=== PATIENT | male | born 1955 | race Caucasian/White ===

== ENCOUNTER 2020-04-20 15:36 | Outpatient (REF) | payer BC, SELFPAY ==
--- NOTE | ~2020-04-20 | XR_ITS ---
EXAMINATION: XR KNEE, LEFT CLINICAL INFORMATION: Knee pain COMPARISON: Previous x-ray July 2015 TECHNIQUE: Four views of the left knee. FINDINGS: Bone alignment is normal. No fracture or dislocation is seen. There is joint space narrowing and osteophyte formation at the medial femoral tibial joint. There are small osteophytes at the patellofemoral joint. There is an osteophyte at the quadriceps tendon insertion to the patella. There is no joint effusion. XR/XR knee LT 4V IMPRESSION: Mild degenerative changes.
== END 2020-04-20 15:37 | disposition home or self-care (01) ==
LOC: HO.HMGCX 15:36
PROVIDERS: PCP Nurse Practitioner Family; Visit Provider Nurse Practitioner Family
DX: M25.569 Pain in unspecified knee (principal)
CPT/HCPCS: 73564

== ENCOUNTER → 2020-05-09 10:18 | Outpatient (BNVA) | payer BC, SELFPAY | PROVIDERS: PCP Nurse Practitioner Family; Visit Provider Orthopaedic Surgery | DX: M17.12 Unilateral primary osteoarthritis, left knee (principal) | CPT/HCPCS: 20610; J1100 ==

== ENCOUNTER 2020-05-26 08:23 | Outpatient (REF) | payer BC, SELFPAY ==
--- NOTE | ~2020-05-26 | XR_ITS ---
EXAMINATION: XR KNEE AP STANDING CLINICAL INFORMATION: Pain knee. COMPARISON: None TECHNIQUE: AP bilateral standing view of the knees was obtained. FINDINGS: There is moderate medial left and mild right medial compartment loss of joint space. There is moderate periapical spurring medial compartment left knee. No loose bodies or bony erosive changes seen. The soft tissues are normal. XR/XR knee standing BI IMPRESSION: Medial compartment degenerative arthritic changes both knees. There is no visible acute fracture or dislocation seen.
== END 2020-05-26 08:24 | disposition home or self-care (01) ==
LOC: HO.HOSX 08:23
PROVIDERS: Visit Provider Orthopaedic Surgery
DX: M17.12 Unilateral primary osteoarthritis, left knee (principal); M25.462 Effusion, left knee
CPT/HCPCS: 73565

== ENCOUNTER → 2020-06-13 08:47 | Outpatient (BNVA) | payer BC, SELFPAY | PROVIDERS: Visit Provider Orthopaedic Surgery | DX: M17.12 Unilateral primary osteoarthritis, left knee (principal) | CPT/HCPCS: 20610; J1100 ==

== ENCOUNTER → 2020-06-30 08:37 | Outpatient (BNVA) | payer BC, SELFPAY | PROVIDERS: Visit Provider Orthopaedic Surgery ==

== ENCOUNTER → 2020-08-11 08:30 | Outpatient (BNVA) | payer BC, SELFPAY | PROVIDERS: PCP Nurse Practitioner Family; Visit Provider Orthopaedic Surgery ==

== ENCOUNTER → 2020-08-29 09:52 | Outpatient (BNVA) | payer BC, SELFPAY | PROVIDERS: PCP Nurse Practitioner Family; Visit Provider Orthopaedic Surgery | DX: Z01.812 Encounter for preprocedural laboratory examination (principal); Z01.810 Encounter for preprocedural cardiovascular examination; M17.12 Unilateral primary osteoarthritis, left knee ==

== ENCOUNTER 2020-09-01 07:00 | Outpatient (RCR) | payer BC, SELFPAY ==
[2020-07-25 07:12] VITALS: BP 118/70; PULSE 48
--- NOTE | 2020-08-09 08:49 | MHC.PT.OD ---
[facility] [place] Office [place] Office [place] Office [address] Sihrley Gracia [address] [phone] F: [phone] F: [phone] F: [phone] F: [phone] Physical Therapy Daily Note Diagnosis: M17.12 Unilateral primary osteoarthritis left knee signed by Dr. Lane date of script 07/19/20 Date of Surgery: Date of Evaluation: 07/25/20 Date of Treatment: 08/09/20 Treatments to Date: 5 Cancellations to Date: No Shows to Date: Authorized Visits: Insurance End Date: Precautions/ Contraindications:Sinus bradycardia, sleep apnea Subjective: Still really bothering me since I played golf. Pain Score and Location: 8 L knee Objective Flowsheet: Tests & Measures Assessment of heart rate: 55 BPM VIA PULSE OX ON BIKE 96% SPO2 ROOM AIR Exercises Science ExchangeFIT bike seat#11 level 2.5 x 10 minutes plus [place]own x additonal five minutes SLR into flexion triale SAQ irritated L knee so limited to 5 reps each Prone hip extension overpillow x 2 sets 10R Standing hip extension (pool program reviewed), standing hip abduction x 2 sets 10R (pool program), SL hip abduction x 2 sets 10R Prostretch x30 sec hold X 4R each side Prone quad stretch with strap x 2 sets 10R SEATED HS STRETCH, GENTLE DANGLES, Provided patient with educational information about TKA via orthoinfo to address patient questions/concerns he had. PRONE FOR STM TO MEDIAL HS INSERTION,PROXIMAL GASTROC MUSCULATURE X 10 MINUTES IN EFFORT TO REDUCE PAIN POSTERIOR KNEE/INCREASE TISSUE EXTENSIBILITY, EDUCATION FOR SELF CARE, REVIEWED AND EDUCATED PT RE: SELF TAPING V STRIPS WITH THIRD I STRIP TO OFFLOAD TIBIOFEMORAL JOINT APPLIED WHILE IN 90 FLEX STRETCH WITH PT TRIALING SELF CARE (+) CARRYOVER EDUCATED TO REMOVE BEFORE BED TO WEAR WHEN ON FEET Education re: icing x 10-15 minutes, education re: self care with goals of therapy, findings of evaluation, education re: anatomy of knee, questions re: TKA rehab, educated re: icing, use of pool, short gentle walks to tolerance, finding balance between stretching/icing post activity Modalities LESTIM VIA web [employer] PORTABLE UNIT SETTING #1 CH1/CH2 CROSS X PATTERNED AROUND L KNEE INTENSITY 10MA>12 MA WITH ICE WHILE IN KNEE EXT STRETCH X 10 MINUTES IN EFFORT TO REDUCE JOINT PAIN. SKIN INSPECTION PERFORMED KNEE PRE/POST CARE, WITH ICE COMBO Assessment: Issued quad stretch for home program, reviewed pool hip abd and ext as well as for bed/mat hip abd/ext. Pt is a pleasant, RHD retired 64 y/o male, referred to PT for treatment from Dr. Lane for L knee OA following ongoing history of increasing L knee pain. Pt exhibits decreased tolerance for walking short distances, standing, and stairs. He does not use any form of AD. He is tentatively scheduled for L TKA on 09/28/20; has had previous knee injections x 2 and history of having L knee drained (Dr. Lane [facility]). Pt would benefit from attending skilled PT services at a frequency 2x/week x 4 weeks to address impairments, implement HEP, and restore functional mobility tolerance to increase independent function. PT Plan: Pt has been using airdyne bike at home 1-2x/daily 10-15 minutes, reports limited relief with stretching/icing. Reports restless legs/night sx are the worst... Has been able to complete SLR in the past with good eccentric control/ext however today it was irritating so it was held after 5 reps. Pt to see Dr. Lane's office for follow up on ... reports ongoing soreness, new onset of R medial ankle soreness, encouraged trial icing. (Iced R ankle with L knee/ice/estim today). Short Term Goals: 1. AAROM -5 degrees L knee ext. 2. AAROM flexion 120 L knee. 3. SLR with good eccentric control. 4. Strength hip abd 5/5 B. 5. Demonstrate carryover with HEP, initiate self care management. Residential Goals: 1. AAROM>AROM L knee 0 to 125 degrees. 2. Strength L knee 5/5 ext/flex. 3. Demonstrate functional squat with good mechanics, knee pain <3/10. 4. I HEP. Electronically signed by: Ting Johnson, PT, DPT
--- NOTE | 2020-08-29 11:15 | ECG_ITS ---
Test Reason : PREOP, BRADYCARDIA Blood Pressure : / mmHG Vent. Rate : 044 BPM Atrial Rate : 044 BPM P-R Int : 224 ms QRS Dur : 082 ms QT Int : 520 ms P-R-T Axes : 065 041 060 degrees QTc Int : 444 ms Marked sinus bradycardia with 1st degree A-V block Abnormal ECG When compared with ECG of 26-DEC-2009 05:01, Vent. rate has decreased BY 24 BPM Referred By: Doug Lane Electronically Signed By:Xavi Nino
[2020-08-29 11:44] LABS: Basophils Percent Auto 0.4 % (0-2); Eosinophils Absolute Auto 0.2 X10*3/uL (0.0-0.4); Hematocrit 41.3 % (42-52); Hemoglobin 13.6 g/dl (14.0-18.0); Imm Gran Abs Auto 0.02 X10*3/uL (0.00-0.03); Imm Gran Pct Auto 0.4 % (0.0-0.4); Lymphocytes Absolute Auto 1.4 X10*3/uL (1.2-4.9); Lymphocytes Percent Auto 25.1 % (20-40); MANUAL DIFF FLAG NO; Mean Corpuscular HGB Conc 32.9 g/dl (31.0-36.0); Mean Corpuscular Hemoglobin 29.8 pg (27.0-33.0); Mean Corpuscular Volume 90.6 fL (80-98); Mean Platelet Volume 10.6 fL (9.4-12.4); Monocytes Absolute Auto 0.8 X10*3/uL (0.1-1.2); Monocytes Percent Auto 13.3 % (2-11); Neutrophils Absolute Auto 3.3 X10*3/uL (2.0-8.3); Neutrophils Percent Auto 57.8 % (45-73); Platelet Count 182 X10*3/uL (160-400); Red Blood Count 4.56 X10*6/uL (4.60-5.80); Red Cell Distribution Width 12.9 % (11.0-16.0); White Blood Count 5.7 X10*3/uL (4.8-10.8)
[2020-08-29 12:15] LABS: Anion Gap 13 (12-20); Blood Urea Nitrogen 25 mg/dL (9-16); Calcium 9.1 mg/dL (8.4-10.2); Carbon Dioxide 25 mmol/L (22-29); Chloride 106 mmol/L (96-108); Estimated Glomerular Filt Rate > 60; Glucose Random 93 mg/dL (60-115); Potassium 4.5 mmol/L (3.3-5.1); Sodium 139 mmol/L (135-145)
== END 2021-01-20 12:48 | disposition home or self-care (01) ==
LOC: HO.PTWFD 07:00
PROVIDERS: PCP Nurse Practitioner Family; Visit Provider Orthopaedic Surgery
DX: M17.12 Unilateral primary osteoarthritis, left knee (principal)
CPT/HCPCS: 36415; 80048; 85025; 93005; 97014; 97035; 97110; 97140; 97162; 97535

== ENCOUNTER → 2020-10-13 09:16 | Outpatient (BNVA) | payer MEDICARE, BC, SELFPAY | PROVIDERS: PCP Nurse Practitioner Family; Visit Provider Orthopaedic Surgery | DX: M17.12 Unilateral primary osteoarthritis, left knee (principal); I26.99 Other pulmonary embolism without acute cor pulmonale | CPT/HCPCS: 20610; J1100 ==

== ENCOUNTER 2021-03-06 10:43 | Outpatient (REF) | payer MEDICARE, BC, SELFPAY ==
[2021-03-06 14:00] LABS: MANUAL DIFF FLAG NO
[2021-03-06 14:06] LABS: Basophils Percent Auto 0.4 % (0-2); Eosinophils Absolute Auto 0.2 X10*3/uL (0.0-0.4); Eosinophils Percent Auto 3.4 % (0-4); Hemoglobin 14.4 g/dl (14.0-18.0); Imm Gran Abs Auto 0.03 X10*3/uL (0.00-0.03); Imm Gran Pct Auto 0.4 % (0.0-0.4); Lymphocytes Absolute Auto 1.7 X10*3/uL (1.2-4.9); Lymphocytes Percent Auto 25.7 % (20-40); Mean Corpuscular Hemoglobin 29.4 pg (27.0-33.0); Mean Platelet Volume 10.7 fL (9.4-12.4); Monocytes Absolute Auto 0.7 X10*3/uL (0.1-1.2); Monocytes Percent Auto 10.9 % (2-11); Neutrophils Percent Auto 59.2 % (45-73); Platelet Count 208 X10*3/uL (160-400); Red Blood Count 4.89 X10*6/uL (4.60-5.80); Red Cell Distribution Width 13.1 % (11.0-16.0); White Blood Count 6.8 X10*3/uL (4.8-10.8)
[2021-03-06 14:09] LABS: INTERNATIONAL NORM RATIO 1.2 (0.9-1.1); Prothrombin Time 13.7 SEC (9.9-13.0)
[2021-03-06 14:12] LABS: Partial Thromboplastin Time 37.9 SEC (24.1-38.0)
[2021-03-06 14:23] LABS: Alanine Aminotransferase 26 U/L (0-40); Albumin Level 4.4 g/dL (3.5-5.0); Alkaline Phosphatase 58 U/L (39-117); Anion Gap 11 (12-20); Aspartate Amino Transferase 15 U/L (5-37); Bilirubin Total 0.7 mg/dL (0.0-1.0); Blood Urea Nitrogen 14 mg/dL (9-16); Calcium 9.4 mg/dL (8.4-10.2); Carbon Dioxide 29 mmol/L (22-29); Chloride 102 mmol/L (96-108); Estimated Glomerular Filt Rate > 60; Glucose Random 89 mg/dL (60-115); Potassium 4.4 mmol/L (3.3-5.1); Sodium 138 mmol/L (135-145)
== END 2021-03-06 10:44 | disposition home or self-care (01) ==
LOC: HO.HMGCLDS 10:43
PROVIDERS: Absent Provider Orthopaedic Surgery; PCP Nurse Practitioner Family; Visit Provider Nurse Practitioner Family
DX: Z01.812 Encounter for preprocedural laboratory examination (principal); Z01.818 Encounter for other preprocedural examination
CPT/HCPCS: 36415; 80053; 85025; 85610; 85730

== ENCOUNTER 2021-03-13 10:04 | Outpatient (REF) | payer MEDICARE, BC, SELFPAY | END 2021-03-13 10:05 | disposition home or self-care (01) | LOC: HO.HMGCLDS 10:04 | PROVIDERS: Visit Provider Internal Medicine | DX: Z20.822 Contact with and (suspected) exposure to COVID-19 (principal) | CPT/HCPCS: C9803; U0003; U0005 ==

== ENCOUNTER 2021-03-23 08:40 | Outpatient (REF) | payer MEDICARE, BC, SELFPAY ==
--- NOTE | ~2021-03-23 | XR_ITS ---
EXAMINATION: XR KNEE, LEFT XR KNEE STANDING, BILATERAL CLINICAL INFORMATION: Left knee pain. COMPARISON: 05/26/2020 and 04/20/2020 TECHNIQUE: AP standing view of both knees with patellar and lateral views of the left knee. FINDINGS: AP standing view of both knees demonstrate severe narrowing of the medial joint space compartment of the left knee which appears to have progressed slightly compared to previous study of 05/26/2020. No acute fracture or dislocation is evident. Marginal spurring is seen about the medial and lateral joint space compartments of the left knee. There is no significant narrowing of the medial or lateral joint space compartments of the right knee. Prominent varicosities are seen within the soft tissues of the right leg with the appearance of a few within the left calf. [place] and lateral views of the left knee do not demonstrate evidence of acute fracture or dislocation. Prominent spurring at the patellofemoral joint is present as well as a small suprapatellar effusion. There is a large patellar spur site of insertion of the quadriceps tendon. XR/XR knee LT 2V IMPRESSION: Severe degenerative change of the medial joint space compartment of the left knee and the patellofemoral joint with small suprapatellar effusion.
--- NOTE | ~2021-03-23 | XR_ITS ---
EXAMINATION: XR KNEE, LEFT XR KNEE STANDING, BILATERAL CLINICAL INFORMATION: Left knee pain. COMPARISON: 05/26/2020 and 04/20/2020 TECHNIQUE: AP standing view of both knees with patellar and lateral views of the left knee. FINDINGS: AP standing view of both knees demonstrate severe narrowing of the medial joint space compartment of the left knee which appears to have progressed slightly compared to previous study of 05/26/2020. No acute fracture or dislocation is evident. Marginal spurring is seen about the medial and lateral joint space compartments of the left knee. There is no significant narrowing of the medial or lateral joint space compartments of the right knee. Prominent varicosities are seen within the soft tissues of the right leg with the appearance of a few within the left calf. [place] and lateral views of the left knee do not demonstrate evidence of acute fracture or dislocation. Prominent spurring at the patellofemoral joint is present as well as a small suprapatellar effusion. There is a large patellar spur site of insertion of the quadriceps tendon. XR/XR knee standing BI IMPRESSION: Severe degenerative change of the medial joint space compartment of the left knee and the patellofemoral joint with small suprapatellar effusion.
== END 2021-03-23 08:41 | disposition home or self-care (01) ==
LOC: HO.HOSX 08:40
PROVIDERS: Visit Provider Physician Assistant
DX: M17.12 Unilateral primary osteoarthritis, left knee (principal); M25.562 Pain in left knee; Z79.899 Other long term (current) drug therapy
CPT/HCPCS: 73560; 73565; 99212

== ENCOUNTER 2021-03-29 06:18 | Inpatient (IN) | payer MEDICARE, BC, SELFPAY ==
[2021-03-16 11:56] VITALS: BP 135/83; PULSE 59; RESP 20; O2SAT 96; BMI 36.6
[2021-03-16 14:58] LABS: MRSA Nasal PCR NEGATIVE (Negative); SA Nasal PCR NEGATIVE (Negative)
--- NOTE | 2021-03-27 08:57 | P.CONAN_ITS ---
Documented by User: Tawnya Yañez NP 03/27/21 09:00 HPI - Anesthesia Eval Consult details Narrative: 65yo M for Left Knee Replacement Total PCP cleared Xarelto for PE - hold 48 hours preop per heme PMFSH Active Problems Active Problems: All Active Problems (Updated 03/16/21 @ 11:53 by Monse Monreal RN) Restless leg (Acute) Knee pain (Acute) Osteoarthritis of left knee (Acute) Pulmonary embolism (Acute) Pre-op evaluation (Acute) Past Medical History Medical History On anticoagulant therapy Pulmonary emboli Restless leg syndrome Sinus bradycardia Sleep apnea Family History Family History Father History of CVA (cerebrovascular accident) Diabetes mellitus Mother Diabetes mellitus Surgical History Surgical History History of umbilical hernia repair Hx of colonoscopy Social History Social History Housing: House Are you a primary critical care physician assistant to a significant other at home: No Do you presently have visiting nurse or other home services: No Alcohol intake: current Alcohol intake frequency: a few times a month Patient Tobacco Use Status: Never used Tobacco e-Cigarette/Vaping Use: Never Used Second Hand Smoke Exposure: No Use of substances other than those prescribed or required for medical reasons: No Have you been hit, kicked, punched, or otherwise hurt by someone within the past year? If so, by whom?: No Are you DNR?: No Advance Directives: No Advance Directives Information Provided: Yes (given to patient- states Jannet would be HCP) Advance Directives on File: No Recently lost weight without trying: No Eating poorly because of decreased appetite: No Nutrition Risks: No Nutritional Risk Poor oral hygiene: No Current occupational status: retired Current occupation: right handed Meds Allergies Allergy/AdvReac Type Severity Reaction Status Date / Time No Known Allergies Allergy Verified 03/23/21 12:44 [No Known Allergies*] Home Medications Medication Instructions Recorded Confirmed Last Taken Type ferrous gluconate 324 mg (38 mg 324 mg PO Q OTHER DAY 03/01/21 03/23/21 Unknown History iron) tablet oxycodone 10 mg tablet 10 mg PO BEDTIME 03/23/21 03/23/21 Unknown History Exam Exam Date and Time: March 27, 2021 0857 Height,Weight and Vital Signs: Height 6 ft Weight 122.47 kg Last Vital Signs Pulse 59 03/16/21 11:56 Resp 20 03/16/21 11:56 BP 135/83 03/16/21 11:56 Pulse Ox 96 03/16/21 11:56 Pertinent Lab Results Pertinent Lab Results: Laboratory Tests 03/16/21 03/16/21 12:40 Unknown Nasal Screen MRSA (PCR) NEGATIVE Nasal S. aureus Screen NEGATIVE Nasal MRSA/S.aureus Interp SEE NOTE Blood Type A Negative Antibody Screen NEGATIVE Laboratory Tests 03/06/21 03/06/21 10:50 10:50 WBC 6.8 Hgb 14.4 Hct 45.0 Plt Count 208 Sodium 138 Potassium 4.4 Chloride 102 Carbon Dioxide 29 BUN 14 Creatinine 0.85 Narrative Narrative: EKG 02/2021 SB @ 56 with 1st deg AV block Non-specific ST-T abn Assessment and Plan Assessment Anesthesia Assessment: Chart Reviewed Documented by User: Lyly Huang MD 03/29/21 08:37 PMFSH Active Problems Active Problems: All Active Problems (Updated 03/16/21 @ 11:53 by Monse Monreal RN) Restless leg (Acute) Knee pain (Acute) Osteoarthritis of left knee (Acute) Pulmonary embolism (Acute)09/2020. On xarelto Pre-op evaluation (Acute) Central Sleep apnea. Being evaluated for Adaptive servo-ventilation at [facility] Past Medical History Medical History On anticoagulant therapy Pulmonary emboli Restless leg syndrome Sinus bradycardia Sleep apnea Family History Family History Father History of CVA (cerebrovascular accident) Diabetes mellitus Mother Diabetes mellitus Family history of problems with anesthesia: No Surgical History Surgical History History of umbilical hernia repair Hx of colonoscopy History of Problems with Anesthesia: No Social History Social History Housing: House Are you a primary critical care physician assistant to a significant other at home: No Do you presently have visiting nurse or other home services: No Alcohol intake: current Alcohol intake frequency: a few times a month Patient Tobacco Use Status: Never used Tobacco e-Cigarette/Vaping Use: Never Used Second Hand Smoke Exposure: No Use of substances other than those prescribed or required for medical reasons: No Have you been hit, kicked, punched, or otherwise hurt by someone within the past year? If so, by whom?: No Are you DNR?: No Advance Directives: No Advance Directives Information Provided: Yes (given to patient- states Jannet would be HCP) Advance Directives on File: No Recently lost weight without trying: No Eating poorly because of decreased appetite: No Nutrition Risks: No Nutritional Risk Poor oral hygiene: No Current occupational status: retired Current occupation: right handed Meds Allergies Allergy/AdvReac Type Severity Reaction Status Date / Time No Known Allergies Allergy Verified 03/23/21 12:44 [No Known Allergies*] Home Medications Medication Instructions Recorded Confirmed Last Taken Type ferrous gluconate 324 mg (38 mg 324 mg PO Q OTHER DAY 03/01/21 03/23/21 Unknown History iron) tablet oxycodone 10 mg tablet 10 mg PO BEDTIME 03/23/21 03/23/21 Unknown History Exam Height,Weight and Vital Signs: Height 6 ft Weight 122.47 kg Last Vital Signs Pulse 59 03/16/21 11:56 Resp 20 03/16/21 11:56 BP 135/83 03/16/21 11:56 Pulse Ox 96 03/16/21 11:56 Vital Signs Temp Pulse Resp BP Pulse Ox 03/29/21 06:43 97.6 F 46 L 18 140/77 H 98 Pertinent Lab Results Pertinent Lab Results: Laboratory Tests 03/16/21 03/16/21 12:40 Unknown Nasal Screen MRSA (PCR) NEGATIVE Nasal S. aureus Screen NEGATIVE Nasal MRSA/S.aureus Interp SEE NOTE Blood Type A Negative Antibody Screen NEGATIVE Laboratory Tests 03/06/21 03/06/21 10:50 10:50 WBC 6.8 Hgb 14.4 Hct 45.0 Plt Count 208 Sodium 138 Potassium 4.4 Chloride 102 Carbon Dioxide 29 BUN 14 Creatinine 0.85 Laboratory Results - last 24 hr 03/29/21 03/29/21 06:17 06:29 COVID-19 (JULIO) Negative COVID-19 Clin Com See Note Blood Type A Negative Antibody Screen NEGATIVE Airway Mallampati Class: III TM Dist: >3cm Neck ROM: Full Loose/Missing/Broken Teeth: No Heart: RRR Lungs: CTAB Assessment and Plan Assessment Anesthesia Assessment: Anesthesia Plan Discussed Final Anesthetic Review Family History of Problems with Anesthesia: No History of Problems with Anesthesia: No NPO: Yes ASA Class: III Final Preanesthetic Review: No Changes in Pt Med Stat, Meds/Allgs Chart Reviewed, Consent Obtained/Reviewed and Anes Risks/Benef Reviewed Patient Risk: Intermediate Procedure Risk: Intermediate Assessment/Block/Sedation in SS: Assess/Block/Sedation- Anesthetic Plan Anesthetic Plan: Spinal and Regional Block (Left adductor canal block) Disposition: Standard PACU and Inp. Admit - Standard Bed
[2021-03-29] VITALS (23 sets, daily range): BP systolic 93–140; BP diastolic 48–81; PULSE 46–70; RESP 14–20; TEMP 36.3–37.7; O2SAT 94–98
--- NOTE | ~2021-03-29 | XR_ITS ---
EXAMINATION: XR KNEE, LEFT CLINICAL INFORMATION: Left knee replacement COMPARISON: Previous x-ray most recent 03/23/2021 TECHNIQUE: 2 views of the left knee. FINDINGS: There is a new 3 component knee replacement satisfactory position. No fracture or dislocation is seen. There are postoperative changes to the soft tissues. XR/XR knee LT 2V IMPRESSION: Satisfactory appearance of left knee replacement.
[2021-03-29 07:05] LABS: COVID-19 Test Negative (Negative); IDNOW Serial# 9DD0AD1C
[2021-03-29] MEDS: Lactated Ringers 1,000 ML 100 ML IVCONT (07:19)
--- NOTE | 2021-03-29 07:27 | MHC.SHP ---
Pre-Procedural Eval Section A Date of Service: 03/29/21 The patient is an INPATIENT: No Changes since office visit: Yes Patient answered all questions; No Cold of Flu in the past 2 weeks, No New Medical Problems and No Changes in Medication The History & Physical has been completed within 30 days and I have reviewed it.: Yes Section B Chief Complaint: LT TKA Allergies: Allergies Allergy/AdvReac Type Severity Reaction Status Date / Time No Known Allergies Allergy Verified 03/23/21 12:44 [No Known Allergies*] Plan I have reviewed the history and physical and performed a pertinent physical examination on my patient. No changes have occurred unless specified.
--- NOTE | 2021-03-29 09:45 | PM.OP ---
Brief Operative Note Date of Service: 03/29/21 Pre-op diagnosis: left knee OA Post-op diagnosis: same Procedure: Left TKA Implants: [place] triathalon press fit cruciate retaining Surgeon: Doug Lane MD Anesthesia: regional and spinal Was an Rough And Truing Machine Operator used for this Procedure?: Yes Rough And Truing Machine Operator: Danelle Bishop Estimated blood loss (mL): 200 IV fluids (mL): 1,100 Pathology: other Condition: stable Disposition: PACU
--- NOTE | 2021-03-29 09:58 | W.PM.OPN ---
Operative Note Operative Note Date of Service: 03/29/21 Narrative: Date of Service: 03/29/21 Pre-op diagnosis: left knee OA Post-op diagnosis: same Procedure: Left TKA Implants: [place] triathalon press fit cruciate retaining Surgeon: Doug Lane MD Anesthesia: regional and spinal Was an Swing Tender used for this Procedure?: Yes Swing Tender: Danelle Bishop Estimated blood loss (mL): 200 IV fluids (mL): 1,100 Pathology: other Condition: stable Disposition: PACU Procedure in detail: The patient was brought to the operating room and prepped and draped in standard sterile fashion. A time-out was called to identify proper site proper procedure proper surgeon and IV antibiotics were administered. 1 g of IV tranexamic acid was not administered. I began by making a midline incision to the retinaculum and performed a medial parapatellar arthrotomy. The patella was translated laterally and the knee was flexed up. The medial compartment was eburnated. The cruciates were intact. I performed a small medial peel and resected the infrapatellar fat pad. [place]'s line was then used to drill my intramedullary femoral guide and my distal femur cut of 12 mm ( 10 deg pre-operative flexion contracture) was made in 5 degrees of valgus while protecting the soft tissues. I then measured a # 7 femur and placed my cutting guide and made my anterior posterior and chamfer cuts protecting the soft tissues at all times. Once I was satisfied with my cuts I turned my attention to the tibia. I removed the meniscus medially and laterally and , using an external cutting guide, in line with the tibial crest and the third ray, I made my distal tibial cut in 3 deg slope of while protecting the PCL the posterior soft tissues at all times. An extension block was used to confirm appropriate amount of bony resection. I then sized a #6 tibia and once I was satisfied that there was complete tibial coverage I placed my trial and with the trial femur in place took the knee through range of motion. I was satisfied with the extension and flexion as well as the stability at 0, 30 and 90 degrees. I then turned my attention to the patella. The lateral facet was eburnated. I removed 1 cm from the undersurface of the patella and then trialed a 40a patellar button. Again the knee was taken through range of motion I was satisfied with the tracking. I then returned to the femur and drilled my femoral lug holes and prepared the tibia. A femoral bone plug was placed and the knee was irrigated copiously. I then press fit the patella, tibia and femur in standard fashion. I trialed different inserts until I selected a #9 CR insert. The final insert was placed and a 3 minutes iodine soak with local TXA was performed. The knee was then closed with a running Quill suture, a 3 0 Vicryl and chase on the skin. Patient was then placed in sterile dressing and brought to recovery room in stable condition there were no known complications.
[2021-03-29] MEDS: Dextrose 5 % and 0.45 % NaCl 1,000 ML 80 ML IVCONT ×2 (10:44→23:09)
[2021-03-29] MEDS: oxyCODONE HCl Immed Release 5 MG TABLET PO ×2 (12:55→18:14)
[2021-03-29] MEDS: Acetaminophen 325 MG TABLET 650 MG PO ×2 (12:56→18:17)
[2021-03-29] MEDS: ceFAZolin Sodium/Dextrose,Iso 2 GM/50 ML PIGGYBACK IV (13:51)
[2021-03-29] MEDS: HYDROmorphone HCl 0.5 MG/0.5 ML SYRINGE 0.25 MG IVPUSH ×4 (13:55→14:40)
[2021-03-29] MEDS: HYDROmorphone HCl 1 MG/ML SYRINGE 0.25 MG IVPUSH (19:32)
[2021-03-29] MEDS: Celecoxib 200 MG CAPSULE PO (21:50)
[2021-03-29] MEDS: Docusate Sodium 100 MG CAPSULE PO (21:50)
[2021-03-29] MEDS: oxyCODONE HCl ER 10 MG TAB.ER.12H PO (21:51)
[2021-03-29] MEDS: rOPINIRole HCL 1 MG TABLET 5 MG PO (22:56)
[2021-03-30] VITALS (7 sets, daily range): BP systolic 104–135; BP diastolic 56–72; PULSE 18–70; RESP 16–18; TEMP 36.1–37.3; O2SAT 93–97
[2021-03-30 04:32] LABS: MANUAL DIFF FLAG NO
[2021-03-30 04:35] LABS: Basophils Percent Auto 0.1 % (0-2); Eosinophils Absolute Auto 0.1 X10*3/uL (0.0-0.4); Eosinophils Percent Auto 0.8 % (0-4); Hematocrit 33.5 % (42.0-52.0); Imm Gran Abs Auto 0.03 X10*3/uL (0.00-0.03); Imm Gran Pct Auto 0.4 % (0.0-0.4); Lymphocytes Absolute Auto 1.3 X10*3/uL (1.2-4.9); Mean Corpuscular HGB Conc 32.8 g/dl (31.0-36.0); Mean Corpuscular Hemoglobin 29.9 pg (27.0-33.0); Mean Platelet Volume 9.9 fL (9.4-12.4); Monocytes Absolute Auto 1.4 X10*3/uL (0.1-1.2); Monocytes Percent Auto 16.3 % (2-11); Neutrophils Absolute Auto 5.7 x10*3/uL (2.0-8.3); Neutrophils Percent Auto 67.4 % (45-73); Platelet Count 165 X10*3/uL (160-400); Red Blood Count 3.68 X10*6/uL (4.60-5.80); Red Cell Distribution Width 12.9 % (11.0-16.0); White Blood Count 8.5 X10*3/uL (4.8-10.8)
[2021-03-30 04:49] LABS: Anion Gap 11 (12-20); Blood Urea Nitrogen 18 mg/dL (9-16); Calcium 8.3 mg/dL (8.4-10.2); Carbon Dioxide 27 mmol/L (22-29); Chloride 102 mmol/L (96-108); Creatinine Clr Calc Pharmacy 119.9; Estimated Glomerular Filt Rate > 60; Glucose Fasting 131 mg/dL (60-99); Potassium 4.2 mmol/L (3.3-5.1); Sodium 136 mmol/L (135-145)
--- NOTE | 2021-03-30 07:23 | P.PNOP_ITS ---
Subjective Subjective Date of Service: 03/30/21 Interval history: pod1 status post left arthroplasty Dr. Lane. Patient is resting comfortably in bed. Patient states no overnight events. Pain is well managed. States that he worked with physical therapy yesterday went well. No additional complaints. Physical Exam Vital Signs: Vital Signs: Last Vital Signs Temp 98.5 F 03/30/21 05:16 Pulse 58 03/30/21 05:16 Resp 16 03/30/21 05:16 BP 120/72 03/30/21 05:16 Pulse Ox 97 03/30/21 05:16 BMI result Body Mass Index 36.6 Const: General: cooperative, healthy appearing and no acute distress Resp: Effort & Inspection: normal respiratory effort and able to speak in complete sentences Cardio: Rate: regular rate Peripheral pulses: Peripheral pulses 2+ throughout GI: Palpation (GI): Soft to palpation Skin: Lesions: no lesions Rashes: no rashes Extrem: Other: left knee Aquacel dressing is clean dry and intact. Patient is able to dorsiflex and plantar flex. Sensation intact. Pedal pulse intact. Calf is supple and nontender. Procedures Date of Service Date of Service: 03/30/21 Progress Note: A&P Assessment and plan (1) Status post total left knee replacement: Status: Acute Assessment and Plan: Continue pain mgmnt Begin xarelto 5mg today, 10mg tomorrow and resume normal dose of 20mg the following day for dvt ppx Begin PT for ltka - WBAT Dispo planning-Pending PT eval, pain mgmnt Fall Risk Details Current Medications: Current Medications Acetaminophen (Acetaminophen 325 Mg Tablet) 650 mg PO Q6H PRN PRN Reason: Pain, Mild (Pain Scale 1-3) Last Admin: 03/29/21 18:17 Dose: 650 mg Documented by: Celecoxib (Celecoxib 200 Mg Capsule) 200 mg PO BID [facility] Last Admin: 03/29/21 21:50 Dose: 200 mg Documented by: Docusate Sodium (Docusate Sodium 100 Mg Capsule) 100 mg PO BID [facility] Last Admin: 03/29/21 21:50 Dose: 100 mg Documented by: Hydromorphone HCl (Hydromorphone Hcl 1 Mg/Ml Syringe) 0.25 mg IVPUSH Q4H PRN; Protocol PRN Reason: Pain, Severe (Pain Scale 7-10) Last Admin: 03/29/21 19:32 Dose: 0.25 mg Documented by: Lactated Ringer's (Lr) 1,000 mls @ 100 mls/hr IVCONT .Q10H [facility] Last Infusion: 03/29/21 11:49 Dose: Infused Documented by: Dextrose/Sodium Chloride (D51/2ns) 1,000 mls @ 80 mls/hr IVCONT .[id number] [facility] Last Admin: 03/29/21 23:09 Dose: 80 mls/hr Documented by: Ondansetron HCl (Ondansetron Hcl 4 Mg/2 Ml Vial) 4 mg IVPUSH ONCE PRN PRN Reason: Nausea and Vomiting Ondansetron HCl (Ondansetron Hcl 4 Mg/2 Ml Vial) 4 mg IVPUSH Q8H PRN PRN Reason: Nausea and Vomiting Oxycodone HCl (Oxycodone Hcl Immed Release 5 Mg Tablet) 5 mg PO Q4H PRN PRN Reason: Pain, Moderate (Pain Scale 4-6 Last Admin: 03/29/21 18:14 Dose: 5 mg Documented by: Oxycodone HCl (Oxycodone Hcl Er 10 Mg Tab.Er.12h) 10 mg PO BID [facility] Last Admin: 03/29/21 21:51 Dose: 10 mg Documented by: Ropinirole HCl (Ropinirole Hcl 1 Mg Tablet) 5 mg PO BEDTIME [facility] Last Admin: 03/29/21 22:56 Dose: 5 mg Documented by: Sodium Chloride (0.9 % Sodium Chloride Flush 3 Ml Syringe) 3 ml IVFLUSH QSHIFT [facility] Last Admin: 03/30/21 00:18 Dose: Not Given Documented by: Time Spent With Patient Time: Total time spent is greater than 50% in coordination of care (as documented) at patient's floor/unit and/or counseling patient: Time with patient: less than 15 minutes Quality Stroke Does the patient have a stroke diagnosis?: No VTE Prior VTE?: No VTE Risk Level:: Surgical - very high VTE Device Contraindication: N/A - Device Ordered VTE Drug Contraindication: N/A - Med Ordered
--- NOTE | 2021-03-30 07:35 | PC.NURSE ---
Bfast tray delivered
--- NOTE | 2021-03-30 08:41 | PC.NURSE ---
Report to Desiree Madison RN
[2021-03-30] MEDS: oxyCODONE HCl ER 10 MG TAB.ER.12H PO ×2 (09:17→20:23)
[2021-03-30] MEDS: Docusate Sodium 100 MG CAPSULE PO ×2 (09:48→20:23)
[2021-03-30] MEDS: Acetaminophen 325 MG TABLET 650 MG PO ×2 (09:48→18:05)
[2021-03-30] MEDS: Celecoxib 200 MG CAPSULE PO ×2 (09:48→20:23)
--- NOTE | 2021-03-30 09:56 | PHA.MEDREC ---
Pharmacy Consult ? Medication Reconciliation Pharmacy has completed the medication reconciliation. Patient reports he was taking Xarelto prior to surgery however is now suppose to stop since he was only on it for 6 month. Will keep on medication list for provider to determine if patient required more time or if he can stop it. Cintia Bolton, PharmD
--- NOTE | 2021-03-30 10:38 | PM.DS ---
DS: Providers Provider Date of Service: 03/31/21 Date of admission: 03/29/21 06:18 Primary care physician: ENEDINA Garcia Consults: 03/29/21 09:56 Consult to Hospitalist Routine Consulting Provider: Hospitalist Reason For Exam: routine medical management hx PE DS: Diagnosis Discharge Diagnosis (1) Status post total left knee replacement: Status: Acute DS: Summary Hospital Course Hospital Course: The patient underwent a successful left total knee arthroplasty, they were transferred to PACU and then to the floor to recover. During their stay, their vitals were stable, afebrile at 98.0. Labs were unremarkable, H/H 10.8/33.8. POD 1 they were started on Xarelto 5mg, 10mg the following two days and then the patient is to resume normal dose of 20mg the following day for DVT ppx. They also received Physical Therapy services twice a day. Prior to discharge, their dressing was changed, incision clean dry and intact, new Aquacel dressing applied and the plan was to be discharged home with VNA services. Time Spent with Patient Time attestation: Total time spent providing and/or coordinating discharge services: Discharge coordination time: Less than 30 minutes Quality: Stroke Does the patient have a stroke diagnosis?: No Physical Exam Vital Signs: Vital Signs: Last Vital Signs Temp 98.5 F 03/30/21 05:16 Pulse 58 03/30/21 05:16 Resp 16 03/30/21 05:16 BP 120/72 03/30/21 05:16 Pulse Ox 97 03/30/21 05:16 BMI result Body Mass Index 36.6 Const: General: cooperative, healthy appearing and no acute distress Resp: Effort & Inspection: normal respiratory effort and able to speak in complete sentences Cardio: Rate: regular rate Peripheral pulses: Peripheral pulses 2+ throughout GI: Palpation (GI): Soft to palpation Skin: Lesions: no lesions Rashes: no rashes Extrem: Other: Left knee insicion is clean dry and intact. Claudio intact.? Sensation intact.? Patient is able to dorsiflex and plantarflex. Pedal pulse intact. New Aquacel dressing applied. DS: Data Data Completed and Pending Pending studies at discharge: Pending at discharge 03/29/21 09:26 Surgical [PTH] Routine Labs on day of discharge: Laboratory Results - last 24 hr 03/30/21 03/30/21 04:14 04:14 WBC 8.5 RBC 3.68 L D Hgb 11.0 L D Hct 33.5 L D MCV 91.0 MCH 29.9 MCHC 32.8 RDW 12.9 Plt Count 165 MPV 9.9 Immature Gran % (Auto) 0.4 Neut % (Auto) 67.4 Lymph % (Auto) 15.0 L [place] % (Auto) 16.3 H Eos % (Auto) 0.8 Baso % (Auto) 0.1 Lymph # (Auto) 1.3 [place] # (Auto) 1.4 H Eos # (Auto) 0.1 Baso # (Auto) 0.0 Abs Immat Gran (auto) 0.03 Absolute Neuts (auto) 5.7 Absolute Nucleated RBC 0.000 Nucleated RBC % (auto) 0.0 Sodium 136 Potassium 4.2 Chloride 102 Carbon Dioxide 27 Anion Gap 11 L BUN 18 H Creatinine 0.83 Estim Creat Clear Calc 119.9 Estimated GFR > 60 Fasting Glucose 131 H Calcium 8.3 L D Discharge Plan Discharge Patient Disposition: Home Health Service Discharge Diagnosis: s/p LTKA Referrals: Lanny WERNER [Outside] - 3-5 Days (HOME PHYSICAL THERAPY, YOUR START OF CARE WILL BE Saturday04/01/21.) Chino Liriano PA-C [Physician Emergency Veterinary Assistant] - 1 Week (04/13/20 at 12:45 with your first physical therapy session ) Discharge Medications: New acetaminophen 325 mg Tablet 650 mg PO Q6H PRN (Reason: Pain, Mild (Pain Scale 1-3)) 30 Days Qty: 240 RF: 0 celecoxib 200 mg Capsule 200 mg PO BID 30 Days Qty: 60 RF: 0 oxycodone [OxyContin] 10 mg Tablet,Oral Only,Ext.Rel.12 Hr 10 mg PO BID 3 Days Qty: 6 RF: 0 docusate sodium 100 mg Capsule 100 mg PO BID 30 Days Qty: 60 RF: 0 oxycodone 10 mg tablet 10 mg PO Q4H PRN (Reason: pain (scale score 4-6)) 7 Days Qty: 42 RF: 0 Continued Xarelto 20 mg tablet 20 mg PO DAILY 90 Days Qty: 90 RF: 4 ropinirole 5 mg tablet 1 tab PO DAILY@1999 RF: 0 ferrous gluconate 324 mg (38 mg iron) tablet 324 mg PO Q48H RF: 0 Discontinued oxycodone 10 mg tablet 10 mg PO BEDTIME RF: 0 Discharge Orders: Discharge Order (Routine); Ordered 03/31/21 Ordered By: Chino Liriano Diet: advance to usual diet Activity on Discharge: Use cane or walker Stand Alone Forms: Patient Portal Discharge page Care Plan Goals: restore fxn to the left knee Health Concerns: none Plan of Treatment: Physical Therapy for ROM 0-120, quad strength, gait training. Use walker for ambulation Limit stair climbing, No shower, No tub bath, No driving Continue anticoagulant. Xeralto 5mg today, 10mg 03/31/21, 10mg 04/01/21, resume 20mg dose 04/02/21 Keep Aquacel dressing clean, dry and intact. Follow up with orthopedics in 2 weeks Assessment: stable for d/c Discharge Date/Time: 03/31/21 12:22
[2021-03-30] MEDS: Rivaroxaban 10 MG TABLET 5 MG PO (11:23)
[2021-03-30] MEDS: Dextrose 5 % and 0.45 % NaCl 1,000 ML 80 ML IVCONT (11:25)
[2021-03-30] MEDS: oxyCODONE HCl Immed Release 5 MG TABLET 10 MG PO (13:59)
--- NOTE | 2021-03-30 14:05 | HO.POSTANES ---
Post Anesthesia Evaluation Post Anesthesia Evaluation Vital Signs: Vital Signs Temp Pulse Resp BP Pulse Ox 03/30/21 12:10 98.3 F 18 L 18 104/63 95 03/30/21 05:16 98.5 F 58 16 120/72 97 03/30/21 02:29 99.2 F 57 16 111/65 95 Anesthesia: Spinal and Nerve Block Mental Status: Awake Pain Control: Satisfactory Nausea/Vomiting: None Hydration: Adequate Anesthesia-Related Issues: No Anes. Related Issues
--- NOTE | 2021-03-30 15:34 | MHC.CM.PN ---
IMM 03/30/21, EMR REVIEWED, PT ADMITTED S/P L TKA, CM MET W/PT WHO IS A&OX4, PT REPORTS HE LIVES W/HIS [employer]AH[employer] BRADY [phone], PT REPORTS HE HAS A CANE/WALKER, GRAB BARS IN BR AND DOUBLE HANDRAILS COMING INTO HOUSE, PT HAS NO HOME SERVICES AND WOULD LIKE TO RETURN HOME W/SERVICES, PT DID REPORT HE DIDN'T FEEL READY FOR D/C TODAY D/T PAIN MANAGEMENT AND CM DID CONTACT ORTHO PA WHO OKAYED PT TO STAY TONIGHTH. PT VERIFIES PCP AND COMPLETED A HCP W/THIS CM NAMING HIS SHAHLA BRADY HIS HEALTH CARE AGENT AND NO ALTERNATE, PT PROVIDED W/EDUCATIONAL INFO, ORIGINAL AND 2 COPIES, COPY UPLOADED TO [employer] AND PLACED IN CHART. D/C PLAN: HOME 03/30 W/[facility] FOR HOME PT, PT'S TO TRANSPORT
--- NOTE | 2021-03-30 16:13 | P.CONHOSP_ITS ---
History of Present Illness Data of Consult Service Date: 03/30/21 Primary Care Provider: Rahul Zhou, [facility]- HPI 65 year male relatively health with history of PE in Juy[place] 2020 and had been on Xarelto, SHAUN, restless leg syndrome. He underwent Left knee replacement d/t debilitating OA. He is doing post of and has no complaint at moment. Review of Systems Review of Systems: Gen: no fever Resp: no sob, no cough CV: no chest, no RAMIREZ, no leg edema GI: No n/v, no abd pain Neuro: No confusion Yes all other systems are reviewed and are negative [facility], [facility] Medical History On anticoagulant therapy Pulmonary emboli Restless leg syndrome Sinus bradycardia Sleep apnea Family History Father History of CVA (cerebrovascular accident) Diabetes mellitus Mother Diabetes mellitus Surgical History History of umbilical hernia repair Hx of colonoscopy Social History Housing: House Are you a primary childcare administrator to a significant other at home: No Do you presently have visiting nurse or other home services: No Alcohol intake: current Alcohol intake frequency: a few times a month Patient Tobacco Use Status: Never used Tobacco e-Cigarette/Vaping Use: Never Used Second Hand Smoke Exposure: No service: No Current occupational status: retired Current occupation: right handed Meds Allergies Allergy/AdvReac Type Severity Reaction Status Date / Time No Known Allergies Allergy Verified 03/23/21 12:44 [No Known Allergies*] Active Medications: Current Medications Acetaminophen (Acetaminophen 325 Mg Tablet) 650 mg PO Q6H PRN PRN Reason: Pain, Mild (Pain Scale 1-3) Last Admin: 03/30/21 09:48 Dose: 650 mg Documented by: Celecoxib (Celecoxib 200 Mg Capsule) 200 mg PO BID [facility] Last Admin: 03/30/21 09:48 Dose: 200 mg Documented by: Docusate Sodium (Docusate Sodium 100 Mg Capsule) 100 mg PO BID [facility] Last Admin: 03/30/21 09:48 Dose: 100 mg Documented by: Hydromorphone HCl (Hydromorphone Hcl 1 Mg/Ml Syringe) 0.25 mg IVPUSH Q4H PRN; Protocol PRN Reason: Pain, Severe (Pain Scale 7-10) Last Admin: 03/29/21 19:32 Dose: 0.25 mg Documented by: Lactated Ringer's (Lr) 1,000 mls @ 100 mls/hr IVCONT .Q10H [facility] Last Infusion: 03/29/21 11:49 Dose: Infused Documented by: Dextrose/Sodium Chloride (D51/2ns) 1,000 mls @ 80 mls/hr IVCONT .[id number] [facility] Last Admin: 03/30/21 11:25 Dose: 80 mls/hr Documented by: Ondansetron HCl (Ondansetron Hcl 4 Mg/2 Ml Vial) 4 mg IVPUSH ONCE PRN PRN Reason: Nausea and Vomiting Ondansetron HCl (Ondansetron Hcl 4 Mg/2 Ml Vial) 4 mg IVPUSH Q8H PRN PRN Reason: Nausea and Vomiting Oxycodone HCl (Oxycodone Hcl Er 10 Mg Tab.Er.12h) 10 mg PO BID [facility] Last Admin: 03/30/21 09:17 Dose: 10 mg Documented by: Oxycodone HCl (Oxycodone Hcl Immed Release 5 Mg Tablet) 10 mg PO Q4H PRN PRN Reason: Pain, Moderate (Pain Scale 4-6 Last Admin: 03/30/21 13:59 Dose: 10 mg Documented by: Ropinirole HCl (Ropinirole Hcl 2 Mg Tablet) 4 mg PO BEDTIME [facility] Ropinirole HCl (Ropinirole Hcl 1 Mg Tablet) 1 mg PO BEDTIME [facility] Sodium Chloride (0.9 % Sodium Chloride Flush 3 Ml Syringe) 3 ml IVFLUSH QSHIFT [facility] Last Admin: 03/30/21 00:18 Dose: Not Given Documented by: Home Medications Medication Instructions Recorded Confirmed Last Taken Type ferrous gluconate 324 mg (38 mg 324 mg PO Q48H 03/01/21 03/30/21 Unknown History iron) tablet ropinirole 5 mg tablet 1 tab PO DAILY@199903/30/21 03/30/21 Unknown History Physical Exam Vital Signs and Narrative: Vital Signs: Last Vital Signs Temp 97.4 F 03/30/21 15:34 Pulse 60 03/30/21 15:34 Resp 16 03/30/21 15:34 BP 123/66 03/30/21 15:34 Pulse Ox 95 03/30/21 15:34 BMI result Body Mass Index 36.6 Const: Other: Constitutional: Alert, in no distress, overweight. Mental Status: Oriented to person, place and time. Respiratory: Clear to auscultation. No wheezing, rales or rhonchi. Cardiovascular: S1 S2 regular. No murmurs, rubs or gallops. Gastrointestinal: Abdomen soft, non-tender, non-distended. Normal bowel sounds.? Neurologic: Cranial nerves II-XII grossly intact. No focal neurological deficits. Moves all extremities spontaneously.? Skin: No rashes or lesions.? Musculoskeletal: No cyanosis or clubbing. Psychiatric: Normal mood and affect? Results Labs CBC and Chem 7: 03/30/21 04:14 03/30/21 04:14 Labs: Laboratory Results - last 24 hr 03/30/21 03/30/21 04:14 04:14 MCV 91.0 MCH 29.9 MCHC 32.8 RDW 12.9 Plt Count 165 MPV 9.9 Immature Gran % (Auto) 0.4 Neut % (Auto) 67.4 Lymph % (Auto) 15.0 L Frederick % (Auto) 16.3 H Eos % (Auto) 0.8 Baso % (Auto) 0.1 Lymph # (Auto) 1.3 Frederick # (Auto) 1.4 H Eos # (Auto) 0.1 Baso # (Auto) 0.0 Abs Immat Gran (auto) 0.03 Absolute Neuts (auto) 5.7 Absolute Nucleated RBC 0.000 Nucleated RBC % (auto) 0.0 Anion Gap 11 L Estim Creat Clear Calc 119.9 Estimated GFR > 60 Fasting Glucose 131 H Calcium 8.3 L D Assessment and Plan (1) Pulmonary embolism: Status: Acute (2) Restless leg: Status: Acute (3) Status post total left knee replacement: Status: Acute 65/ s/p Left TKR doing well, no acute medical issues. Rec: continue ongoing care, should be on apropriate DVT prophylaxis, preferably back on Xarelto. Continue all ohter prior meds. Will sing off at this time.
[2021-03-30] MEDS: rOPINIRole HCL 2 MG TABLET 4 MG PO (20:23)
[2021-03-30] MEDS: rOPINIRole HCL 1 MG TABLET PO (20:24)
[2021-03-31] MEDS: Dextrose 5 % and 0.45 % NaCl 1,000 ML 80 ML IVCONT (00:09)
[2021-03-31] MEDS: 0.9 % Sodium Chloride Flush 3 ML SYRINGE IVFLUSH (00:10)
[2021-03-31 03:22] VITALS: BP 141/58; PULSE 66; RESP 18; TEMP 36.4; O2SAT 94
[2021-03-31 05:42] LABS: MANUAL DIFF FLAG NO
[2021-03-31 05:50] LABS: Basophils Percent Auto 0.4 % (0-2); Eosinophils Absolute Auto 0.3 X10*3/uL (0.0-0.4); Eosinophils Percent Auto 4.2 % (0-4); Hematocrit 33.8 % (42.0-52.0); Hemoglobin 10.8 g/dl (14.0-18.0); Imm Gran Abs Auto 0.03 X10*3/uL (0.00-0.03); Imm Gran Pct Auto 0.4 % (0.0-0.4); Lymphocytes Absolute Auto 1.5 X10*3/uL (1.2-4.9); Lymphocytes Percent Auto 18.1 % (20-40); Mean Corpuscular Hemoglobin 29.3 pg (27.0-33.0); Mean Corpuscular Volume 91.8 fL (80.0-98.0); Mean Platelet Volume 10.2 fL (9.4-12.4); Monocytes Absolute Auto 1.4 X10*3/uL (0.1-1.2); Monocytes Percent Auto 16.7 % (2-11); Neutrophils Absolute Auto 4.9 x10*3/uL (2.0-8.3); Neutrophils Percent Auto 60.2 % (45-73); Platelet Count 162 X10*3/uL (160-400); Red Blood Count 3.68 X10*6/uL (4.60-5.80); White Blood Count 8.1 X10*3/uL (4.8-10.8)
[2021-03-31 06:15] LABS: Anion Gap 9 (12-20); Blood Urea Nitrogen 15 mg/dL (9-16); Calcium 8.4 mg/dL (8.4-10.2); Carbon Dioxide 30 mmol/L (22-29); Chloride 103 mmol/L (96-108); Creatinine Clr Calc Pharmacy 129.2; Estimated Glomerular Filt Rate > 60; Glucose Fasting 115 mg/dL (60-99); Potassium 4.2 mmol/L (3.3-5.1); Sodium 138 mmol/L (135-145)
[2021-03-31 07:05] VITALS: BP 132/76; PULSE 61; RESP 18; TEMP 36.4; O2SAT 97
[2021-03-31] MEDS: oxyCODONE HCl ER 10 MG TAB.ER.12H PO (07:16)
[2021-03-31] MEDS: Acetaminophen 325 MG TABLET 650 MG PO (07:16)
[2021-03-31] MEDS: oxyCODONE HCl Immed Release 5 MG TABLET 10 MG PO ×2 (07:16→11:31)
[2021-03-31] MEDS: Celecoxib 200 MG CAPSULE PO (07:16)
[2021-03-31] MEDS: Docusate Sodium 100 MG CAPSULE PO (07:17)
--- NOTE | 2021-03-31 07:51 | P.PNOP_ITS ---
Subjective Subjective Date of Service: 03/31/21 Interval history: POD2 status post left total knee arthroplasty. Patient is resting comfortably in bed. No overnight events. Denies any chest pain, abdominal pain, shortness of breath. Pain is well managed. Physical Exam Vital Signs: Vital Signs: Last Vital Signs Temp 97.6 F 03/31/21 07:05 Pulse 61 03/31/21 07:05 Resp 18 03/31/21 07:05 BP 132/76 03/31/21 07:05 Pulse Ox 97 03/31/21 07:05 BMI result Body Mass Index 36.6 Const: General: cooperative, healthy appearing and no acute distress Resp: Effort & Inspection: normal respiratory effort and able to speak in complete sentences Cardio: Rate: regular rate Peripheral pulses: Peripheral pulses 2+ throughout GI: Palpation (GI): Soft to palpation Skin: Lesions: no lesions Rashes: no rashes Extrem: Other: Left knee Aquacel dressing is clean dry and intact. Sensation intact. Patient is able to dorsiflex and plantar flex. Pulse intact Procedures Date of Service Date of Service: 03/31/21 Progress Note: A&P Assessment and plan (1) Status post total left knee replacement: Status: Acute Assessment and Plan: Continue pain mgmnt continue Xeralto for dvt ppx, increase dose today to 10mg. Dosing 04/01/21 will be 10mg, resume regular dose of 20mg 04/02/21 [place] PT for LTKA Dispo planning- PT, pain mgmnt Fall Risk Details Current Medications: Current Medications Acetaminophen (Acetaminophen 325 Mg Tablet) 650 mg PO Q6H PRN PRN Reason: Pain, Mild (Pain Scale 1-3) Last Admin: 03/31/21 07:16 Dose: 650 mg Documented by: Celecoxib (Celecoxib 200 Mg Capsule) 200 mg PO BID [facility] Last Admin: 03/31/21 07:16 Dose: 200 mg Documented by: Docusate Sodium (Docusate Sodium 100 Mg Capsule) 100 mg PO BID [facility] Last Admin: 03/31/21 07:17 Dose: 100 mg Documented by: Hydromorphone HCl (Hydromorphone Hcl 1 Mg/Ml Syringe) 0.25 mg IVPUSH Q4H PRN; Protocol PRN Reason: Pain, Severe (Pain Scale 7-10) Last Admin: 03/29/21 19:32 Dose: 0.25 mg Documented by: Lactated Ringer's (Lr) 1,000 mls @ 100 mls/hr IVCONT .Q10H [facility] Last Admin: 03/31/21 07:16 Dose: Not Given Documented by: Dextrose/Sodium Chloride (D51/2ns) 1,000 mls @ 80 mls/hr IVCONT .[id number] [facility] Last Admin: 03/31/21 00:09 Dose: 80 mls/hr Documented by: Ondansetron HCl (Ondansetron Hcl 4 Mg/2 Ml Vial) 4 mg IVPUSH ONCE PRN PRN Reason: Nausea and Vomiting Ondansetron HCl (Ondansetron Hcl 4 Mg/2 Ml Vial) 4 mg IVPUSH Q8H PRN PRN Reason: Nausea and Vomiting Oxycodone HCl (Oxycodone Hcl Er 10 Mg Tab.Er.12h) 10 mg PO BID [facility] Last Admin: 03/31/21 07:16 Dose: 10 mg Documented by: Oxycodone HCl (Oxycodone Hcl Immed Release 5 Mg Tablet) 10 mg PO Q4H PRN PRN Reason: Pain, Moderate (Pain Scale 4-6 Last Admin: 03/31/21 07:16 Dose: 10 mg Documented by: Ropinirole HCl (Ropinirole Hcl 2 Mg Tablet) 4 mg PO BEDTIME [facility] Last Admin: 03/30/21 20:23 Dose: 4 mg Documented by: Ropinirole HCl (Ropinirole Hcl 1 Mg Tablet) 1 mg PO BEDTIME [facility] Last Admin: 03/30/21 20:24 Dose: 1 mg Documented by: Sodium Chloride (0.9 % Sodium Chloride Flush 3 Ml Syringe) 3 ml IVFLUSH QSHIFT [facility] Last Admin: 03/31/21 07:15 Dose: Not Given Documented by: Time Spent With Patient Time: Total time spent is greater than 50% in coordination of care (as documented) at patient's floor/unit and/or counseling patient: Time with patient: less than 15 minutes Quality Stroke Does the patient have a stroke diagnosis?: No VTE Prior VTE?: No VTE Risk Level:: Surgical - very high VTE Device Contraindication: N/A - Device Ordered VTE Drug Contraindication: N/A - Med Ordered
[2021-03-31 08:00] VITALS: O2SAT 97
[2021-03-31 09:10] VITALS: O2SAT 97
[2021-03-31 11:12] VITALS: BP 142/65; PULSE 59; RESP 17; TEMP 36.7; O2SAT 96
[2021-03-31] MEDS: Rivaroxaban 10 MG TABLET PO (11:39)
--- NOTE | 2021-03-31 12:19 | W.MHC.F2F ---
Service Date Service Date: 03/31/21 Encounter Date of encounter: 03/31/21 Reasons for Services Signs and symptoms assessed: pain, weakness, diff with balance, unable to drive. Reason for physical therapy: home safety and mobility, therapeutic exercises, restore joint function, gait/transfer training, ADL training and energy conservation Reason for occupational therapy: home safety and mobility, therapeutic exercises, restore joint function, gait/transfer training, ADL training and energy conservation MD Overseeing Care: Doug Lane Homebound: Leaving the home is medically contraindicated at this time without the asist of a device and/or another person due th the listed conditions above and below. Reason homebound: unsteady gait / fall risk, pain with ambulation, pain with transfers, poor balance / fall risk and unable to drive Homebound supporting statement: Pt. is considered home bound due to recent surgery. Unable to drive, poor balance, poor gait mechanics. Certification: Based on the above findings, I certify that this patient is confined to the home and needs intermittent [facility] care, physical therapy and/or speech therapy, or continues to need occupational therapy. The patient is under my care, and I have initiated the establishment of the plan of care. The patient will be followed by a physician who will periodically review the plan of care.
== END 2021-03-31 12:22 | disposition home health service (06) | DRG 470 ==
LOC: HO.SSSA 06:24 → HO.S3 21:29 → HO.SSSA 21:38 → HO.S3 03-30 09:26
PROVIDERS: Physician Assistant; Admitting Provider Orthopaedic Surgery; PCP Nurse Practitioner Family; Visit Provider Orthopaedic Surgery
PROC: 0SRD0JA Replacement of Left Knee Joint with Synthetic Substitute, Uncemented, Open Approach (ICD-10-PCS; CPT 27447; principal; 2021-03-29 07:30)
DX: M17.12 Unilateral primary osteoarthritis, left knee (principal); G47.33 Obstructive sleep apnea (adult) (pediatric); G25.81 Restless legs syndrome; Z20.822 Contact with and (suspected) exposure to COVID-19; Z79.01 Long term (current) use of anticoagulants; Z86.711 Personal history of pulmonary embolism; Z79.899 Other long term (current) drug therapy
CPT/HCPCS: 27447; 36415; 73560; 80048; 85025; 86850; 86900; 86901; 87635; 87640; 87641; 88305; 88311; 97110; 97116; 97161; 97165; 97530; 97535; C1776; J0131; J0690; J1170; J2250; J2370; J3010

== ENCOUNTER → 2021-04-13 12:29 | Outpatient (BNVA) | payer MEDICARE, BC, SELFPAY | PROVIDERS: PCP Nurse Practitioner Family; Visit Provider Physician Assistant | DX: Z47.1 Aftercare following joint replacement surgery (principal); Z96.652 Presence of left artificial knee joint | CPT/HCPCS: 99212 ==

== ENCOUNTER → 2021-05-08 11:22 | Outpatient (BNVA) | payer MEDICARE, BC, SELFPAY | PROVIDERS: PCP Nurse Practitioner Family; Visit Provider Physician Assistant | DX: Z47.1 Aftercare following joint replacement surgery (principal); Z96.652 Presence of left artificial knee joint | CPT/HCPCS: 99212 ==

== ENCOUNTER → 2021-05-17 14:27 | Outpatient (BNVA) | payer MEDICARE, BC, SELFPAY | PROVIDERS: PCP Nurse Practitioner Family; Visit Provider Physician Assistant | DX: Z47.1 Aftercare following joint replacement surgery (principal); Z96.652 Presence of left artificial knee joint | CPT/HCPCS: 99212 ==

== ENCOUNTER 2021-06-09 08:00 | Outpatient (RCR) | payer MEDICARE, BC, SELFPAY ==
--- NOTE | 2021-03-31 12:58 | W.MHC.F2F ---
Service Date Service Date: 03/31/21 Encounter Date of encounter: 03/31/21 Reasons for Services Signs and symptoms assessed: Pt. is considered homebound due to recent surgery. Unable to drive, poor balance, poor gait mechanics. Reason for physical therapy: home safety and mobility, therapeutic exercises, restore joint function, gait/transfer training, assess need for DME and ADL training Reason for occupational therapy: home safety and mobility, therapeutic exercises, restore joint function, gait/transfer training, assess need for DME and ADL training Homebound: Leaving the home is medically contraindicated at this time without the asist of a device and/or another person due th the listed conditions above and below. Reason homebound: unsteady gait / fall risk, pain with ambulation, pain with transfers, poor balance / fall risk and unable to drive Homebound supporting statement: Pt. is considered homebound due to recent surgery. Unable to drive, poor balance, poor gait mechanics. Certification: Based on the above findings, I certify that this patient is confined to the home and needs intermittent senior living care, physical therapy and/or speech therapy, or continues to need occupational therapy. The patient is under my care, and I have initiated the establishment of the plan of care. The patient will be followed by a physician who will periodically review the plan of care.
--- NOTE | 2021-04-13 15:18 | MHC.PT.EP ---
[facility] [place] Office [place] [facility] [place] Office [address] Shirley Gracia [address] [phone] F: [phone] F: [phone] F: [phone] F: [phone] Physical Therapy Plan of Care Date of Evaluation: Date of Surgery: 03/29/21 Diagnosis: LEFT TKA 03/29/21 Assessment: 65 YO MALE REF TO PT S/P LEFT TKR 03/30/21- HE IS CURRENTLY AMB W A W/WALKER AND RESIDES IN A SPLIT LEVEL HOME W HIS . HE IS CURRENTLY ON XARELTO. OBJECTIVE FINDINGS INCLUDE POST OP LEFT KNEE ROM DEFICITS, RESIDUAL SWELLING IN LEFT KNEE AND ANKLE; DECR FLEXIB IN PSOAS AND ANKLE, HEALING INCISION LEFT KNEE, DECR STRENGTH IN GLUTES AND QUADS, AND GENERAL PAIN IN LEFT KNEE. FUNCTIONALLY, Pt IS LIMITED W GAIT DURATION, HIGHER LEVEL ADLs, STAIR MGMT, INCR STANDING. Pt WOULD BENEFIT FROM PT TO ADDRESS THE ABOVE POST-OP FINDINGS AND DEV A HEP/ SELF-SX MGMT STRATEGIES TO ASSIST IN OBTAINING MAXIMAL FUNCTIONAL INDEPENDENCE. Frequency and Duration: The patient will be seen 2 X WK x 5 WKS Short Term Goals: Pt DEMON PROPER LEFT QUAD SET AND REDUCED SWELLING IN Lt KNEE AND ANKLE IN 1 WK Pt'S LEFT KNEE PAIN DECREASED TO 2-3/10 IN 2 WKS Pt DEMON WFL AROM HIP EXT AND ANKLE DF/PF AND AROM LEFT KNEE 0* TO 120* IN 3 WKS Pt DEMO IMPROVED GAIT MECH W LEAST REST AD ON LEVEL GROUND AND STAIRS IN 2 WKS Agency Sales Director Goals: Pt INDEP W HEP PROGRESSION AND SELF-SX MGMT STRATEGIES IN 5 WKS Pt RESUME REG ADLs EVIDENT W IMPROVED LEFI SCORE BY 8-10 POINTS IN 5 WKS Pt INCR LEFT LE STRENGTH BY 1 GRADE IN 5 WKS Treatment Plan: Modalities to reduce pain, spasms and effusion. Manual therapy to restore motion and function. Therapeutic exercise to improve strength and flexibility. Neuromuscular re-education for posture and balance. Therapeutic activities to return to functional activities of daily living. Electronically signed by: Ivana Casper,PT Please sign and return to therapist. Thank you for your referral.
== END 2021-09-22 14:35 | disposition home or self-care (01) ==
LOC: HO.PTWFD 08:00
PROVIDERS: Visit Provider Physician Assistant
DX: Z96.652 Presence of left artificial knee joint (principal)
CPT/HCPCS: 97014; 97110; 97140; 97161; 97530; 97535

== ENCOUNTER 2021-06-12 08:28 | Outpatient (REF) | payer MEDICARE, BC, SELFPAY ==
--- NOTE | ~2021-06-12 | XR_ITS ---
EXAMINATION: KNEE X-RAY CLINICAL INFORMATION: Pain COMPARISON: Previous x-ray most recent March 2021 TECHNIQUE: Standing AP view of both knees and lateral and sunrise view of the left knee FINDINGS: Left: There is a 3 component left knee replacement in satisfactory position. No fracture or dislocation is seen. There is a joint effusion. There is soft tissue swelling over the anterior knee. Standing AP view of the right knee is demonstrates mild medial femoral tibial joint space narrowing and soft tissue varicosities. XR/XR knee LT 2V IMPRESSION: Left knee: Satisfactory appearance of left knee replacement. Joint effusion and anterior soft tissue swelling.
--- NOTE | ~2021-06-12 | XR_ITS ---
EXAMINATION: KNEE X-RAY CLINICAL INFORMATION: Pain COMPARISON: Previous x-ray most recent March 2021 TECHNIQUE: Standing AP view of both knees and lateral and sunrise view of the left knee FINDINGS: Left: There is a 3 component left knee replacement in satisfactory position. No fracture or dislocation is seen. There is a joint effusion. There is soft tissue swelling over the anterior knee. Standing AP view of the right knee is demonstrates mild medial femoral tibial joint space narrowing and soft tissue varicosities. XR/XR knee standing BI IMPRESSION: Left knee: Satisfactory appearance of left knee replacement. Joint effusion and anterior soft tissue swelling.
== END 2021-06-12 08:29 | disposition home or self-care (01) ==
LOC: HO.HOSX 08:28
PROVIDERS: Visit Provider Orthopaedic Surgery
DX: M25.562 Pain in left knee (principal); M25.462 Effusion, left knee; G25.81 Restless legs syndrome; I26.99 Other pulmonary embolism without acute cor pulmonale; Z96.652 Presence of left artificial knee joint; Z79.01 Long term (current) use of anticoagulants
CPT/HCPCS: 73560; 73565; 99212

== ENCOUNTER 2021-11-24 14:41 | Outpatient (REF) | payer MEDICARE, BC, SELFPAY | END 2021-11-24 14:42 | disposition home or self-care (01) | LOC: HO.HOSX 14:41 | PROVIDERS: Visit Provider Orthopaedic Surgery | DX: Z13.89 Encounter for screening for other disorder (principal) ==

== ENCOUNTER 2021-11-27 | Outpatient (REF) | payer MEDICARE, BC, SELFPAY ==
--- NOTE | ~2021-11-27 | XR_ITS ---
EXAMINATION: XR BOTH KNEES AP STANDING XR RIGHT KNEE, 2 VIEWS CLINICAL INFORMATION: Reason for Exam M25.569 - Pain in unspecified knee. COMPARISON: 06/12/2021 TECHNIQUE: Standing AP view of both knees and lateral and sunrise views of the right knee. FINDINGS: LEFT KNEE: Prosthetic components of the left total knee arthroplasty are appropriately aligned without periprosthetic fracture or abnormal lucency. No component migration. No joint effusion. RIGHT KNEE: Mild medial compartment joint space narrowing. Small patellar osteophytes. Trace joint effusion. Enthesopathic spurring is present at the quadriceps tendon insertion and patellar tendon origin. Dystrophic calcifications are noted in the proximal calf. Prominent varicose veins. XR/XR knee RT 2V IMPRESSION: 1. Unchanged left total knee arthroplasty without evidence of hardware complication. 2. Mild right knee medial compartment and patellofemoral compartment osteoarthritis, unchanged.
--- NOTE | ~2021-11-27 | XR_ITS ---
EXAMINATION: XR BOTH KNEES AP STANDING XR RIGHT KNEE, 2 VIEWS CLINICAL INFORMATION: Reason for Exam M25.569 - Pain in unspecified knee. COMPARISON: 06/12/2021 TECHNIQUE: Standing AP view of both knees and lateral and sunrise views of the right knee. FINDINGS: LEFT KNEE: Prosthetic components of the left total knee arthroplasty are appropriately aligned without periprosthetic fracture or abnormal lucency. No component migration. No joint effusion. RIGHT KNEE: Mild medial compartment joint space narrowing. Small patellar osteophytes. Trace joint effusion. Enthesopathic spurring is present at the quadriceps tendon insertion and patellar tendon origin. Dystrophic calcifications are noted in the proximal calf. Prominent varicose veins. XR/XR knee standing BI IMPRESSION: 1. Unchanged left total knee arthroplasty without evidence of hardware complication. 2. Mild right knee medial compartment and patellofemoral compartment osteoarthritis, unchanged.
== END 2021-11-27 00:01 | disposition home or self-care (01) ==
LOC: HO.HOSX
PROVIDERS: Visit Provider Orthopaedic Surgery
DX: M17.11 Unilateral primary osteoarthritis, right knee (principal); M79.89 Other specified soft tissue disorders; Z96.652 Presence of left artificial knee joint
CPT/HCPCS: 20610; 73560; 73565; 99212; J1100

== ENCOUNTER 2021-11-27 16:26 | Outpatient (REF) | payer MEDICARE, BC, SELFPAY ==
--- NOTE | ~2021-11-27 | US_ITS ---
EXAMINATION: US VENOUS ULTRASOUND WITH DOPPLER LOWER EXTREMITY, RIGHT CLINICAL INFORMATION: Swelling of the right lower extremity COMPARISON: Right venous duplex on 09/17/2016 TECHNIQUE: Ultrasound of the deep veins is performed from the hip to the calf with compression sonography and color and pulse Doppler assessment. Spectral analysis with color-flow imaging is performed. FINDINGS: There is normal venous compression and respiratory variation and augmented flow. The visualized common femoral vein, superficial femoral vein, profunda femoral vein, popliteal vein, and the trifurcation region shows no evidence of deep venous thrombosis. There is a 5.1 x 2.3 x 3.4 cm complex fluid collection in the popliteal fossa. If the patient's symptoms persist, followup ultrasound in 5 days 7 days might be of value to exclude proximal propagation from a non-visualized calf vein. US/US venous duplex LE RT IMPRESSION: No DVT demonstrated in the right lower extremity. Right Kimball's cyst.
== END 2021-11-27 16:27 | disposition home or self-care (01) ==
LOC: HO.US 16:26
PROVIDERS: PCP Nurse Practitioner Family; Visit Provider Orthopaedic Surgery
DX: M17.11 Unilateral primary osteoarthritis, right knee (principal); M79.89 Other specified soft tissue disorders
CPT/HCPCS: 93971

== ENCOUNTER → 2022-04-03 15:32 | Outpatient (BNVA) | payer MEDICARE, BC, SELFPAY | PROVIDERS: PCP Nurse Practitioner Family; Visit Provider Surgery Vascular Surgery | DX: I83.11 Varicose veins of right lower extremity with inflammation (principal) | CPT/HCPCS: 99202 ==

== ENCOUNTER 2022-04-20 12:47 | Outpatient (REF) | payer MEDICARE, BC, SELFPAY ==
--- NOTE | ~2022-04-20 | US_ITS ---
EXAMINATION: US VENOUS REFLUX/INSUFFICIENCY CLINICAL INFORMATION: Varicose veins of right lower extremity. Right GSV stripping. COMPARISON: Ultrasound 11/27/2021 TECHNIQUE: Bilateral lower extremity venous insufficiency ultrasound was performed with velocity measurements. Color flow Doppler imaging was performed. FINDINGS: RIGHT SIDE: No evidence of DVT within the common femoral, mid femoral, or popliteal vein. There is venous reflux within the common femoral vein and midportion of the femoral vein with reflux time of greater than 2000 ms. GREATER SAPHENOUS VEIN: The right saphenofemoral junction measures 2.4cm. The reflux time is greater than 2100 ms. Overall great saphenous vein is not well visualized likely relating to recent vein stripping procedure. At the level of the ankle it measures0.6cm and is thrombosed. SMALL SAPHENOUS VEIN: The upper right small saphenous vein measures 0.4 cm. Reflux time is 0ms. The lower small saphenous vein measures 0.6cm. Reflux time is 0ms. There are 2 perforators at the mid calf measures 0.3 and 0.5 cm. Neither of these demonstrate reflux. There are multiple right lower extremity varicosities. Many of these varicosities contain a combination of acute and chronic thrombus compatible with thrombophlebitis A varicosity at the saphenofemoral junction measures 1.4 cm and is reflux time greater than 1980 ms. A varicosity the proximal thigh measures 1.6 cm and has a reflux time greater than 2470 ms. A varicosity at the mid thigh measures 0.4 cm and has reflux time greater than 2556 ms, a varicosity at the knee measures 1 cm and is reflux time greater than 2504 ms. A varicosity at the proximal calf measures 0.6 cm and has refluxed time 2468 ms. A varicosity at the mid calf measures 0.6 cm and is reflux time 2740 ms. A second mid calf varicosity measures 0.7 cm and has a reflux time is 632 ms. LEFT SIDE: No evidence of DVT or venous reflux within the common femoral, mid femoral, or popliteal vein. GREATER SAPHENOUS VEIN: The left saphenofemoral junction measures 1cm. The reflux time is 1578 ms. Proximal thigh measures 0.5cm. Reflux time is 1272ms. Mid thigh measures 0.3cm. Reflux time is 0ms. Above-knee measures 0.4cm. Reflux time is greater than 2036ms. At the knee measures 0.4cm. Reflux time is greater than 2544ms. Below the knee measures 0.2cm. Reflux time is 0ms. Mid calf measures 0.2cm. Reflux time is 0ms. At the level of the ankle it measures0.3cm. Reflux time is 0ms. There is a medial accessory vein which measures 0.6 cm at the saphenofemoral junction and does not demonstrate reflux. At the mid thigh this measures 0.3 cm and does not demonstrate reflux. SMALL SAPHENOUS VEIN: The upper left small saphenous vein measures 0.5 cm. Reflux time is greater than 2520ms. The lower small saphenous vein measures 0.3cm. Reflux time is 0ms. There is a geophysical manager vein at the mid thigh which measures 0.1 cm and does not demonstrate reflux. At the proximal calf there is a 0.2 cm geophysical manager with reflux time 2720 ms which is located 36 cm from the calcaneus. There are several left lower extremity varicosities identified. There is a 0.3 cm varicosity associated with the distal small saphenous vein does not demonstrate reflux. A 0.3 cm varicosity at the mid thigh does not demonstrate reflux and at the proximal calf there is a 0.6 cm varicosity with reflux time greater than 2768 ms. US/US venous duplex LE BI IMPRESSION: There are changes relating to stripping of the great saphenous vein on the right. The saphenofemoral junction measures 2.4 cm and demonstrates significant reflux. There are multiple right lower extremity varicosities which demonstrate reflux as well as thrombophlebitis. There is reflux within the common femoral and mid femoral vein as well. On the left there is venous reflux within the great saphenous vein at the saphenofemoral junction, proximal thigh and about the knee. There is reflux within the upper small saphenous vein at the saphenofemoral popliteal junction. There is a 2 mm geophysical manager at the proximal calf which demonstrates reflux and there are several left lower extremity varicosities. Of note a proximal calf varicosity measures 6 mm and has refluxed time 2768 ms.
== END 2022-04-20 12:48 | disposition home or self-care (01) ==
LOC: HO.US 12:47
PROVIDERS: PCP Nurse Practitioner Family; Visit Provider Surgery Vascular Surgery
DX: I83.893 Varicose veins of bilateral lower extremities with other complications (principal)
CPT/HCPCS: 93970

== ENCOUNTER 2022-05-31 15:33 | Outpatient (REF) | payer MEDICARE, BC, SELFPAY ==
--- NOTE | ~2022-05-31 | US_ITS ---
EXAMINATION: US ABDOMEN LIMITED CLINICAL INFORMATION: Palpable lump. COMPARISON: None available. TECHNIQUE: Sonographic evaluation of the soft tissues of the right back was performed. FINDINGS: A 5.1 x 2.8 x 0.9 cm circumscribed lesion corresponding to the area of palpable concern in the left back without internal vascularity isoechoic to the adjacent fat. US/US abdomen limited IMPRESSION: A 5.1 cm circumscribed lesion corresponding to the area of palpable concern in the left back without internal vascularity isoechoic to the adjacent fat, favored to reflect a lipomatous lesion. Recommend correlation with physical exam.
== END 2022-05-31 15:34 | disposition home or self-care (01) ==
LOC: HO.US 15:33
PROVIDERS: PCP Nurse Practitioner Family; Visit Provider Internal Medicine
DX: R22.2 Localized swelling, mass and lump, trunk (principal)
CPT/HCPCS: 76705

== ENCOUNTER → 2022-06-05 13:19 | Outpatient (BNVA) | payer MEDICARE, BC, SELFPAY | PROVIDERS: PCP Nurse Practitioner Family; Visit Provider Surgery Vascular Surgery | DX: I83.11 Varicose veins of right lower extremity with inflammation (principal) | CPT/HCPCS: 99212 ==

== ENCOUNTER → 2022-07-13 08:27 | Outpatient (BNVA) | payer MEDICARE, BC, SELFPAY | PROVIDERS: PCP Nurse Practitioner Family; Visit Provider Surgery Vascular Surgery | DX: I83.11 Varicose veins of right lower extremity with inflammation (principal) | CPT/HCPCS: 36475 ==

== ENCOUNTER 2022-07-16 10:43 | Outpatient (REF) | payer MEDICARE, BC, SELFPAY ==
--- NOTE | ~2022-07-16 | US_ITS ---
EXAMINATION: TRIPLEX SCANNING OF RIGHT LOWER EXTREMITY; SUPERFICIAL ULTRASOUND WITH DOPPLER OF RIGHT LOWER EXTREMITY CLINICAL INFORMATION: Status post RF ablation of the right great saphenous vein. Originally performed on 07/13/2022. COMPARISON: Ultrasound from 11/27/2021. TECHNIQUE: Color flow triplex imaging and compression Doppler were performed as well as superficial ultrasound with Doppler. FINDINGS: TRIPLEX SCANNING OF RIGHT LOWER EXTREMITY: Respiratory variation, normal compression and augmented flow are noted throughout the lower extremity. The visualized common femoral vein, femoral vein, profunda femoral vein, popliteal vein and the calf veins show no evidence of deep venous thrombosis. There is no evidence of Kimball's cyst. SUPERFICIAL ULTRASOUND WITH DOPPLER OF RIGHT LOWER EXTREMITY: The right great saphenous vein is occluded from the access site to just 0.3 cm before the sapheno-femoral junction. There is no extension of thrombus into the deep system. US/US venous duplex LE RT IMPRESSION: 1. Normal triplex scan of the right without evidence of deep venous thrombosis. 2. Excellent appearance status post ablation of the right great saphenous vein. Thrombus from the great saphenous vein is just 0.3 cm from the saphenofemoral junction
== END 2022-07-16 10:44 | disposition home or self-care (01) ==
LOC: HO.US 10:43
PROVIDERS: PCP Nurse Practitioner Family; Visit Provider Surgery Vascular Surgery
DX: M79.604 Pain in right leg (principal)
CPT/HCPCS: 93971

== ENCOUNTER 2022-08-22 11:54 | Day surgery (SDC) | payer MEDICARE, BC, SELFPAY ==
--- NOTE | 2022-08-21 12:16 | HO.ANESPROP2 ---
Documented by User: Tawnya Yañez NP 08/21/22 12:17 HPI - Anesthesia Eval Consult details Narrative: 66yo M for Colonoscopy Xarelto for hx of PE - off for a couple months. Heme aware. OK to use xarelto for prn travel. PMFSH Active Problems Active Problems: All Active Problems (Updated 08/20/22 @ 09:[address] MD) RLS (restless legs syndrome) (Acute) Varicose veins of right lower extremity with inflammation (Acute) Lump of skin of back (Acute) Folliculitis (Acute) Osteoarthritis of right knee (Acute) Knee pain (Acute) Osteoarthritis of left knee (Acute) Pre-op evaluation (Acute) Status post total left knee replacement (Acute) Past Medical History Medical History On anticoagulant therapy Pulmonary emboli Pulmonary embolism Restless leg Restless leg syndrome Sinus bradycardia Sleep apnea Family History Family History Father History of CVA (cerebrovascular accident) Diabetes mellitus Mother Diabetes mellitus Family history of problems with anesthesia: No Surgical History Surgical History History of left knee replacement History of umbilical hernia repair Hx of colonoscopy History of Problems with Anesthesia: No Social History Social History Household Members: Spouse Housing: House Are you a primary manager medicare marketing to a significant other at home: No Do you presently have visiting nurse or other home services: No Alcohol intake: current Alcohol intake frequency: a few times a month Patient Tobacco Use Status: Never used Tobacco e-Cigarette/Vaping Use: Never Used Second Hand Smoke Exposure: No Use of substances other than those prescribed or required for medical reasons: Yes Substance Use Type Other:: gummy Are you DNR?: No Advance Directives: No Advance Directives Information Provided: Yes service: No Current occupational status: retired Current occupation: right handed Meds Allergies Allergy/AdvReac Type Severity Reaction Status Date / Time No Known Allergies Allergy Verified 08/20/22 09:07 [No Known Allergies*] Home Medications Medication Instructions Recorded Confirmed Last Taken Type oxycodone myristate 13.5 mg 0 mg PO DAILY PRN Restless Leg(S) 12/25/21 08/22/22 Unknown History capsule sprinkle extend release 12hr(DON'T CRUSH) (Xtampza ER) ropinirole 1 mg tablet 1 tab PO BID PRN restless legs 02/19/22 08/22/22 Unknown History rotigotine 1 mg/24 hour 1 patch topical DAILY 06/05/22 08/22/22 Unknown History transdermal 24 hour patch (Neupro) Exam Exam Date and Time: August 21, 2022 1216 Pertinent Lab Results Pertinent Lab Results: Laboratory Tests 08/20/22 08/20/22 08:59 08:59 WBC 6.7 Hgb 14.2 Hct 44.4 Plt Count 182 Sodium 142 Potassium 4.7 Chloride 106 Carbon Dioxide 28 BUN 19 H Creatinine 0.87 Assessment and Plan Final Anesthetic Review Family History of Problems with Anesthesia: No History of Problems with Anesthesia: No Documented by User: Hayde Santizo MD 08/22/22 13:24 [facility] Past Medical History Medical History On anticoagulant therapy Pulmonary emboli Pulmonary embolism Restless leg Restless leg syndrome Sinus bradycardia Sleep apnea Family History Family History Father History of CVA (cerebrovascular accident) Diabetes mellitus Mother Diabetes mellitus Surgical History Surgical History History of left knee replacement History of umbilical hernia repair Hx of colonoscopy Social History Social History Household Members: Spouse Housing: House Are you a primary manager medicare marketing to a significant other at home: No Do you presently have visiting nurse or other home services: No Alcohol intake: current Alcohol intake frequency: a few times a month Patient Tobacco Use Status: Never used Tobacco e-Cigarette/Vaping Use: Never Used Second Hand Smoke Exposure: No Use of substances other than those prescribed or required for medical reasons: Yes Substance Use Type Other:: gummy Are you DNR?: No Advance Directives: No Advance Directives Information Provided: Yes service: No Current occupational status: retired Current occupation: right handed Meds Allergies Allergy/AdvReac Type Severity Reaction Status Date / Time No Known Allergies Allergy Verified 08/20/22 09:07 [No Known Allergies*] Home Medications Medication Instructions Recorded Confirmed Last Taken Type oxycodone myristate 13.5 mg 0 mg PO DAILY PRN Restless Leg(S) 12/25/21 08/22/22 Unknown History capsule sprinkle extend release 12hr(DON'T CRUSH) (Xtampza ER) ropinirole 1 mg tablet 1 tab PO BID PRN restless legs 02/19/22 08/22/22 Unknown History rotigotine 1 mg/24 hour 1 patch topical DAILY 06/05/22 08/22/22 Unknown History transdermal 24 hour patch (Neupro) Exam Airway Mallampati Class: II TM Dist: >3cm Neck ROM: Full Loose/Missing/Broken Teeth: No Heart: rr Lungs: cta Assessment and Plan Final Anesthetic Review NPO: Yes ASA Class: III Final Preanesthetic Review: No Changes in Pt Med Stat, Meds/Allgs Chart Reviewed and Consent Obtained/Reviewed Patient Risk: Intermediate Procedure Risk: Low Anesthetic Plan Anesthetic Plan: MAC: Disposition: Standard PACU
[2022-08-22 12:10] VITALS: BMI 33.2
[2022-08-22 12:14] VITALS: BP 129/75; PULSE 50; RESP 18; TEMP 36.4; O2SAT 97
--- NOTE | 2022-08-22 12:48 | MHC.SHP ---
Pre-Procedural Eval Section A Date of Service: 08/22/22 The patient is an INPATIENT: No Changes since office visit: No Cold of Flu in the past 2 weeks, No New Medical Problems, No Changes in Medication and No Patient answered all questions The History & Physical has been completed within 30 days and I have reviewed it.: Yes Section B Chief Complaint: screening Allergies: Allergies Allergy/AdvReac Type Severity Reaction Status Date / Time No Known Allergies Allergy Verified 08/20/22 09:07 [No Known Allergies*] Plan I have reviewed the history and physical and performed a pertinent physical examination on my patient. No changes have occurred unless specified. Time Spent With Patient Time: Total time managing care of this patient today ____ minutes.
--- NOTE | 2022-08-22 13:40 | P.BOP_ITS ---
Brief Operative Note Date of Service: 08/22/22 Pre-op diagnosis: screening Post-op diagnosis: same Procedure: colonoscopy Surgeon: Bryson Kraus Anesthesia: MAC Was an Basic Combatant Swimmer used for this Procedure?: No Estimated blood loss (mL): 2 Pathology: other Condition: stable Disposition: PACU
[2022-08-22 13:44] VITALS: BP 107/62; PULSE 55; RESP 16; TEMP 36.1; O2SAT 97
--- NOTE | 2022-08-22 13:58 | OP_ITS ---
DATE OF SERVICE: 08/22/2022 SURGEON: Bryson Kraus MD INDICATIONS: Colon cancer screening and prior history of adenomatous colon polyps. PREOPERATIVE DIAGNOSIS: POSTOPERATIVE DIAGNOSIS: PROCEDURE PERFORMED: Colonoscopy to the terminal ileum with snare polypectomy and biopsy. ESTIMATED BLOOD LOSS: COMPLICATIONS: ANESTHESIA: Monitored anesthesia care. ASSISTANTS: SPECIMENS: DESCRIPTION OF PROCEDURE: A history and physical was performed. The risks and benefits of the procedure were explained to the patient. Informed consent was obtained. The patient was placed in the left lateral decubitus position. A digital rectal exam was performed and was found to be normal. The Olympus pediatric video colonoscope was introduced into the rectum and advanced to the cecum. The cecum was identified by transillumination, palpation, and identification of ileocecal valve. Examination was performed. The scope was removed. He tolerated the procedure well and was returned to the recovery area in stable condition. FINDINGS: The terminal ileum was examined and appeared normal. The visualized colonic mucosa was normal. The quality of the prep was good. Three polyps were identified in the cecum and removed two with the snare and one with the biopsy forceps. The largest measured approximately 12 mm and was pedunculated. This was snared and piecemeal resected. The 2nd 6 mm polyp was snared and a 3rd less than 5 mm polyp was removed with biopsy forceps. No other polyps were identified. There was mild to moderate sigmoid diverticulosis. Retroflexed examination showed small internal hemorrhoids. IMPRESSION: Colon polyps. RECOMMENDATION: Follow up the biopsy results. MD ERASMO Wilburn/RIA / [id number] MTDLadonna
[2022-08-22 13:59] VITALS: BP 126/75; PULSE 41; RESP 16; TEMP 36.1; O2SAT 97
== END 2022-08-22 14:26 | disposition home or self-care (01) ==
PROVIDERS: PCP Nurse Practitioner Family; Visit Provider Internal Medicine Gastroenterology
PROC: 0DJD8ZZ Inspection of Lower Intestinal Tract, Via Natural or Artificial Opening Endoscopic (ICD-10-PCS; CPT 45378; principal; 2022-08-22 13:00)
DX: Z12.11 Encounter for screening for malignant neoplasm of colon (principal); Z86.010 Personal history of colon polyps; D12.0 Benign neoplasm of cecum; K57.30 Diverticulosis of large intestine without perforation or abscess without bleeding; K64.8 Other hemorrhoids; G25.81 Restless legs syndrome; M17.0 Bilateral primary osteoarthritis of knee; G47.33 Obstructive sleep apnea (adult) (pediatric); R00.1 Bradycardia, unspecified; Z86.711 Personal history of pulmonary embolism; Z79.01 Long term (current) use of anticoagulants; Z79.899 Other long term (current) drug therapy
CPT/HCPCS: 45385; 45380; 88305

== ENCOUNTER → 2022-08-23 09:34 | Outpatient (BNVA) | payer MEDICARE, BC, SELFPAY | PROVIDERS: PCP Nurse Practitioner Family; Visit Provider Surgery Vascular Surgery | DX: I83.11 Varicose veins of right lower extremity with inflammation (principal) | CPT/HCPCS: 99212 ==

== ENCOUNTER 2022-10-01 08:37 | Outpatient (REF) | payer MEDICARE, BC, SELFPAY ==
[2022-10-01 11:32] LABS: MANUAL DIFF FLAG NO
[2022-10-01 11:44] LABS: Basophils Percent Auto 0.5 % (0-2); Eosinophils Absolute Auto 0.2 X10*3/uL (0.0-0.4); Eosinophils Percent Auto 3.6 % (0-4); Hematocrit 44.7 % (42.0-52.0); Hemoglobin 14.4 g/dl (14.0-18.0); Imm Gran Abs Auto 0.02 X10*3/uL (0.00-0.03); Imm Gran Pct Auto 0.3 % (0.0-0.4); Lymphocytes Absolute Auto 1.7 X10*3/uL (1.2-4.9); Lymphocytes Percent Auto 26.3 % (20-40); Mean Corpuscular HGB Conc 32.2 g/dl (31.0-36.0); Mean Corpuscular Hemoglobin 29.2 pg (27.0-33.0); Mean Corpuscular Volume 90.7 fL (80.0-98.0); Mean Platelet Volume 10.4 fL (9.4-12.4); Monocytes Absolute Auto 0.6 X10*3/uL (0.1-1.2); Neutrophils Absolute Auto 3.8 x10*3/uL (2.0-8.3); Neutrophils Percent Auto 59.3 % (45-73); Platelet Count 199 X10*3/uL (160-400); Red Blood Count 4.93 X10*6/uL (4.60-5.80); Red Cell Distribution Width 13.2 % (11.0-16.0); White Blood Count 6.4 X10*3/uL (4.8-10.8)
[2022-10-01 11:46] LABS: Appearance Urine Clear; Color Urine Yellow; Glucose Urine UA Negative (Negative); Leukocyte Esterase Urine Negative (Negative); Nitrite Urine Negative (Negative); PH 5.5 (5.0-9.0); Specific Gravity - Urine 1.025 (1.005-1.025); Urine Blood Negative (Negative); Urine Ketones Negative (Negative); Urine Protein Negative (Neg-Trace)
[2022-10-01 12:09] LABS: Alanine Aminotransferase 18 U/L (0-40); Alkaline Phosphatase 62 U/L (39-117); Anion Gap 12 (12-20); Aspartate Amino Transferase 14 U/L (5-37); Bilirubin Total 0.5 mg/dL (0.0-1.0); Blood Urea Nitrogen 17 mg/dL (9-16); Calcium 9.2 mg/dL (8.4-10.2); Carbon Dioxide 28 mmol/L (22-29); Chloride 106 mmol/L (96-108); Cholesterol 172 mg/dL; Estimated Glomerular Filt Rate > 60; Glucose Fasting 94 mg/dL (60-99); HDL Cholesterol 51 mg/dL; LDL Cholesterol Calculated 102 mg/dl; Potassium 4.2 mmol/L (3.3-5.1); Sodium 142 mmol/L (135-145); Total Protein 6.8 g/dL (6.5-8.0); Triglycerides 96 mg/dL
[2022-10-01 12:14] LABS: TSH reflex Free T4 0.95 uIU/mL (0.32-4.0)
[2022-10-01 12:20] LABS: Prostate Specific Antigen Scr 3.33 ng/mL (<0.05-4.0)
== END 2022-10-01 08:38 | disposition home or self-care (01) ==
LOC: HO.HMGCLDS 08:37
PROVIDERS: PCP Nurse Practitioner Family; Visit Provider Nurse Practitioner Family
DX: Z00.00 Encounter for general adult medical examination without abnormal findings (principal); Z12.5 Encounter for screening for malignant neoplasm of prostate; Z13.29 Encounter for screening for other suspected endocrine disorder; Z13.220 Encounter for screening for lipoid disorders
CPT/HCPCS: 36415; 80053; 80061; 81003; 84153; 84443; 85025

== ENCOUNTER 2022-11-23 08:29 | Outpatient (AMB) | payer MEDICARE, BC, SELFPAY ==
[2022-11-23 08:32] VITALS: BMI 34.7
--- NOTE | 2022-11-23 08:32 | A.OFFVIS_ITS ---
Intake Vital Signs 11/23/22 08:32 Height 6 ft Weight 256 lb BMI 34.7 Intake Visit Reasons: Right Leg Micro Allergies No Known Allergies [No Known Allergies*] Allergy (Verified 09/03/22 12:01) PFS Medical History On anticoagulant therapy Pulmonary emboli Pulmonary embolism Restless leg Restless leg syndrome Sinus bradycardia Sleep apnea Surgical History History of left knee replacement History of umbilical hernia repair Hx of colonoscopy Family History Father History of CVA (cerebrovascular accident) Diabetes mellitus Mother Diabetes mellitus Social History Household Members: Spouse Housing: House Are you a primary care coordination manager to a significant other at home: No Do you presently have visiting nurse or other home services: No Alcohol intake: current Alcohol intake frequency: a few times a month Patient Tobacco Use Status: Never used Tobacco e-Cigarette/Vaping Use: Never Used Second Hand Smoke Exposure: No service: No Current occupational status: retired Current occupation: right handed Cognitive needs: No Hearing needs: No Vision needs: No Physical Exam Vital Signs: BMI result Body Mass Index 34.7 Office Procedures Vascular Office Procedure Details Details: Diagnosis: Right Leg varicose veins with inflammation Procedure: Right leg Microphlebectomy Anesthesia: Local Infiltration 20 cc, Tumescent: 0 cc. Varicose veins were marked in the standing position on the right leg and the patient was then placed in the supine position. The right lower extremity was prepared and draped to allow knee flexion in the sterile field. The patient had large superficial varicose veins with significant symptoms of pain. It was therefore determined to perform microphlebectomies of the clusters of varicose veins. The patient had bulging varicose veins which were previously marked in the standing position which were more in the upper thigh and medial aspect of the thigh. A small stab incision was made longitudinally directly overlying the varicose vein in the calf and the varicose vein was grasped with a hemostat aided by a vein hook. It was then dissected as far proximally and distally as possible and avulsed. A total of 22 stab incisions were made and the procedure of stab phlebectomies was repeated 22 times. Hemostasis was checked and stab incision sites were closed with steri-strips and sterile dressing was given with gauze and krilex wrap followed by an irasema bandage. There were no complications and blood loss was minimal. Post-Op instructions were given and a follow-up appointment was recommended. 46938 - Stab Phlebectomy >20 All charges added?: Procedure code (CPT) selection complete Coding Level of Care Code Procedure Only CPT Codes Details - Vascular 6: 13942 - Stab Phlebectomy >20 ([id number])
== END 2022-11-23 09:38 | disposition home or self-care (01) ==
PROVIDERS: PCP Nurse Practitioner Family; Visit Provider Surgery Vascular Surgery
DX: I83.11 Varicose veins of right lower extremity with inflammation (principal)
CPT/HCPCS: 37766

== ENCOUNTER → 2022-11-23 08:29 | Outpatient (BNVA) | payer MEDICARE, BC, SELFPAY | PROVIDERS: PCP Nurse Practitioner Family; Visit Provider Surgery Vascular Surgery | DX: I83.11 Varicose veins of right lower extremity with inflammation (principal) | CPT/HCPCS: 37766 ==

== ENCOUNTER 2022-12-06 08:52 | Outpatient (AMB) | payer MEDICARE, BC, SELFPAY ==
[2022-12-06 08:56] VITALS: BMI 34.7
--- NOTE | 2022-12-06 08:56 | MHC.OFFVIS ---
Intake Vital Signs 12/06/22 08:56 Height 6 ft Weight 256 lb BMI 34.7 Intake Visit Reasons: 2 week follow up Right LE Micro 11/23/22 Intake Note: 2 week follow up Right LE Micro 11/23/22. Pt still has bruising and large VV clusters, no bleeding issues. Left LE has no issues Accompanied by: Self / Same As Patient Allergies No Known Allergies [No Known Allergies*] Allergy (Verified 12/06/22 08:59) HPI 2 week follow up Right LE Micro 11/23/22 HPI Details Very pleasant 67-year-old gentleman presents for follow-up regarding ray lower extremity microphlebectomy. Previous to that he had undergone right great saphenous vein ablation. In general reports an improvement of that leg. He did have significant varicosities including cluster in the right leg. Now presents for routine postprocedure follow-up. [facility] Medical History Restless leg syndrome On anticoagulant therapy Pulmonary emboli Pulmonary embolism Sinus bradycardia Sleep apnea Restless leg Surgical History History of left knee replacement Hx of colonoscopy History of umbilical hernia repair Family History Father History of CVA (cerebrovascular accident) Diabetes mellitus Mother Diabetes mellitus Social History Household Members: Spouse Housing: House Are you a primary home health care coordinator to a significant other at home: No Do you presently have visiting nurse or other home services: No Alcohol intake: current Alcohol intake frequency: a few times a month Patient Tobacco Use Status: Never used Tobacco e-Cigarette/Vaping Use: Never Used Second Hand Smoke Exposure: No service: No Current occupational status: retired Current occupation: right handed Cognitive needs: No Hearing needs: No Vision needs: No Review of Systems Const Reports as per HPI ENT Reports no additional complaints Card Denies chest pain, Denies chest pain at rest and Denies chest pain with activity Resp Denies chest congestion and Denies cough GI Reports no additional complaints Musc Details: pain over varicosities, aching of lower extremities, swelling, cramping, heaviness and tiredness, itching Denies abnormal gait Skin/Breast Reports pruritus and Denies wounds Neuro Reports no additional complaints and Denies abnormal gait Psych Denies no additional complaints Physical Exam Vital Signs: BMI result Body Mass Index 34.7 Const General: cooperative, healthy appearing and comfortable Orientation/consciousness: oriented to person, oriented to place and oriented to time Neck Carotids: no bruits Chest Chest palpation & inspection: normal inspection of the chest and normal palpation of entire chest wall Resp Effort & Inspection: normal respiratory effort and able to speak in complete sentences Cardio Rate: regular rate Heart sounds: S1 normal heart sound present and S2 normal heart sound present Peripheral pulses: Peripheral pulses 2+ throughout GI Inspection: Yes normal to inspection Skin Other: +2 edema, large rope-like varicosities greater than 4 mm right calf and thigh CEAP Classification C4 - skin color changes Ep - Etiology Primary As - superficial veins P - reflux General skin exam: dry skin Neuro General: oriented to person, oriented to place and oriented to time Extrem Right lower extremity: full ROM, normal capillary refill and edema Left lower extremity: full ROM, normal capillary refill and edema Psych Mental Status: mental status grossly normal Assessment & Plan Assessment & Plan (1) Varicose veins of right lower extremity with inflammation: Comment: 08/10/2022 - right great saphenous vein Radiofrequency ablation 11/23/2022 - right leg microphlebectomy Code(s): I83.11 - Varicose veins of right lower extremity with inflammation Plan: This patient has varicose veins with inflammation. He has had right leg microphlebectomy but due to the extensive nature of his varicosities will need repeat phlebectomy in the operating room. They continue to be a source of discomfort for the patient. The patient has tried conservative treatment with compression, leg elevation and exercise program for over 3 months time. They have been compliant with all treatment. This has provided minimal relief for the patient. I do not anticipate this course of treatment will alter the underlying etiology. The patient has been scheduled for lower extremity venous treatment inclusive of --- right leg microphlebectomy. Risks, benefits, and complications of this procedure has been discussed in detail with the patient including but not limited to bleeding, infection, and the development of a DVT. The patient has demonstrated a clear understanding and has consented. We will schedule the patient as soon as possible. Thank you for allowing us to participate in this patient's care. If there are any questions or concerns please do not hesitate to contact us. Coding Level of Care Code Est Pt Level 4 (48559) Diagnoses Varicose veins of right lower extremity with inflammation I83.11
== END 2022-12-06 09:19 | disposition home or self-care (01) ==
PROVIDERS: PCP Nurse Practitioner Family; Visit Provider Surgery Vascular Surgery
DX: I83.11 Varicose veins of right lower extremity with inflammation (principal)
CPT/HCPCS: 99214

== ENCOUNTER → 2022-12-06 08:52 | Outpatient (BNVA) | payer MEDICARE, BC, SELFPAY | PROVIDERS: PCP Nurse Practitioner Family; Visit Provider Surgery Vascular Surgery | DX: I83.11 Varicose veins of right lower extremity with inflammation (principal); Z98.890 Other specified postprocedural states | CPT/HCPCS: 99212 ==

== ENCOUNTER 2023-09-16 10:21 | Outpatient (AMB) | payer MEDICARE, BC, SELFPAY ==
[2023-09-16 10:22] VITALS: BP 128/82; PULSE 55; O2SAT 98; BMI 34.2
--- NOTE | 2023-09-16 10:22 | A.OFFPC_ITS ---
Vital Signs 09/16/23 10:22 Height 6 ft Weight 252 lb 8 oz BMI 34.2 BP 128/82 Blood Pressure Location Lt brachial Position Sitting Pulse 55 Pulse Source Pulse Oximeter Pulse Oximetry (%) 98 Oxygen Delivery Method Room Air Intake Visit Reasons: Annual PE/Blue [place]vers Allergies No Known Allergies [No Known Allergies*] Allergy (Verified 09/16/23 12:46) Medication List - Last Reconciled 09/16/23 by ENEDINA Hernandez oxycodone myristate CR-ER (Xtampza ER) 0 mg PO DAILY PRN ropinirole 0.5 mg PO BEDTIME rotigotine (Neupro) 1 patch topical DAILY Tobacco use date assessed: 09/16/23 Fall risk assessment: No Falls in past year Last assessed Fall Risk: 09/16/23 Dental Screening Dental Screen Date: 09/16/23 Did you have a dental visit in the last 12 months?: No Did you have a dental problem in the last 6 months where you did not have access to dental care?: No Was dental information given to patient?: Patient has dentist HPI Annual PE/Blue [place] HPI Details Pt is here for a PE. Will order labs. Colon screen is up to date. Due for PSA in the near future, will order. Denies dribbling with urination, weak stream, and frequent nocturia. He reports some difficulty starting a stream. Will refer to urology. Pt is following up with neurology. COUNT INCLUDES THE [facility] Medical History Central sleep apnea Insomnia Restless leg syndrome On anticoagulant therapy Pulmonary emboli Pulmonary embolism Sinus bradycardia Sleep apnea Restless leg Surgical History History of left knee replacement Hx of colonoscopy History of umbilical hernia repair Family History Father History of CVA (cerebrovascular accident) Diabetes mellitus Mother Diabetes mellitus Social History Household Members: Spouse Housing: House Are you a primary youth care specialist to a significant other at home: No Do you presently have visiting nurse or other home services: No Alcohol intake: current Alcohol intake frequency: a few times a month Patient Tobacco Use Status: Never used Tobacco e-Cigarette/Vaping Use: Never Used Second Hand Smoke Exposure: No service: No Current occupational status: retired Current occupation: right handed Cognitive needs: No Hearing needs: No Vision needs: No Questionnaire PHQ-9 Over the last 2 weeks, how often have you been bothered by any of the following problems? 1. Little interest or pleasure in doing things: several days 2. Feeling down, depressed, or hopeless: several days 3. Trouble falling or staying asleep, or sleeping too much: nearly every day 4. Feeling tired or having little energy: more than half the days 5. Poor appetite or overeating: several days 6. Feeling bad about yourself - or that you are a failure or have let yourself or your family down: not at all 7. Trouble concentrating on things, such as reading the newspaper or watching television: several days 8. Moving or speaking so slowly that other people could have noticed. Or the opposite - being so fidgety or restless that you have been moving around a lot more than usual: nearly every day 9. Thoughts that you would be better off or of hurting yourself in some wa y: not at all Total score: 12 Depression Screening Interpretation: Positive (pt refuses therapist, most of the + are related to the RLS (seeing specialist)) Depression Screening Follow-up: Existing condition Depression Screening Done: Yes 19752 - PHQ-9 Billing: Yes Source: Developed by Drs. Gary Botello, Amanda Aguilar, Darrian Novak and colleagues, with an educational star from [employer]. Thrive Questionnaire Date Thrive assessed: 09/16/23 I am a: Patient What is your living situation today?: I have a steady place to live Within the past 12 months, did the food you bought not last and you didn't have the money to get more?: Never true Within the past 12 months, did you worry whether your food would run out before you got money to buy more?: Never true Do you have trouble paying for medicines?: No Do you have trouble getting transportation to medical appointments?: No Do you have trouble paying your heating and electricity bill?: No Do you have trouble taking care of your child, family member or friend?: No Do you have trouble with day-to-day activities such as bathing, preparing meals, shopping, managing finances, etc.?: No Are you currently unemployed and looking for a job?: No Are you interested in more education?: No Please select the resources that you would like help with: None Currently or been in a relationship where the following occur: No concerns reported THRIVE Score: 0 AUDIT C Alcohol Use Questionnaire (AUDIT-C) 1. How often do you have a drink containing alcohol?: 2-4 times a month 2. How many drinks containing alcohol do you have on a typical day when you are drinking?: 3 or 4 3. How often do you have six or more drinks on one occasion?: Less than monthly Total Score: 4 Score Reviewed/Action Taken: Yes LIZETTE-7 AMB Questionnaire LIZETTE-7 Date LIZETTE - 7 assessed: 09/16/23 Feeling nervous, anxious, or on edge: 3 = Nearly every day Not being able to stop or control worryin = Not at all Worrying too much about different things: 0 = Not at all Trouble relaxin = Nearly every day Being so restless that it is hard to sit still: 3 = Nearly every day Becoming easily annoyed or irritable: 0 = Not at all Feeling afraid as if something awful might happen: 0 = Not at all Total LIZETTE-7 score (0-4 normal; 5-9 mild; 10-14 moderate; 15-21 severe): 9 Source: Developed by Drs. Gary Botello, Amanda Aguilar, Darrian Novak and colleagues, with an educational star from [employer]. LIZETTE-7 Assessment Billing LIZETTE-7 Assessment Tool: LIZETTE-7 Assessment 92060 Review of Systems Const Denies chills and Denies fever(s) Eyes Denies blurry vision ENT Denies vertigo, Denies dizziness and Denies sore throat Card Denies chest pain at rest, Denies chest pain with activity, Denies diaphoresis, Denies dyspnea and Denies dyspnea on exertion Resp Denies cough, Denies dyspnea, Denies dyspnea on exertion and Denies wheezing GI Denies abdominal pain, Denies melena, Denies hematochezia, Denies constipation, Denies diarrhea and Denies loose stools Denies hematuria Musc Denies numbness and Denies tingling Skin/Breast Denies lesions Neuro Denies vertigo, Denies dizziness, Denies numbness and Denies tingling Psych Denies anxiety, Denies depression, Denies homicidal ideation, Denies suicidal ideation and Denies other (substance abuse) Aller/Immun Denies wheezing Physical exam (Primary Care) Vital Signs: Last Vital Signs Pulse 55 09/16/23 10:22 BP 128/82 09/16/23 10:22 Pulse Ox 98 09/16/23 10:22 Oxygen Delivery Method Room Air 09/16/23 10:22 BMI result Body Mass Index 34.2 Tobacco/Smoking Status: Tobacco use Status Tobacco use date assessed 09/16/23 09/16/23 10:33 Patient Tobacco Use Status Never used Tobacco 09/16/23 10:22 e-Cigarette/Vaping Use Never Used 09/16/23 10:22 PHQ-9: PHQ-9 Score PHQ-9: Total score 12 09/16/23 11:03 Depression Screening Interpretation: Positive (pt refuses therapist, most of the + are related to the RLS (seeing specialist)) Depression Screening Follow-up: Existing condition Thrive Assessment: Date of Thrive Assessment Date Thrive assessed 09/16/23 09/16/23 10:33 Currently or been in a relationship where the following occur: No concerns reported Const General: cooperative Nutritional Appearance: obese Orientation/consciousness: patient oriented x3 HENMT Head: Yes normal to inspection, Yes normocephalic and Yes atraumatic Ears: TM's normal bilaterally Eyes General: appearance normal, both eyes and all related structures Alignment and Position: alignment normal and position normal Neck Neck: Yes normal visual inspection and Yes no lymphadenopathy Thyroid: Thyroid normal Resp Effort & Inspection: normal respiratory effort Auscultation: clear to auscultation bilaterally Cardio Rate: regular rate Rhythm: regular rhythm Heart sounds: S1 normal heart sound present, S2 normal heart sound present and no murmurs GI Palpation (GI): Soft to palpation and nontender Auscultation: normal bowel sounds Other: CLOVIS: difficult to perform, though prostate did feel enlarged. Male General Exam: Yes normal external exam Penis: normal penis Scrotum: scrotum normal, testes descended bilaterally and no inguinal hernias Testes: no testicular mass Skin Rashes: no rashes Neuro General: patient oriented x3, moves all extremities, no focal motor deficits and deep tendon reflexes 2+ bilaterally Romberg Test: Negative Psych Appearance: grossly normal Mental Status: mental status grossly normal Speech and movement: Normal speech and movement present Affect: normal affect Attitude: cooperative Thought process: Normal thought process present Thought content: Normal thought content present Insight: Good insight present (Psych) Judgement: Good judgement present (Psych) Assessment and Plan Assessment & Plan (1) Encounter for routine adult physical exam with abnormal findings: Code(s): Z00. - Encounter for general adult medical examination with abnormal findings Plan: Labs ordered (2) Screening for prostate cancer: Code(s): Z12.5 - Encounter for screening for malignant neoplasm of prostate Plan: PSA ordered (3) Enlarged prostate: Code(s): N40.0 - Benign prostatic hyperplasia without lower urinary tract symptoms Plan: referring to urology, psa ordered Plan The patient agreed to the use of a medical sales specialist for this encounter. Scribed for ENEDINA [place] by Jenna Harrington medical sales specialist, on 09/16/2023 at 10:55 EST. Orders: Orders Complete Blood Count Auto Diff Today Z00. - Encounter for general adult medical examination with abnormal findings UA CC w/rflx Micro + Cult Today Z00. - Encounter for general adult medical examination with abnormal findings Lipid Panel Today Z00. - Encounter for general adult medical examination with abnormal findings Vitamin D 25-OH Total Today Z00.01 - Encounter for general adult medical examination with abnormal findings Comprehensive [place]. Panel Fast Today Z00. - Encounter for general adult medical examination with abnormal findings TSH reflex Free T4 Today Z00.01 - Encounter for general adult medical examination with abnormal findings Prostate Specific Antigen Scr Today Z12.5 - Encounter for screening for malignant neoplasm of prostate Referrals Urology Referral N40.0 - Benign prostatic hyperplasia without lower urinary tract symptoms Coding Level of Care Code Est Pt Prev Care >65y(21500) Diagnoses Encounter for routine adult physical exam with abnormal findings Z00. Screening for prostate cancer Z12.5 Enlarged prostate N40.0 Additional Codes LIZETTE-7 Assessment Billing - LIZETTE-7 Assessment Tool: LIZETTE-7 Assessment 89914 ([id number])
== END 2023-09-16 12:55 | disposition home or self-care (01) ==
PROVIDERS: PCP Nurse Practitioner Family; Visit Provider Nurse Practitioner Family
DX: Z00.00 Encounter for general adult medical examination without abnormal findings (principal); Z12.5 Encounter for screening for malignant neoplasm of prostate; N40.0 Benign prostatic hyperplasia without lower urinary tract symptoms
CPT/HCPCS: 99397

== ENCOUNTER 2023-09-17 08:06 | Outpatient (REF) | payer MEDICARE, BC, SELFPAY ==
[2023-09-17 10:10] LABS: MANUAL DIFF FLAG NO
[2023-09-17 10:15] LABS: Appearance Urine Clear; Color Urine Yellow; Glucose Urine UA Negative (Negative); Leukocyte Esterase Urine Negative (Negative); Nitrite Urine Negative (Negative); PH 5.5 (5.0-9.0); Urine Blood Negative (Negative); Urine Ketones Negative (Negative); Urine Protein Negative (Neg-Trace)
[2023-09-17 10:25] LABS: Basophils Percent Auto 0.6 % (0-2); Eosinophils Absolute Auto 0.2 X10*3/uL (0.0-0.4); Eosinophils Percent Auto 3.4 % (0-4); Hematocrit 44.7 % (42.0-52.0); Hemoglobin 14.7 g/dl (14.0-18.0); Imm Gran Abs Auto 0.03 X10*3/uL (0.00-0.03); Imm Gran Pct Auto 0.4 % (0.0-0.4); Lymphocytes Absolute Auto 1.6 X10*3/uL (1.2-4.9); Lymphocytes Percent Auto 23.2 % (20-40); Mean Corpuscular HGB Conc 32.9 g/dl (31.0-36.0); Mean Corpuscular Hemoglobin 29.9 pg (27.0-33.0); Mean Platelet Volume 10.2 fL (9.4-12.4); Monocytes Absolute Auto 0.8 X10*3/uL (0.1-1.2); Monocytes Percent Auto 11.4 % (2-11); Neutrophils Absolute Auto 4.3 x10*3/uL (2.0-8.3); Platelet Count 206 X10*3/uL (160-400); Red Blood Count 4.91 X10*6/uL (4.60-5.80)
[2023-09-17 11:18] LABS: Alanine Aminotransferase 18 U/L (0-40); Albumin Level 4.1 g/dL (3.5-5.0); Alkaline Phosphatase 55 U/L (39-117); Anion Gap 13 (12-20); Aspartate Amino Transferase 14 U/L (5-37); Bilirubin Total 0.7 mg/dL (0.0-1.0); Blood Urea Nitrogen 16 mg/dL (9-16); Calcium 9.1 mg/dL (8.4-10.2); Carbon Dioxide 29 mmol/L (22-29); Chloride 104 mmol/L (96-108); Cholesterol 182 mg/dL (<200); Estimated Glomerular Filt Rate > 60; Glucose Fasting 98 mg/dL (60-99); HDL Cholesterol 51 mg/dL (>40); LDL Cholesterol Calculated 115 mg/dL (<100); Potassium 4.7 mmol/L (3.3-5.1); Sodium 141 mmol/L (135-145); TSH reflex Free T4 1.15 uIU/mL (0.32-4.0); Total Protein 6.8 g/dL (6.5-8.0); Triglycerides 83 mg/dL (<150); Vitamin D 25-OH Total 44.4 ng/mL (>30)
[2023-09-17 11:28] LABS: Prostate Specific Antigen Scr 3.66 ng/mL (<0.05-4.0)
== END 2023-09-17 08:07 | disposition home or self-care (01) ==
LOC: HO.HMGCLDS 08:06
PROVIDERS: PCP Nurse Practitioner Family; Visit Provider Nurse Practitioner Family
DX: Z00.01 Encounter for general adult medical examination with abnormal findings (principal); Z12.5 Encounter for screening for malignant neoplasm of prostate
CPT/HCPCS: 36415; 80053; 80061; 81003; 82306; 84153; 84443; 85025

== ENCOUNTER 2023-11-12 09:53 | Outpatient (AMB) | payer MEDICARE, BC, SELFPAY ==
--- NOTE | 2023-11-12 10:01 | MHC.OFFVIS ---
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 Veronica. He has a past medical history of restless leg syndrome, central sleep apnea, insomnia, PE, and sinus bradycardia. In discussion with the patient today reports following up with his PCP regarding ongoing lower urinary tract symptoms he has been experiencing at which time urology referral was made for further assessment evaluation. In discussion with the patient today reports noting ongoing issues with weak urinary stream and urinary hesitancy. In review of patient's chart it appears PSAs are as follows 09/30 3.3, 10/01 3.7 He discusses the recent loss of his approximately 1 weekend ago. He also discusses his lifelong issue of restless leg syndrome and follows up with daily he clinic for this issue. When asked he does report intermittent episodes of urinary urgency and frequency. He otherwise denies incontinence, nocturia, hematuria, dysuria, foul smelling urine, flank pain, fever, and or chills. In office urinalysis results reviewed with the patient today. PVR 27 mL. We discussed at length potential causes of lower urinary tract symptoms patient is experiencing. Discussed obtaining retroperitoneal ultrasound for further assessment evaluation. [facility] Medical History (Updated 11/12/23 @ 10:50 by ENEDINA Key) Central sleep apnea Insomnia Restless leg syndrome On anticoagulant therapy Pulmonary emboli Pulmonary embolism Sinus bradycardia Sleep apnea Restless leg Surgical History History of left knee replacement Hx of colonoscopy History of umbilical hernia repair Family History Father History of CVA (cerebrovascular accident) Diabetes mellitus Mother Diabetes mellitus Social History Household Members: Spouse Housing: House Are you a primary healthcare management consultant to a significant other at home: No Do you presently have visiting nurse or other home services: No Alcohol intake: current Alcohol intake frequency: a few times a month Patient Tobacco Use Status: Never used Tobacco e-Cigarette/Vaping Use: Never Used Second Hand Smoke Exposure: No service: No Current occupational status: retired Current occupation: right handed Cognitive needs: No Hearing needs: No Vision needs: No Review of Systems Const All systems reviewed & are unremarkable except as noted in HPI and below Physical Exam Const General: cooperative, healthy appearing, comfortable, no acute distress, well developed, alert and awake Nutritional Appearance: overweight Orientation/consciousness: patient oriented x3 Limitations: no limitations HEENT Head: Yes normal to inspection, Yes normocephalic and Yes atraumatic Ears: hearing grossly normal bilaterally Eyes General: appearance normal, both eyes and all related structures Neck Neck: Yes normal visual inspection and Yes trachea midline Chest Chest palpation & inspection: normal inspection of the chest Resp Effort & Inspection: normal respiratory effort and able to speak in complete sentences Cardio Rate: regular rate GI Inspection: Yes normal to inspection General: Yes no CVA tenderness Back/Spine/Pelvis Back: no CVA tenderness Skin General skin exam: no rashes or lesions noted Neuro General: patient oriented x3 Extrem General: Yes normal to inspection Psych Appearance: grossly normal and well kempt Mental Status: mental status grossly normal Speech and movement: Normal speech and movement present and Clear speech present Affect: normal affect Attitude: cooperative Thought process: Normal thought process present Thought content: Normal thought content present Insight: Fair insight present (Psych) Judgement: Fair judgement present (Psych) Office Procedures Post Void Residual Post Residual Void Post Void Residual (PVR): 27 08463-Flss Void Residual by ultrasound Results AMB Urinalysis, Automated UA Leukoctes 0 Lara/uL Last Edit by Magda España on 11/12/23 10:19 UA Nitrite Last Edit by Magda España on 11/12/23 10:19 UA Urobilinogen 0.2 mg/dL Last Edit by Magda España on 11/12/23 10:19 UA Protein 0 mg/dL Last Edit by Magda España on 11/12/23 10:19 UA pH 6.0 Last Edit by Magda Reddoliva on 11/12/23 10:19 UA Blood 0 Arthur/uL Last Edit by Magda Reddoliva on 11/12/23 10:19 UA Specific [place] 1.030 Last Edit by Magda Reddoliva on 11/12/23 10:19 UA Ketone Last Edit by Fabiomelecio Ivaniaoliva on 11/12/23 10:19 UA Bilirubin 0 mg/dL Last Edit by Fabiomelecio Ivaniaoliva on 11/12/23 10:19 UA Glucose 0 mg/dL Last Edit by Magda Ivaniaoliva on 11/12/23 10:19 Results Reviewed Results Reviewed: Laboratory Last Values Urine pH (Auto) 6.0 11/12/23 10:15 Specific [place] (Auto) 1.030 11/12/23 10:15 Urine Protein (Auto) 0 mg/dL 11/12/23 10:15 Glucose (UA)(Auto) 0 mg/dL 11/12/23 10:15 Urine Blood (Auto) 0 Arthur/uL 11/12/23 10:15 Urine Bilirubin (Auto) 0 mg/dL 11/12/23 10:15 Urine Urobilinogen (Auto) 0.2 mg/dL 11/12/23 10:15 Leukocyte Esterase (Auto) 0 Lara/uL 11/12/23 10:15 Assessment & Plan Assessment & Plan (1) Enlarged prostate: Code(s): N40.0 - Benign prostatic hyperplasia without lower urinary tract symptoms Category: Medical (2) Weak urinary stream: Code(s): R39.12 - Poor urinary stream Category: Medical (3) Lower urinary tract symptoms: Code(s): R39.9 - Unspecified symptoms and signs involving the genitourinary system Category: Medical Plan In office urinalysis results reviewed with the patient today; as noted above. PVR 27 mL. Discussed at length potential causes for lower urinary tract symptoms patient is experiencing. Recent PSA results reviewed with the patient today; as noted above. Discussed possible near future in office cystoscopy for further assessment evaluation if symptoms persist and/or worsen. Start Flomax as discussed and prescribed. Will obtain retroperitoneal ultrasound for further assessment evaluation. Follow-up in 1-3 months with imaging to be completed prior; or sooner with any issues, concerns, and or questions. Orders: Orders US retroperitoneal comp Today N40.0 - Benign prostatic hyperplasia without lower urinary tract symptoms, R39.12 - Poor urinary stream AMB Urinalysis Automated Today Z13.9 - Encounter for screening, unspecified AMB Post Void Residual by ultrasound Today N40.0 - Benign prostatic hyperplasia without lower urinary tract symptoms Medications: New tamsulosin 0.4 mg PO BEDTIME 30 caps 3RF 30 days N40.1 - Benign prostatic hyperplasia with lower urinary tract symptoms, R35.1 - Nocturia Patient Instructions: The patient had an opportunity to ask questions regarding the treatment plan. All questions were answered. Physical exam, labs, and imaging were discussed and reviewed in detail. As well as risks, benefits, and discussion of treatment choices. No major barriers to understanding were identified. The patient expressed understanding and agreement with the above treatment plan. The patient was made aware they should contact our office by phone for worsening of their current condition, the appearance of new symptoms, or with any questions or concerns. Compliance is encouraged with any medications and follow up testing that is ordered. It is a privilege to be allowed the opportunity to participate in? your urological care.? Again, if you have any questions or concerns If you have any questions or concerns please do not hesitate to contact me. The office is [phone]. This note is constructed using voice recognition software. While every effort has been made to ensure accuracy writer errors may have been included. Yours sincerely, ENEDINA Key Coding Level of Care Code New Pt Level 4 (37134) Diagnoses Enlarged prostate N40.0 Weak urinary stream R39.12 Lower urinary tract symptoms R39.9 CPT Codes Post Residual Void - PVR CPT Code: 56526-Krin Void Residual by ultrasound ([id number])
== END 2023-11-12 10:35 | disposition home or self-care (01) ==
PROVIDERS: PCP Nurse Practitioner Family; Visit Provider Nurse Practitioner Family
DX: N40.0 Benign prostatic hyperplasia without lower urinary tract symptoms (principal); R39.12 Poor urinary stream; R39.9 Unspecified symptoms and signs involving the genitourinary system; Z13.9 Encounter for screening, unspecified
CPT/HCPCS: 99204

== ENCOUNTER → 2023-11-12 09:53 | Outpatient (BNVA) | payer MEDICARE, BC, SELFPAY | PROVIDERS: PCP Nurse Practitioner Family; Visit Provider Nurse Practitioner Family | DX: N40.1 Benign prostatic hyperplasia with lower urinary tract symptoms (principal); R39.12 Poor urinary stream; R39.9 Unspecified symptoms and signs involving the genitourinary system | CPT/HCPCS: 51798; 81003; 99202 ==

== ENCOUNTER 2023-11-15 09:10 | Outpatient (REF) | payer MEDICARE, BC, SELFPAY ==
--- NOTE | ~2023-11-15 | XR_ITS ---
EXAMINATION: XR chest 2V CLINICAL INFORMATION: Z20.818 - Contact with and (suspected) exposure to other bacterial commu... COMPARISON: None TECHNIQUE: 2 views of the chest FINDINGS: Clear lungs. No pneumothorax. No pleural effusion. Normal cardiomediastinal silhouette. XR/XR chest 2V IMPRESSION: Clear lungs. Electronically signed by: Aline Begum MD 12/03/2023 04:30 PM EDT
[2023-11-21 03:04] LABS: Legionella Ag Urine Not Detected (Not Detected)
[2023-11-22 18:18] LABS: Legionella Pneumophila Ab IgM <1:256 TITER
== END 2023-11-15 09:11 | disposition home or self-care (01) ==
LOC: HO.XRAY 09:10
PROVIDERS: PCP Nurse Practitioner Family; Visit Provider Nurse Practitioner Family
DX: Z20.818 Contact with and (suspected) exposure to other bacterial communicable diseases (principal)
CPT/HCPCS: 71046; 86713; 87449

== ENCOUNTER 2023-12-17 09:46 | Outpatient (REF) | payer MEDICARE, BC, SELFPAY ==
--- NOTE | ~2023-12-17 | US_ITS ---
EXAMINATION: US RETROPERITONEAL COMPLETE (RENAL) CLINICAL INFORMATION: Benign prostatic hyperplasia without lower urinary tract symptoms. COMPARISON: Limited abdominal ultrasound 05/31/2022. Ultrasound abdomen complete 03/19/2018. TECHNIQUE: Real-time imaging of the kidneys and bladder. FINDINGS: RIGHT KIDNEY: 12.6 x 6.8 x 5.2 cm (SAG x AP x TRV). The kidney is normal in size, contour, and echogenicity. Renal cortical thickness is normal. A junctional cortical defect is present. No renal calculi or focal parenchymal lesions. LEFT KIDNEY: 13.0 x 5.7 x 4.6 cm (SAG x AP x TRV). The kidney is normal in size, contour, and echogenicity. Renal cortical thickness is normal. There is a linear echogenic area seen which could be a nonobstructing calculus. No other potential renal calculi or focal parenchymal lesions. BLADDER: Well distended and normal. Bilateral ureteral jets are demonstrated. Prevoid bladder volume is 576.0 mL. Postvoid bladder volume is 367.4 mL. Enlarged prostate, volume 58.5 mL. ADDITIONAL FINDINGS: The liver demonstrate increased echogenicity consistent with hepatic steatosis US/US retroperitoneal comp IMPRESSION: 1. BPH with large post void residual. 2. Question of nonobstructing left renal calculus. 3. Incidentally noted hepatic steatosis. Electronically signed by: Declan Encinas MD 01/08/2024 12:45 AM EDT
== END 2023-12-17 09:47 | disposition home or self-care (01) ==
LOC: HO.US 09:46
PROVIDERS: PCP Nurse Practitioner Family; Visit Provider Nurse Practitioner Family
DX: N40.0 Benign prostatic hyperplasia without lower urinary tract symptoms (principal); R39.12 Poor urinary stream
CPT/HCPCS: 76770

== ENCOUNTER 2023-12-26 11:36 | Outpatient (AMB) | payer MEDICARE, BC, SELFPAY ==
--- NOTE | 2023-12-26 11:36 | A.OFFVIS_ITS ---
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 Veronica. He has a past medical history of restless leg syndrome, central sleep apnea, insomnia, PE, and sinus bradycardia. He is being followed up on today via video telehealth. Of note, patient was seen approximately 3 months ago at which time a retroperitoneal ultrasound was ordered for further assessment evaluation as patient had been reporting ongoing issues with weak urinary stream and urinary hesitancy. He was also started on Flomax. In discussion with the patient today he reports noting somewhat improvement in the flow of his urination with 0.4 mg of Flomax daily. Recent retroperitoneal ultrasound results reviewed with the patient today. Bilateral kidneys are normal in size, contour, and echogenicity. Right kidney with no renal calculi. Left kidney with linear echogenic area seen which can represent nonobstructing calculus. The bladder is well distended and normal. Bladder jets are demonstrated. Pre void bladder volume is 575 mL. Postvoid bladder volume is approximately 370 mL. Enlarged prostate measuring a proximally 59 mL. We discussed trial finasteride given imaging noting somewhat enlarged prostate and PSAs are as follows: PSA: 09/30 3.3, 10/01 3.7 He denies incontinence, nocturia, hematuria, dysuria, foul smelling urine, flank pain, fever, and or chills. We discussed at potential causes of lower urinary tract symptoms patient is experiencing. Discussed possible near future in office cystoscopy for further assessment evaluation. He otherwise offers no other issues or concerns at this time. [facility] Medical History Central sleep apnea Insomnia Restless leg syndrome On anticoagulant therapy Pulmonary emboli Pulmonary embolism Sinus bradycardia Sleep apnea Restless leg Surgical History History of left knee replacement Hx of colonoscopy History of umbilical hernia repair Family History Father History of CVA (cerebrovascular accident) Diabetes mellitus Mother Diabetes mellitus Social History Household Members: Spouse Housing: House Are you a primary rn care transition to a significant other at home: No Do you presently have visiting nurse or other home services: No Alcohol intake: current Alcohol intake frequency: a few times a month Patient Tobacco Use Status: Never used Tobacco e-Cigarette/Vaping Use: Never Used Second Hand Smoke Exposure: No service: No Current occupational status: retired Current occupation: right handed Cognitive needs: No Hearing needs: No Vision needs: No Review of Systems Const All systems reviewed & are unremarkable except as noted in HPI and below Physical Exam Const General: cooperative, healthy appearing, comfortable, no acute distress, well developed, alert and awake Orientation/consciousness: patient oriented x3 Resp Effort & Inspection: normal respiratory effort and able to speak in complete sentences Neuro General: patient oriented x3 Psych Appearance: grossly normal and well kempt Mental Status: mental status grossly normal Speech and movement: Clear speech present Affect: normal affect Thought process: Normal thought process present Thought content: Normal thought content present Insight: Fair insight present (Psych) Judgement: Fair judgement present (Psych) Telehealth Telehealth Telehealth Platform: [facility] Location of provider rendering services: practice address Location of patient: address on file Patient Identification confirmed using: Name, : Yes Telehealth method: video Patient verbally consented to treatment: Yes Patient verbally consented to billing insurance company: Yes Patient informed of any privacy concerns related to visit: Yes Minutes spent on Phone/Video with Pt.: 20 Results Reviewed Results Reviewed: Date of Service: 12/17/23 EXAMINATION: US RETROPERITONEAL COMPLETE (RENAL) FINDINGS: RIGHT KIDNEY: 12.6 x 6.8 x 5.2 cm (SAG x AP x TRV). The kidney is normal in size, contour, and echogenicity. Renal cortical thickness is normal. A junctional cortical defect is present. No renal calculi or focal parenchymal lesions. LEFT KIDNEY: 13.0 x 5.7 x 4.6 cm (SAG x AP x TRV). The kidney is normal in size, contour, and echogenicity. Renal cortical thickness is normal. There is a linear echogenic area seen which could be a nonobstructing calculus. No other potential renal calculi or focal parenchymal lesions. BLADDER: Well distended and normal. Bilateral ureteral jets are demonstrated. Prevoid bladder volume is 576.0 mL. Postvoid bladder volume is 367.4 mL. Enlarged prostate, volume 58.5 mL. ADDITIONAL FINDINGS: The liver demonstrate increased echogenicity consistent with hepatic steatosis IMPRESSION: 1. BPH with large post void residual. 2. Question of nonobstructing left renal calculus. 3. Incidentally noted hepatic steatosis. Assessment & Plan Assessment & Plan (1) Enlarged prostate: Code(s): N40.0 - Benign prostatic hyperplasia without lower urinary tract symptoms Category: Medical (2) Lower urinary tract symptoms: Code(s): R39.9 - Unspecified symptoms and signs involving the genitourinary system Category: Medical (3) Weak urinary stream: Code(s): R39.12 - Poor urinary stream Category: Medical Plan Recent retroperitoneal ultrasound results reviewed with the patient today; as noted above. Patient reports noting somewhat improvement in lower urinary tract symptoms with 0.4 mg of Flomax; will increase to 0.8 mg daily. Start finasteride as discussed and prescribed. Discussed possible near future in office cystoscopy for further assessment evaluation. We discussed bladder triggers/irritants. Will obtain PSA in 4 months. Follow-up in 4 months with lab to be completed prior; or sooner with any issues, concerns, and or questions. Orders: Orders Prostate Specific Antigen 4 Months N40.0 - Benign prostatic hyperplasia without lower urinary tract symptoms Medications: New finasteride 5 mg PO DAILY 90 tabs 1RF 90 days N32.0 - Bladder-neck obstruction Changed From tamsulosin 0.4 mg PO BEDTIME 30 days 30 caps 3RF R35.1 - Nocturia, N40.1 - Benign prostatic hyperplasia with lower urinary tract symptoms To tamsulosin 0.8 mg (2 x 0.4 mg) PO BEDTIME 180 caps 1RF 90 days R35.1 - Nocturia, N40.1 - Benign prostatic hyperplasia with lower urinary tract symptoms Patient Instructions: The patient had an opportunity to ask questions regarding the treatment plan. All questions were answered. Physical exam, labs, and imaging were discussed and reviewed in detail. As well as risks, benefits, and discussion of treatment choices. No major barriers to understanding were identified. The patient expressed understanding and agreement with the above treatment plan. The patient was made aware they should contact our office by phone for worsening of their current condition, the appearance of new symptoms, or with any questions or concerns. Compliance is encouraged with any medications and follow up testing that is ordered. It is a privilege to be allowed the opportunity to participate in? your urological care.? Again, if you have any questions or concerns If you have any questions or concerns please do not hesitate to contact me. The office is [phone]. This note is constructed using voice recognition software. While every effort has been made to ensure accuracy engineering program analyst errors may have been included. Yours sincerely, ENEDINA Key Coding Level of Care Code Tele Est Pt Level 4 (00682) Diagnoses Enlarged prostate N40.0 Lower urinary tract symptoms R39.9 Weak urinary stream R39.12 Time Spent (min) 20
== END 2023-12-26 16:10 | disposition home or self-care (01) ==
LOC: HO.HUSH 11:36
PROVIDERS: PCP Nurse Practitioner Family; Visit Provider Nurse Practitioner Family
DX: N40.0 Benign prostatic hyperplasia without lower urinary tract symptoms (principal); R39.9 Unspecified symptoms and signs involving the genitourinary system; R39.12 Poor urinary stream
CPT/HCPCS: 99214

== ENCOUNTER → 2023-12-26 11:36 | Outpatient (BNVA) | payer MEDICARE, BC, SELFPAY | PROVIDERS: PCP Nurse Practitioner Family; Visit Provider Nurse Practitioner Family ==

== ENCOUNTER 2024-01-10 11:52 | Outpatient (REF) | payer MEDICARE, BC, SELFPAY ==
--- NOTE | ~2024-01-10 | XR_ITS ---
EXAMINATION: XR CHEST CLINICAL INFORMATION: Cough. COMPARISON: Chest radiograph dated 11/15/2023. TECHNIQUE: 2 views of the chest were obtained. FINDINGS: The lungs are clear. The cardiomediastinal silhouette is normal in size. There is no pleural effusion or pneumothorax. No acute osseous abnormality. XR/XR chest 2V IMPRESSION: No acute cardiopulmonary findings. Electronically signed by: Fernando Mackenzie MD 01/10/2024 03:59 PM EDT
[2024-01-10 18:16] LABS: Influenza A PCR NEGATIVE (Negative); Influenza B PCR NEGATIVE (Negative); Resp Syncy Virus RNA Qual PCR NEGATIVE (Negative); SARS COV2 PCR INHOUSE NEGATIVE (Negative)
== END 2024-01-10 11:53 | disposition home or self-care (01) ==
LOC: HO.HMGCX 11:52
PROVIDERS: PCP Nurse Practitioner Family; Visit Provider Physician Assistant
DX: R05.9 Cough, unspecified (principal); B34.9 Viral infection, unspecified
CPT/HCPCS: 0241U; 71046; 99212

== ENCOUNTER 2024-01-10 11:52 | Outpatient (AMB) | payer MEDICARE, BC, SELFPAY ==
--- NOTE | 2024-01-10 12:44 | AM.OFFWIN_ITS ---
Intake Vital Signs 01/10/24 12:45 Height 6 ft Weight 251 lb BMI 34.0 BP 122/84 Blood Pressure Location Rt brachial Position Sitting Pulse 52 Pulse Source Pulse Oximeter Pulse Oximetry (%) 99 Oxygen Delivery Method Room Air Intake Visit Reasons: PE chills, vomiting, headache Intake Note: Patient here for stomach issues, vomiting, headaches, chills which has been present for about 1 week. Patient Tobacco Use Status: Never used Tobacco Accompanied by: Son Allergies No Known Allergies [No Known Allergies*] Allergy (Verified 01/10/24 12:46) Do you need a note to return to daycare/school/sports/work: No HPI HPI Comments History of Present Illness Details Patient is a 68-year-old male complaining of 1 week of subjective fevers and chills, nausea with 1 episode of vomiting this morning, headaches, diarrhea which resolved and fatigue. He tells me he feels like there is something wrong but he just can not put his finger on it. He tells me he is not sleeping well. He does tell me he has a diagnosis of central sleep apnea and he uses a machine when he sleeps and he has been using it but he is not sleeping. He also tells me he has a history of restless leg syndrome and he takes extended-release oxycodone for this. Tells me he has had reduced p.o. intake over the last week. He denies any sinus pain, head congestion, ear pain, shortness of breath, trouble breathing, bloody or black stools or a cough. He denies a history of asthma or COPD. He tells me he does have a history of an unprovoked pulmonary embolism and DVT and was on a blood thinner but is now off the blood thinner. He also tells me his in October have legionnaires pneumonia. He tells me he has since had imaging of his lungs since he was around her every day and he was told he was fine. [facility] Medical History Central sleep apnea Insomnia Restless leg syndrome On anticoagulant therapy Pulmonary emboli Pulmonary embolism Sinus bradycardia Sleep apnea Restless leg Surgical History History of left knee replacement Hx of colonoscopy History of umbilical hernia repair Family History Father History of CVA (cerebrovascular accident) Diabetes mellitus Mother Diabetes mellitus Social History Household Members: Spouse Housing: House Are you a primary medicare insurance specialist to a significant other at home: No Do you presently have visiting nurse or other home services: No Alcohol intake: current Alcohol intake frequency: a few times a month Patient Tobacco Use Status: Never used Tobacco e-Cigarette/Vaping Use: Never Used Second Hand Smoke Exposure: No service: No Current occupational status: retired Current occupation: right handed Cognitive needs: No Hearing needs: No Vision needs: No Review of Systems Const All systems reviewed & are unremarkable except as noted in HPI and below Physical Exam Vital Signs: Last Vital Signs Pulse 52 01/10/24 12:45 BP 122/84 01/10/24 12:45 Pulse Ox 99 01/10/24 12:45 Oxygen Delivery Method Room Air 01/10/24 12:45 BMI result Body Mass Index 34.0 Const General: cooperative, healthy appearing, comfortable and no acute distress Orientation/consciousness: patient oriented x3 Limitations: no limitations HEENT Head: Yes normal to inspection Ears: hearing grossly normal bilaterally, external ears normal and TM's normal bilaterally General nose exam: Normal external nose present, Normal nares present and No nasal discharge present Face and sinus: Yes normal facial exam and Yes sinuses nontender Mouth: Normal oral and palatal mucosa present and moist mucous membranes Throat: Yes tonsils normal, Yes uvula midline and Yes posterior oropharynx abnormal (Erythema) Eyes General: appearance normal, both eyes and all related structures Neck Neck: Yes normal visual inspection Resp Effort & Inspection: normal respiratory effort, able to speak in complete sentences, no respiratory distress, not tachypneic, no tripod positioning and no use of accessory muscles Auscultation: clear to auscultation bilaterally Cardio Rate: regular rate Rhythm: regular rhythm Heart sounds: normal S1 and S2 Skin General skin exam: no rashes or lesions noted Neuro General: patient oriented x3 Extrem General: Yes normal to inspection and Yes no clubbing, cyanosis or edema Assessment & Plan Assessment & Plan (1) Acute viral syndrome: Code(s): B34.9 - Viral infection, unspecified Plan: Vital signs stable, patient well-appearing and physical exam relatively unremarkable. Sent flu, COVID and RSV testing and ordered a chest x-ray. Recommended rest, hydration and treating symptoms with otc medication. Plan see above Orders: Orders SARS-CoV2/FLU/RSV Today B34.9 - Viral infection, unspecified XR chest 2V Today R05.9 - Cough, unspecified Coding Level of Care Code Est Pt Level 4 (91929) Diagnoses Acute viral syndrome B34.9
[2024-01-10 12:45] VITALS: BP 122/84; PULSE 52; O2SAT 99; BMI 34.0
== END 2024-01-10 13:39 | disposition home or self-care (01) ==
PROVIDERS: PCP Nurse Practitioner Family; Visit Provider Physician Assistant
DX: B34.9 Viral infection, unspecified (principal)

== ENCOUNTER 2024-01-10 13:30 | Outpatient (REF) | payer MEDICARE, BC, SELFPAY | END 2024-01-10 13:31 | disposition home or self-care (01) | LOC: HO.LAB 13:30 | PROVIDERS: Visit Provider Physician Assistant | DX: Z13.89 Encounter for screening for other disorder (principal) ==

== ENCOUNTER 2024-05-28 13:40 | Outpatient (AMB) | payer MEDICARE, BC, SELFPAY ==
[2024-05-28 13:51] VITALS: BP 122/80; PULSE 57; TEMP 36.6; O2SAT 98; BMI 34.0
--- NOTE | 2024-05-28 13:51 | MHC.PC.OV ---
Vital Signs 05/28/24 13:51 Height 6 ft Weight 251 lb BMI 34.0 BP 122/80 Blood Pressure Location Lt brachial Position Sitting Pulse 57 Pulse Source Pulse Oximeter Temp 97.8 F Temp Source Oral Pulse Oximetry (%) 98 Oxygen Delivery Method Room Air Intake Visit Reasons: Rt and Lt eye Preop Intake Note: pt is here for right and left eye pre op clearance RT Eye 06/01/24 LT Eye 06/15/24 Spoke to office scheduled pt 05/28/24 at 2pm -no ekg or labs required. 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 Accompanied by: Self / Same As Patient Allergies No Known Allergies [No Known Allergies*] Allergy (Verified 05/28/24 14:41) Medication List - Last Reconciled 05/28/24 by VIOLETTE Hernandez buprenorphine-naloxone 2-0.5 mg 0.25 - 0.5 film sublingual DAILY finasteride 5 mg PO DAILY 90 days ropinirole mg PO tamsulosin 0.8 mg (2 x 0.4 mg) PO BEDTIME 90 days Tobacco use date assessed: 05/28/24 Fall risk assessment: No Falls in past year Last assessed Fall Risk: 05/28/24 Dental Screening Dental Screen Date: 05/28/24 Did you have a dental visit in the last 12 months?: Yes Did you have a dental problem in the last 6 months where you did not have access to dental care?: No Was dental information given to patient?: Patient has dentist HPI Rt and Lt eye Preop HPI Details Chief Complaint The patient presents for a preoperative evaluation for cataract surgery. History of Present Illness The patient is a 68-year-old male presenting for a preoperative evaluation related to cataract surgery. He denies recent fevers, chills, chest pain, or shortness of breath and does not show any signs of infection, including lymphadenopathy or sore throat. The discussion noted his history of longstanding bradycardia and a new systolic murmur detected during this visit. No laboratory tests or EKGs were deemed necessary for the cataract procedure at this point. Social History Health Maintenance Review of Systems - General: Denies fever, chills - Cardiovascular: Denies chest pain, shortness of breath - Infection: Denies lymphadenopathy, sore throat Physical Exam General: Cooperative, healthy appearing, comfortable, no acute distress and well developed Orientation: Patient oriented x3 Limitations: No limitations Head: Normal to inspection Ears: Hearing grossly normal bilaterally Nose: Normal external nose present Face and sinus: Normal facial exam Eyes: Appearance normal, both eyes and all related structures Neck: Normal visual inspection and Yes full ROM Respiratory: Normal respiratory effort and able to speak in complete sentences. Clear to auscultation bilaterally Cardiovascular: Normal S1 and S2. Very faint systolic murmur noted. Bradycardic GI: Normal to inspection. Soft to palpation and nontender Skin: No rashes or lesions noted Neuro: Patient oriented x3 Extremities: Normal to inspection Results Plan The patient is cleared for cataract surgery. The newfound systolic murmur will be evaluated with an echocardiogram to investigate underlying causes. Longstanding bradycardia remains stable. Discussion Notes I informed the patient that he is medically fit for the upcoming cataract surgery. We discussed the new systolic murmur identified during the physical exam, and I explained the importance of conducting an echocardiogram to further assess this finding. I reassured him that without current symptoms or significant bradycardia changes, he remains stable enough for surgery. I also advised that no lab work or EKG is needed at this point specifically for the cataract procedure but emphasized the importance of monitoring during the surgical process. Patient Instructions - Prepare for cataract surgery as scheduled. - Undergo an echocardiogram as planned to evaluate the new systolic murmur. - Report any new or worsening symptoms immediately, especially chest pain, shortness of breath, or irregular heartbeat. [facility] Medical History Central sleep apnea Insomnia Restless leg syndrome On anticoagulant therapy Pulmonary emboli Pulmonary embolism Sinus bradycardia Sleep apnea Restless leg Surgical History History of left knee replacement Hx of colonoscopy History of umbilical hernia repair Family History Father History of CVA (cerebrovascular accident) Diabetes mellitus Mother Diabetes mellitus Social History Household Members: Spouse Housing: House Are you a primary intensive care nurse to a significant other at home: No Do you presently have visiting nurse or other home services: No Alcohol intake: current Alcohol intake frequency: a few times a month Patient Tobacco Use Status: Never used Tobacco e-Cigarette/Vaping Use: Never Used Second Hand Smoke Exposure: No service: No Current occupational status: retired Current occupation: right handed Cognitive needs: No Hearing needs: No Vision needs: No Questionnaire PHQ-9 Over the last 2 weeks, how often have you been bothered by any of the following problems? 1. Little interest or pleasure in doing things: not at all 2. Feeling down, depressed, or hopeless: not at all 3. Trouble falling or staying asleep, or sleeping too much: not at all 4. Feeling tired or having little energy: not at all 5. Poor appetite or overeating: not at all 6. Feeling bad about yourself - or that you are a failure or have let yourself or your family down: not at all 7. Trouble concentrating on things, such as reading the newspaper or watching television: not at all 8. Moving or speaking so slowly that other people could have noticed. Or the opposite - being so fidgety or restless that you have been moving around a lot more than usual: not at all 9. Thoughts that you would be better off or of hurting yourself in some way: not at all Total score: 0 Depression Screening Interpretation: Negative Depression Screening Done: Yes 44344 - PHQ-9 Billing: Yes Source: Developed by Drs. Gary Botello, Amanda Aguilar, Darrian Novak and colleagues, with an educational star from [employer]. Thrive Questionnaire Date Thrive assessed: 05/28/24 I am a: Patient What is your living situation today?: I have a steady place to live Within the past 12 months, did the food you bought not last and you didn't have the money to get more?: Never true Within the past 12 months, did you worry whether your food would run out before you got money to buy more?: Never true Do you have trouble paying for medicines?: No Do you have trouble getting transportation to medical appointments?: No Do you have trouble paying your heating and electricity bill?: No Do you have trouble taking care of your child, family member or friend?: No Do you have trouble with day-to-day activities such as bathing, preparing meals, shopping, managing finances, etc.?: No Are you currently unemployed and looking for a job?: No Are you interested in more education?: No Please select the resources that you would like help with: None Currently or been in a relationship where the following occur: No concerns reported THRIVE Score: 0 AUDIT C Alcohol Use Questionnaire (AUDIT-C) 1. How often do you have a drink containing alcohol?: Never 3. How often do you have six or more drinks on one occasion?: Never Total Score: 0 Score Reviewed/Action Taken: Yes LIZETTE-7 AMB Questionnaire LIZETTE-7 Date LIZETTE - 7 assessed: 05/28/24 Feeling nervous, anxious, or on edge: 0 = Not at all Not being able to stop or control worryin = Not at all Worrying too much about different things: 0 = Not at all Trouble relaxin = Not at all Being so restless that it is hard to sit still: 0 = Not at all Becoming easily annoyed or irritable: 0 = Not at all Feeling afraid as if something awful might happen: 0 = Not at all Total LIZETTE-7 score (0-4 normal; 5-9 mild; 10-14 moderate; 15-21 severe): 0 Source: Developed by Drs. Gary Botello, Amanda Aguilar, Darrian Novak and colleagues, with an educational star from [employer]. LIZETTE-7 Assessment Billing LIZETTE-7 Assessment Tool: LIZETTE-7 Assessment 71963 Physical exam (Primary Care) Vital Signs: Last Vital Signs Temp 97.8 F 05/28/24 13:51 Pulse 57 05/28/24 13:51 BP 122/80 05/28/24 13:51 Pulse Ox 98 05/28/24 13:51 Oxygen Delivery Method Room Air 05/28/24 13:51 BMI result Body Mass Index 34.0 Tobacco/Smoking Status: Tobacco use Status Tobacco use date assessed 05/28/24 05/28/24 13:54 Patient Tobacco Use Status Never used Tobacco 05/28/24 13:54 e-Cigarette/Vaping Use Never Used 05/28/24 13:54 PHQ-9: PHQ-9 Score PHQ-9: Total score 0 05/28/24 13:57 Depression Screening Interpretation: Negative Thrive Assessment: Date of Thrive Assessment Date Thrive assessed 05/28/24 05/28/24 13:57 Currently or been in a relationship where the following occur: No concerns reported Coding Level of Care Code Est Pt Prev Care >65y(45517) Diagnoses Systolic murmur R01.1 Pre-op evaluation Z01.818 Additional Codes LIZETTE-7 Assessment Billing - LIZETTE-7 Assessment Tool: LIZETTE-7 Assessment [id number] ([id number]) PHQ-9 - 86349 - PHQ-9 Billing: Yes ([id number]) Assessment & Plan Assessment & Plan (1) Systolic murmur: Code(s): R01.1 - Cardiac murmur, unspecified Category: Medical (2) Pre-op evaluation: Code(s): Z01.818 - Encounter for other preprocedural examination Category: Medical Plan . Orders: Orders CA echo transthoracic complete Today R01.1 - Cardiac murmur, unspecified
== END 2024-05-28 15:24 | disposition home or self-care (01) ==
PROVIDERS: PCP Nurse Practitioner Family; Visit Provider Nurse Practitioner Family
DX: R01.1 Cardiac murmur, unspecified (principal); Z01.818 Encounter for other preprocedural examination

== ENCOUNTER → 2024-05-28 13:40 | Outpatient (BNVA) | payer MEDICARE, BC, SELFPAY | PROVIDERS: PCP Nurse Practitioner Family; Visit Provider Nurse Practitioner Family | DX: Z01.818 Encounter for other preprocedural examination (principal); R01.1 Cardiac murmur, unspecified | CPT/HCPCS: 96127; 99212 ==

== ENCOUNTER 2024-05-29 06:52 | Outpatient (REF) | payer MEDICARE, SELFPAY ==
[2024-05-29 08:55] LABS: Prostate Specific Antigen 2.21 ng/mL (<0.05-4.0)
== END 2024-05-29 06:53 | disposition home or self-care (01) ==
LOC: HO.LAB 06:52
PROVIDERS: PCP Nurse Practitioner Family; Visit Provider Nurse Practitioner Family
DX: N40.0 Benign prostatic hyperplasia without lower urinary tract symptoms (principal); Z12.5 Encounter for screening for malignant neoplasm of prostate
CPT/HCPCS: 36415; 84153

== ENCOUNTER 2024-06-02 12:40 | Outpatient (AMB) | payer MEDICARE, SELFPAY ==
--- NOTE | 2024-06-02 13:05 | A.OFFVIS_ITS ---
Intake Visit Reasons: 4 month follow-up with a PSA Intake Note: Patient presents today for follow up visit on: enlarged prostate, weak urinary stream, and PSA results PSA: 2.21 Urology Medications: tamsulosin, finasteride Blood Thinner: none PVR: 228ml's Carbon Furnace Operator Required: No Accompanied by: Self / Same As Patient Allergies No Known Allergies [No Known Allergies*] Allergy (Verified 06/02/24 13:39) Medication List - Last Reconciled 06/02/24 by VIOLETTE Key buprenorphine-naloxone 2-0.5 mg 0.25 - 0.5 film sublingual DAILY finasteride 5 mg PO DAILY 90 days ropinirole mg PO tamsulosin 0.8 mg (2 x 0.4 mg) PO BEDTIME 90 days HPI Comments Details: Mingo is a very pleasant 68-year-old male patient of Dr. Veronica. He has a past medical history of restless leg syndrome, central sleep apnea, i nsomnia, PE, and sinus bradycardia. He presents to the office today for follow- up of his lower urinary tract symptoms (weak urinary stream and urinary hesitancy). 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 He remains compliant with finasteride. Recent PSA results reviewed with the patient today as noted and trended below. Previous workup has included a retroperitoneal ultrasound 01/01 noting bilateral kidneys are normal in size, contour, and echogenicity. Right kidney with no renal calculi. Left kidney with linear echogenic area seen which can represent nonobstructing calculus. The bladder is well distended and normal. Bladder jets are demonstrated. Pre void bladder volume is 575 mL. Postvoid bladder volume is approximately 370 mL. Enlarged prostate measuring a proximally 59 mL. PSA: 09/30 3.3, 10/01 3.7, 06/02 2.2 He denies incontinence, nocturia, hematuria, dysuria, foul smelling urine, flank pain, fever, and or chills. We discussed at potential causes of lower urinary tract symptoms patient is experiencing. In office urinalysis results reviewed with the patient today PVR 228ml's. We discussed incomplete bladder emptying and restarting alpha blockers once cleared by ophthalmology. He otherwise offers no other issues or concerns at this time. Patient was informed and verbally consented to the use of an ambient scribe for clinic note documentation during this visit. Discussion Notes During the consultation, we discussed the patient?s benign prostatic hyperplasia management and the effects of recent cataract surgery on medication regimen. The reduction in PSA levels was emphasized as a positive indication of effective treatment. We reviewed the impact of medication cessation due to the surgery and the subsequent resumption of tamsulosin to manage urinary symptoms once cleared by ophthalmology. Follow-ups were discussed as vital to the ongoing monitoring and adjustment of the patient?s treatment. [facility] Medical History Central sleep apnea Insomnia Restless leg syndrome On anticoagulant therapy Pulmonary emboli Pulmonary embolism Sinus bradycardia Sleep apnea Restless leg Surgical History History of left knee replacement Hx of colonoscopy History of umbilical hernia repair Family History Father History of CVA (cerebrovascular accident) Diabetes mellitus Mother Diabetes mellitus Social History Household Members: Spouse Housing: House Are you a primary long term care social worker to a significant other at home: No Do you presently have visiting nurse or other home services: No Alcohol intake: current Alcohol intake frequency: a few times a month Patient Tobacco Use Status: Never used Tobacco e-Cigarette/Vaping Use: Never Used Second Hand Smoke Exposure: No service: No Current occupational status: retired Current occupation: right handed Cognitive needs: No Hearing needs: No Vision needs: No Review of Systems Const All systems reviewed & are unremarkable except as noted in HPI and below Eyes Reports as per HPI Physical Exam Const General: cooperative, healthy appearing, comfortable, no acute distress, well developed, alert and awake Nutritional Appearance: overweight Orientation/consciousness: patient oriented x3 Limitations: no limitations HEENT Head: Yes normal to inspection, Yes normocephalic and Yes atraumatic Ears: hearing grossly normal bilaterally Eyes General: appearance normal, both eyes and all related structures Neck Neck: Yes normal visual inspection and Yes trachea midline Chest Chest palpation & inspection: normal inspection of the chest Resp Effort & Inspection: normal respiratory effort and able to speak in complete s entences Cardio Rate: regular rate GI Inspection: Yes normal to inspection General: Yes no CVA tenderness Back/Spine/Pelvis Back: no CVA tenderness Skin General skin exam: no rashes or lesions noted Neuro General: patient oriented x3 Extrem General: Yes normal to inspection Psych Appearance: grossly normal and well kempt Mental Status: mental status grossly normal Speech and movement: Clear speech present Affect: normal affect Attitude: cooperative Thought process: Normal thought process present Thought content: Normal thought content present Insight: Fair insight present (Psych) Judgement: Fair judgement present (Psych) Office Procedures Post Void Residual Post Residual Void Post Void Residual (PVR): 228 [id number] Void Residual by ultrasound Results AMB Urinalysis, Automated UA Leukoctes 0 Lara/uL Last Edit by [employer] on 06/02/24 13:37 UA Nitrite Last Edit by [employer] on 06/02/24 13:37 UA Urobilinogen 0.2 mg/dL Last Edit by [employer] on 06/02/24 13:37 UA Protein 0 mg/dL Last Edit by [employer] on 06/02/24 13:37 UA pH 6.0 Last Edit by [employer] on 06/02/24 13:37 UA Blood 0 Arthur/uL Last Edit by [employer] on 06/02/24 13:37 UA Specific [place] 1.010 Last Edit by [employer] on 06/02/24 13:37 UA Ketone Last Edit by [employer] on 06/02/24 13:37 UA Bilirubin 0 mg/dL Last Edit by [employer] on 06/02/24 13:37 UA Glucose 0 mg/dL Last Edit by [employer] on 06/02/24 13:37 Assessment & Plan Assessment & Plan (1) Enlarged prostate: Code(s): N40.0 - Benign prostatic hyperplasia without lower urinary tract symptoms Category: Medical (2) Weak urinary stream: Code(s): R39.12 - Poor urinary stream Category: Medical (3) Lower urinary tract symptoms: Code(s): R39.9 - Unspecified symptoms and signs involving the genitourinary system Category: Medical (4) Incomplete bladder emptying: Code(s): R33.9 - Retention of urine, unspecified Category: Medical Plan In office urinalysis results reviewed with the patient today; as noted above. PVR 228 mL Continue Flomax and finasteride Recent PSA results reviewed with the patient today; as noted above. We discussed incomplete bladder emptying and risks of incomplete bladder emptying as well as further treatment options Will restart once able per ophthalmology as patient with recent cataract procedure and alpha-clarke has been on hold. He otherwise denies any bothersome urinary issues or concerns. He reports be happy with current voiding parameters. Follow-up in 6 months with PSA and PVR Orders: Orders AMB Post Void Residual by ultrasound Today R39.12 - Poor urinary stream AMB Urinalysis Automated Today Z13.9 - Encounter for screening, unspecified Patient Instructions: The patient had an opportunity to ask questions regarding the treatment plan. All questions were answered. Physical exam, labs, and imaging were discussed and reviewed in detail. As well as risks, benefits, and discussion of treatment choices. No major barriers to understanding were identified. The patient expressed understanding and agreement with the above treatment plan. The patient was made aware they should contact our office by phone for worsening of their current condition, the appearance of new symptoms, or with any questions or concerns. Compliance is encouraged with any medications and follow up testing that is ordered. It is a privilege to be allowed the opportunity to participate in? your urological care.? Again, if you have any questions or concerns If you have any questions or concerns please do not hesitate to contact me. The office is [phone]. This note is constructed using voice recognition software. While every effort has been made to ensure accuracy legal department manager errors may have been included. Yours sincerely, ENEDINA Key Coding Level of Care Code Est Pt Level 3 (63112) Diagnoses Enlarged prostate N40.0 Weak urinary stream R39.12 Lower urinary tract symptoms R39.9 Incomplete bladder emptying R33.9 CPT Codes Post Residual Void - PVR CPT Code: 18220-Jqdh Void Residual by ultrasound ([id number])
--- OUTSIDE RECORDS SUMMARY | 2024-06-02 15:25 | XMS_ITS | Continuity of Care Document ---
Author Organization [facility] Address [address] [place] [address] Phone Care Team Providers Care Maker Up Folding Name Role Phone Jac Guerin MD Unavailable [...] Procedures Procedure Date Office/outpatient visit,est, high Office/outpatient visit,[facility], [facility] 2020 X-ray exam of knee, 3 views Advance Directives Directive Yes / No Effective Date File Name No Information Encounters Encounter Description Practice Location Reason(s) For Visit Diagnoses Date Provider Providers Copied on Encounter [facility], [address], [place], [place], [id number], tel:[phone] [address] No Information Truong Nathan. [address], [facility] [address], [place], [place], [id number], [place]. tel:[phone] Referring Provider: Karina Reynoso, [address], [place], [address] . tel:[phone] Office/outpa tient visit,est, high [facility], [address], [place], [place], [id number], [place] tel:[phone] left knee pain (chief complaint) Left knee pain, unspecified chronicityArthr itis of knee, leftHistory of pulmonary embolismAnticoa gulation adequate 1 Truong Nathan. [address], [address], [place], [place], [address], [place]. tel:[phone] Referring Provider: Karina Reynoso, [address], [place], [address] . tel:[phone] Office/outpa tient visit,[facility], [address], [place], [place], [id number], [place] tel:[phone] left knee pain (chief complaint) Left knee pain, unspecified chronicityArthr itis of knee, left 1 Robinson Collins. [address], [address], [place], [place], [address], [place]. tel:[phone] Referring Provider: Karina Reynoso, [address], [place], [address] . tel:[phone] Family History Family Member Type Diagnosis Age At Onset No Information Payers Payer name Insurance type Covered alliance party ID Authorblanea tipanfilo(s) MEDICARE MB [id number] [facility] [id number] Social History Type Description Quantity Date Captured [...] Referred To: Lexus Garcia MD [address] [place], [phone] Ordered: Referrals: Lexus Garcia MD. Evaluate and [...] get a knee replacement back in in [place]. Patient has a history of PE and is currently taking Xarelto. He is currently taking Prednisone which is helping. His camera storage clerk cleared him. He comes in to discuss surgery here in [place]. He presents with pain on the left [...] left knee replacement in March 2021 in [facility]. Patient denies recent injury or [...] I reviewed his x-ray s. He has gyre-oo-vyiy changes in the medial compartment of the left knee. He has failed conservative treatment and wishes to proceed with total knee replacement. He was scheduled in September 2020 but had a pulmonary embolism and had to cancel. He is ready to proceed after 6 months of being on anticoagulation. He saw a sourcing consultant who told him he did not have any increased risk factors for pulmonary embolism and it is felt that the embolism occurred because of his driving down from [place]. I explained that a filter might be in order preoperatively. We will schedule this with Dr. Garcia. We will proceed with a left total knee replacement thereafter as an outpatient at [facility] for surgery. Risks including but [...]
--- OUTSIDE RECORDS SUMMARY | 2024-06-02 15:25 | XMS_ITS | Patient Health Record ---
Author Organization [facility] Address [address] [place] [address] Care Team Providers Care Chairman Ceo Name Role Phone ARAVIND OJEDA Primary Care Provider Bryson Ruggiero Jr [phone] Allergies No Known Allergies Reason For Referral No Information Medications Medication SIG (Take, Route, Frequency, Duration) Notes Start Date End Date Status MiraLax (colon prep) 17 GM/SCOOP mixed with Gatorade or Crystal Light Orally begin at 5:00 p.m. the day before the procedure for 1 day 08/08/2022 Active rOPINIRole HCl Activ e Xtampza ER 13.5 MG Oral for 30 Active Immunizations Vaccine Route Administration Date Status Comme nts Influenza Unknown 12/19/2021 Administered Problems Problem Type SNOMED Code ICD Code Onset Dates Problem Status W/U Status Risk Notes Problem Screening for malignant neoplasm of colon (382473489) Special screening for malignant neoplasms, colon (V76.51) Active confirmed Problem 274874411 Colon cancer screening (Z12.11) Active confirmed Problem 41272820 Encounter for other preprocedural examination (Z01.818) Active confirmed Plan Of Treatment Future Test Test Name Order Date COLONOSCOPY 05/04/2011 COLONOSCOPY 06/13/2016 COLONOSCOPY 08/08/2022 Insurance Providers Payer Name Payer Address Payer Phone Subscriber Number Group Number Insured Name Patient Relationship to Insured Coverage Start Date Coverage End Date MEDICARE OF [place] [address] [place] [address] [id number] CARTER BRADY Self - patient is the insured [employer] [place] [address] [place], [place] [id number] [phone] [id number] CARTER BRADY Self - patient is the insured Medical (General) History Medical History History ICD Code Restless leg syndrome Central sleep apnea Colon polyps, colonoscopy 08/25, five-yea r followup Surgical History Surgery Date(Month/Year) knee surgery left Umbilical hernia repair 04/29
== END 2024-06-02 13:34 | disposition home or self-care (01) ==
PROVIDERS: PCP Nurse Practitioner Family; Visit Provider Nurse Practitioner Family
DX: N40.0 Benign prostatic hyperplasia without lower urinary tract symptoms (principal); R39.12 Poor urinary stream; R39.9 Unspecified symptoms and signs involving the genitourinary system; R33.9 Retention of urine, unspecified; Z13.9 Encounter for screening, unspecified
CPT/HCPCS: 99213

== ENCOUNTER → 2024-06-02 12:40 | Outpatient (BNVA) | payer MEDICARE, BC, SELFPAY | PROVIDERS: PCP Nurse Practitioner Family; Visit Provider Nurse Practitioner Family | DX: N40.1 Benign prostatic hyperplasia with lower urinary tract symptoms (principal); R39.12 Poor urinary stream; R33.9 Retention of urine, unspecified; R39.9 Unspecified symptoms and signs involving the genitourinary system | CPT/HCPCS: 51798; 81003; 99212 ==

== ENCOUNTER 2024-06-05 10:16 | Outpatient (AMB) | payer MEDICARE, SELFPAY ==
--- NOTE | 2024-06-05 10:25 | MHC.OFFWIV ---
Intake Vital Signs 06/05/24 10:26 Weight 255 lb BP 140/90 H Blood Pressure Location Lt brachial Position Sitting Pulse 44 L Pulse Source Pulse Oximeter Pulse Oximetry (%) 98 Oxygen Delivery Method Room Air Intake Visit Reasons: EP Splinter? in LT foot Intake Note: Patient here for a foreign body in left foot that has been present for a while possibly. Patient Tobacco Use Status: Never used Tobacco Allergies No Known Allergies [No Known Allergies*] Allergy (Verified 06/05/24 10:26) Do you need a note to return to daycare/school/sports/work: No HPI HPI Comments History of Present Illness Details History of Present Illness - The patient is a 68-year-old male presenting with a sensation of a foreign body in the left foot. - He reports a duration of at least one month, with no specific recollection of an inciting incident. - The foreign body sensation is characterized by soreness without drainage, limiting activities such as gym exercises. - Attempts by the patient?s son and others to identify or remove the foreign body have been unsuccessful. - Tenderness is noted in the affected area and he can feel a slight lump in the area. - Epsom salt soaks have been used but are ineffective Physical Exam General: Cooperative, healthy appearing, comfortable, no acute distress and well developed Orientation: Patient oriented x3 Limitations: No limitations Head: Normal to inspection Ears: Hearing grossly normal bilaterally Nose: Normal External nose present Face and sinus: Normal facial exam Eyes: Appearance normal, both eyes and all related structures Neck: Normal visual inspection and Yes full ROM Respiratory: Normal respiratory effort and able to speak in complete sentences. Skin: No rashes or lesions noted Neuro: Patient oriented x3 Extremities: plantar aspect of left foot, distal 5th metatarsal area, slgiht TTP and small lump palpated, no visible foreign body, no drainage or erythema observed [facility] Medical History Central sleep apnea Insomnia Restless leg syndrome On anticoagulant therapy Pulmonary emboli Pulmonary embolism Sinus bradycardia Sleep apnea Restless leg Surgical History History of left knee replacement Hx of colonoscopy History of umbilical hernia repair Family History Father History of CVA (cerebrovascular accident) Diabetes mellitus Mother Diabetes mellitus Social History Household Members: Spouse Housing: House Are you a primary district manager primary care sales to a significant other at home: No Do you presently have visiting nurse or other home services: No Alcohol intake: current Alcohol intake frequency: a few times a month Patient Tobacco Use Status: Never used Tobacco e-Cigarette/Vaping Use: Never Used Second Hand Smoke Exposure: No service: No Current occupational status: retired Current occupation: right handed Cognitive needs: No Hearing needs: No Vision needs: No Review of Systems Const All systems reviewed & are unremarkable except as noted in HPI and below Physical Exam Vital Signs: Last Vital Signs Pulse 44 L 06/05/24 10:26 BP 140/90 H 06/05/24 10:26 Pulse Ox 98 06/05/24 10:26 Oxygen Delivery Method Room Air 06/05/24 10:26 Assessment & Plan Assessment & Plan (1) Foreign body in left foot: Code(s): S90.852A - Superficial foreign body, left foot, initial encounter Qualifiers: Encounter type: initial encounter Qualified Code(s): S90.852A - Superficial foreign body, left foot, initial encounter Plan: The plan includes obtaining an X-ray of the left foot to assist in identifying any foreign object not visible externally. Based on X-ray findings, further management may involve referral for surgical assessment if a foreign body is confirmed. Current use of Epsom salt soaks is not recommended due to the absence of an open wound. The patient is instructed to return to the examination room post-X-ray for further assessment and decision-making based on the imaging outcomes. Follow-up plans are contingent upon the findings from the radiographic evaluation. Left foot XR showed apparent FB. Message PCP for referral to Podiatry vs Gen Surg. Patient was informed and verbally consented to the use of an ambient scribe for clinic note documentation during this visit. Orders: Orders XR foot LT min 3V Today S90.852A - Superficial foreign body, left foot, initial encounter Coding Level of Care Code Est Pt Level 4 (41894) Diagnoses Foreign body in left foot, initial encounter S90.852A Encounter type: initial encounter
[2024-06-05 10:26] VITALS: BP 140/90; PULSE 44; O2SAT 98
== END 2024-06-05 11:06 | disposition home or self-care (01) ==
PROVIDERS: PCP Nurse Practitioner Family; Visit Provider Physician Assistant
DX: S90.852A Superficial foreign body, left foot, initial encounter (principal)

== ENCOUNTER 2024-06-05 10:16 | Outpatient (REF) | payer MEDICARE, SELFPAY ==
--- NOTE | ~2024-06-05 | XR_ITS ---
EXAMINATION: XR FOOT 3 OR MORE VIEWS LEFT HISTORY: S90.852A - Superficial foreign body, left foot, initial encounter COMPARISON: There are no prior studies available for comparison. FINDINGS: Three views of the left foot are submitted. Osseous mineralization is normal. There is no fracture or dislocation. 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 There is also moderate osteoarthritis of the tibiotalar joint. There is a small plantar calcaneal spur. No radiopaque foreign body is identified. XR/XR foot LT min 3V IMPRESSION: Degenerative changes of the 1st MTP joint and tibiotalar joint. No radiopaque foreign body is identified. Electronically signed by: Gary Petty MD 06/05/2024 11:02 AM EDT
== END 2024-06-05 10:17 | disposition home or self-care (01) ==
LOC: HO.HMGCX 10:16
PROVIDERS: PCP Nurse Practitioner Family; Visit Provider Physician Assistant
DX: S90.852A Superficial foreign body, left foot, initial encounter (principal)
CPT/HCPCS: 73630; 99212

== ENCOUNTER → 2024-06-05 10:48 | Outpatient (BNV) | payer MEDICARE, SELFPAY | PROVIDERS: PCP Nurse Practitioner Family; Visit Provider Radiology Diagnostic Radiology | DX: M19.072 Primary osteoarthritis, left ankle and foot (principal) | CPT/HCPCS: 73630 ==

== ENCOUNTER → 2024-06-09 07:54 | Outpatient (REF) | payer MEDICARE, SELFPAY ==
--- NOTE | 2024-06-09 07:56 | CA_ITS ---
Transthoracic Echocardiogram Patient (Last, First, Middle): Mingo Osei, Gender: Male Date of : 1955 Age: 68 Procedure Date: 06/09/2024 Procedure Type: Transthoracic Echocardiogram Location: OP Height: 182.88 cm Weight: 111.13 kg BSA: 2.32 m2 Heart Rate: bpm BP: 140 / 90 mmHg Paraffin Plant Sweater Operator: ROBIN Referring MD: Rahul Zhou [facility] Symptoms: R01.1 - Cardiac murmur, unspecified Study Quality: Adequate ECG Rhythm: Sinus Conclusions: - The left ventricular systolic function is normal. The calculated ejection fraction is 69% by biplane method. - The left atrium is moderately dilated. - No obvious valvular pathology seen on this study. Findings Left Ventricle Normal left ventricular cavity size. There is normal left ventricular wall thickness. The left ventricular systolic function is normal. The calculated ejection fraction is 69% by biplane method. There is no evidence of regional wall motion abnormalities. Diastolic function is normal for age. Right Ventricle Mildly increased right ventricular cavity size. There is normal right ventricular systolic function. Atria The left atrium is moderately dilated. The right atrium is mildly dilated. Aortic Valve There is a normal trileaflet aortic valve. There is no aortic valve stenosis. There is no aortic valve regurgitation. Mitral Valve There is mild mitral annular calcification. There is mild mitral valve regurgitation. There is no mitral valve stenosis. Pulmonic Valve The pulmonic valve is likely normal. Tricuspid Valve There is trace tricuspid valve regurgitation. There is no evidence of pulmonary hypertension. Great Vessels The asc aorta and aortic arch are normal in size. Venous The inferior vena cava is mildly dilated and collapses greater than 50% with inspiration. Pericardium/Pleural There is no evidence of pericardial effusion. Prior Study Comparison No significant change compared to prior study dated: 07/21/2018. Recommendations, Care & Conclusions No obvious valvular pathology seen on this study. Measurements 2D Linear Measurements IVSd: 0.98 0.6-0.9/0.6-1.0 cm LVIDd: 5.43 3.9-5.3/4.2-5.9 cm LVIDd Index: 2.34 2.4-3.2/2.2-3.1 cm/m2 LVIDs: 3.69 2.0-3.6 cm LVPWd: 0.87 0.7-1.1 cm LA Diam: 4.50 2.7-3.8/3.0-4.0 cm LAIDs Index: 1.94 1.5-2.3 cm/m2 LV Mass: 233.93 67-162/88-224 g LV Mass Index: 100.83 43-95/49-115 g/m2 LVOT Diam: 2.40 3.0+(-)1.3 cm 2D Systolic Function EF 4C: 68.20 >55% EF 2C: 69.20 >55% EF BiP: 68.50 >55% Mitral Valve MV Pk E: 1.06 MV PK A: 0.70 MV Decel Time: 289.00 E/A: 1.50 E'Lateral: 10.70 E'Medial: 7.94 E/E' Med: 13.40 E/E' Lat: 9.90 PHT: 85.00 MVA PHT: 2.59 Decel Ware: 3.68 Aortic Valve AoV Pk Paul: 1.70 AoV Mn Paul: 1.10 AoV VTI: 0.43 AoV Pk Grad: 12.00 Aov Mn Grad: 6.00 GREGORY Cont.VTI: 3.62 LVOT LVOT Pk Paul: 1.42 LVOT Mn Paul: 0.87 LVOT VTI: 0.34 LVOT Pk Grad: 8.00 LVOT Mn Grad: 4.00 LVOT Diam: 2.40 LVOT Area: 4.52 Diastolic Function MV Pk E: 1.06 MV Pk A: 0.70 E/A: 1.50 E'Medial: 7.94 E/E' Med: 13.40 E' Laterial: 10.70 E/E' Lat: 9.90 Right Ventricle TAPSE (mm): 27.00 TVS' Paul: 15.90 Tricuspid Valve TR Pk Paul: 2.57 TR Pk Grad: 26.00 RA Press: 8.00 RVSP: 34.00 Great Vessels Aorta Sinus of Valsalva: 4.05 2.0-3.[address] Ridge: 3.19 1.7-3.4 cm Ao Asc: 3.90 2.1-3.4 cm Ao Arch: 3.40 Updated in Other Vendor System with Status of Final Wyatt Lu MD electronically signed on 06/10/2024 3:36:02 PM with status of Final
--- OUTSIDE RECORDS SUMMARY | 2024-06-09 07:57 | XMS_ITS | Patient Health Record ---
Author Organization [facility] Address [address] [place] [address] Care Team Providers Care Security Compliance Specialist Name Role Phone ARAVIND OJEDA Primary Care Provider Bryson Ruggiero Jr [phone] Allergies No Known Allergies Reason For Referral [...] Problem Screening for malignant neoplasm of colon (633518862) Special screening for malignant neoplasms, colon (V76.51) Active confirmed Problem 613357396 Colon cancer screening (Z12.11) Active confirmed Problem 32614575 Encounter for other preprocedural examination (Z01.818) Active confirmed Plan Of Treatment Future Test Test Name Order Date COLONOSCOPY 05/04/2011 COLONOSCOPY 06/13/2016 COLONOSCOPY 08/08/2022 Insurance Providers Payer Name Payer Address Payer Phone Subscriber Number Group Number Insured Name Patient Relationship to Insured Coverage Start Date Coverage End Date MEDICARE OF [place] [address] [place] [address] [id number] CARTER BRADY Self - patient is the insured BLUE SHIELD OF [place] [address] [place], [place] [id number] [phone] [id number] CARTER BRADY Self - patient is the insured Medical (General) History Medical History History ICD Code Restless leg syndrome Central sleep apnea Colon polyps, colonoscopy 08/25, five-yea r followup Surgical History Surgery Date(Month/Year) knee surgery left Umbilical hernia repair 04/29
--- OUTSIDE RECORDS SUMMARY | 2024-06-09 07:57 | XMS_ITS | Continuity of Care Document ---
Author Organization [facility] Address [address] [place] [address] Phone Care Team Providers Care Restaurant Supervisor Name Role Phone Jac Guerin MD Unavailable [...] Procedures Procedure Date Office/outpatient visit,est, high Office/outpatient visit,new, Low 2020 X-ray exam of knee, 3 views Advance Directives Directive Yes / No Effective Date File Name No Information Encounters Encounter Description Practice Location Reason(s) For Visit Diagnoses Date Provider Providers Copied on Encounter [facility], [address], [place], [place], [id number], tel:[phone] [phone] No Information Truong Nathan. [address], [facility] [address], [place], [place], [id number], [place]. tel:[phone] Referring Provider: Karina Reynoso, [address], [place], [address] . tel:[phone] Office/outpa tient visit,est, high [facility], [address], [place], [place], [address], [place] tel:[phone] left knee pain (chief complaint) Left knee pain, unspecified chronicityArthr itis of knee, leftHistory of pulmonary embolismAnticoa gulation adequate 1 Truong Nathan. [address], [address], [place], [place], [address], [place]. tel:[phone] Referring Provider: Karina Reynoso, [address], [place], [address] . tel:[phone] Office/outpa tient visit,[facility], [address], [place], [place], [address], [place] tel:[phone] left knee pain (chief complaint) Left knee pain, unspecified chronicityArthr itis of knee, left 1 Robinson [place]. [address], [address], [place], [place], [address], [place]. tel:[phone] Referring Provider: Karina Reynoso, [address], [place], [address] . tel:[phone] Family History Family Member Type Diagnosis Age At Onset No Information Payers Payer name Insurance type Covered constitution party ID Authorblanea tipanfilo(s) MEDICARE MB [id number] [facility] [id number] Social History Type Description Quantity Date Captured [...] Referred To: Lexus Garcia MD [address] [place], [phone] Ordered: Referrals: Lexus Garcia MD. Evaluate and [...] currently taking Prednisone which is helping. His metal off bearer cleared him. He comes in to discuss surgery here in [place]. He presents with pain on the left [...] left knee replacement in March 2021 in [facility]. Patient denies recent injury or trauma to [...] I reviewed his x-ray s. He has [id number] changes in the medial compartment of the left knee. He has failed conservative treatment and wishes to proceed with total knee replacement. He was scheduled in September 2020 but had a pulmonary embolism and had to cancel. He is ready to proceed after 6 months of being on anticoagulation. He saw a director visual who told him he did not have any increased risk factors for pulmonary embolism and it is felt that the embolism occurred because of his driving down from [place]. I explained that a filter might be in order preoperatively. We will schedule this with Dr. Garcia. We will proceed with a left total knee replacement thereafter as an outpatient at [facility] for surgery. Risks including but not [...]
== END ==
LOC: HO.CARD 07:54
PROVIDERS: PCP Nurse Practitioner Family; Visit Provider Nurse Practitioner Family
DX: R01.1 Cardiac murmur, unspecified (principal)
CPT/HCPCS: 93306

== ENCOUNTER → 2024-06-09 07:56 | Outpatient (BNV) | payer MEDICARE, SELFPAY | PROVIDERS: PCP Nurse Practitioner Family; Visit Provider Internal Medicine | DX: I51.7 Cardiomegaly (principal); I34.0 Nonrheumatic mitral (valve) insufficiency | CPT/HCPCS: 93306 ==

== ENCOUNTER 2024-06-19 09:48 | Outpatient (AMB) | payer MEDICARE, SELFPAY ==
--- NOTE | 2024-06-19 09:52 | MHC.OFFWIV ---
Intake Vital Signs 06/19/24 09:54 Height 6 ft Weight 262 lb BMI 35.5 BP 124/86 Blood Pressure Location Lt brachial Position Sitting Pulse 51 Pulse Source Pulse Oximeter Temp 98.0 F Temp Source Oral Pulse Oximetry (%) 96 Oxygen Delivery Method Room Air Intake Visit Reasons: EP Nose concerns Intake Note: Pt presents to the office today for c/o red spots on his nose which bleed occasionally. Pt states he noticed it about 2 weeks ago. Patient Tobacco Use Status: Never used Tobacco Allergies No Known Allergies [No Known Allergies*] Allergy (Verified 06/19/24 09:56) HPI EP Nose concerns HPI Details This is a 68-year-old male patient who presents to the walk-in clinic today with a 2 week history of some areas on his nose that have been opening and bleeding. He does wear a CPAP (for many years) and thought this may be related, so he changed the mask, tubing, and water for CPAP recently without any change in skin symptoms. Denies itching, however areas are slightly tender. He would like referral to Derm if possible. [facility] Medical History Central sleep apnea Insomnia Restless leg syndrome On anticoagulant therapy Pulmonary emboli Pulmonary embolism Sinus bradycardia Sleep apnea Restless leg Surgical History History of left knee replacement Hx of colonoscopy History of umbilical hernia repair Family History Father History of CVA (cerebrovascular accident) Diabetes mellitus Mother Diabetes mellitus Social History Household Members: Spouse Housing: House Are you a primary career resource specialist to a significant other at home: No Do you presently have visiting nurse or other home services: No Alcohol intake: current Alcohol intake frequency: a few times a month Patient Tobacco Use Status: Never used Tobacco e-Cigarette/Vaping Use: Never Used Second Hand Smoke Exposure: No service: No Current occupational status: retired Current occupation: right handed Cognitive needs: No Hearing needs: No Vision needs: No Review of Systems Const All systems reviewed & are unremarkable except as noted in HPI and below Physical Exam Vital Signs: Last Vital Signs Temp 98.0 F 06/19/24 09:54 Pulse 51 06/19/24 09:54 BP 124/86 06/19/24 09:54 Pulse Ox 96 06/19/24 09:54 Oxygen Delivery Method Room Air 06/19/24 09:54 BMI result Body Mass Index 35.5 Const General: cooperative, healthy appearing, comfortable and no acute distress Limitations: no limitations HEENT Head: Yes normal to inspection Ears: hearing grossly normal bilaterally Resp Effort & Inspection: normal respiratory effort Skin Other: small erythematous areas on bridge and sides of nose. Small open area left side of bridge of nose. No drainage, however patient states this bleeds at times. Extrem General: Yes capillary refill normal and Yes no clubbing, cyanosis or edema Psych Appearance: grossly normal Mental Status: mental status grossly normal Speech and movement: Normal speech and movement present Assessment & Plan Assessment & Plan (1) Dermatitis, unspecified: Code(s): L30.9 - Dermatitis, unspecified Plan: Will start patient on a steroid cream for his nasal area. Advised to keep CPAP materials clean as usual. Derm referral to [facility] placed as requested by patient. Orders: Referrals Dermatology Referral L30.9 - Dermatitis, unspecified Medications: New hydrocortisone 1% 1 appl topical BID PRN 28.4 grams 1RF skin irritation L30.9 - Dermatitis, unspecified Coding Level of Care Code Est Pt Level 4 (10313) Diagnoses Dermatitis, unspecified L30.9
[2024-06-19 09:54] VITALS: BP 124/86; PULSE 51; TEMP 36.7; O2SAT 96; BMI 35.5
--- OUTSIDE RECORDS SUMMARY | 2024-06-19 10:24 | XMS_ITS | Patient Health Record ---
Author Organization [facility] Address [address] [place] [address] Care Team Providers Care Rotor Casting Machine Operator Name Role Phone ARAVIND OJEDA Primary Care Provider Bryson Ruggiero Jr Allergies No Known Allergies Reason For Referral [...] Problem Screening for malignant neoplasm of colon (905790935) Special screening for malignant neoplasms, colon (V76.51) Active confirmed Problem [id number] Colon cancer screening (Z12.11) Active confirmed Problem 83967362 Encounter for other preprocedural examination (Z01.818) Active confirmed Plan Of Treatment Future Test Test Name Order Date COLONOSCOPY 05/04/2011 COLONOSCOPY 06/13/2016 COLONOSCOPY 08/08/2022 Insurance Providers Payer Name Payer Address Payer Phone Subscriber Number Group Number Insured Name Patient Relationship to Insured Coverage Start Date Coverage End Date MEDICARE OF [place] [address] [place] [address] [id number] CARTER BRADY Self - patient is the insured BLUE SHIELD OF [place] [address] [place], [place] [id number] CARTER BRADY Self - patient is the insured Medical (General) History Medical History History ICD Code Restless leg syndrome Central sleep apnea Colon polyps, colonoscopy 08/25, five-yea r followup Surgical History Surgery Date(Month/Year) knee surgery left Umbilical hernia repair 04/29
--- OUTSIDE RECORDS SUMMARY | 2024-06-19 10:24 | XMS_ITS | Continuity of Care Document ---
Author Organization [facility] Address [address] [place] [address] Phone Care Team Providers Care Trailer Tank Truck Driver Name Role Phone Jac Guerin MD Unavailable [...] Date Provider Providers Copied on Encounter [facility], [address], [place], [place], [id number], tel:[phone] [phone] No Information Truong Nathan. [address], [facility] [address], [place], [place], [address], [place]. tel:[phone] Referring Provider: Karina Reynoso, [address], [place], [address] . tel:[phone] Office/outpa tient visit,est, high [facility], [address], [place], [place], [address], [place] tel:[phone] left knee pain (chief complaint) Left knee pain, unspecified chronicityArthr itis of knee, leftHistory of pulmonary embolismAnticoa gulation adequate 1 Truong Nathan. [address], [address], [place], [place], [address], [place]. tel:[phone] Referring Provider: Karina Reynoso, [address], [place], [address] . tel:[phone] Office/outpa tient visit,[facility], [address], [place], [place], [address], [place] tel:[phone] Walk-in left knee pain (chief complaint) Left knee pain, unspecified chronicityArthr itis of knee, left 1 Robinson [place]. [address], [address], [place], [place], [address], [place]. tel:[phone] Referring Provider: Karina Reynoso, [address], [place], [address] . tel:[phone] Family History Family Member Type Diagnosis Age At Onset No Information Payers Payer name Insurance type Covered libertarian ID Authorblanea tipanfilo(s) MEDICARE MB [id number] [facility] [id number] Social History Type Description Quantity Date Captured [...] Referred To: Lexus Garcia MD [address] [place], [phone] Ordered: Referrals: Lexus Garcia MD. Evaluate and [...] get a knee replacement back in in [place]. Patient has a history of PE and is currently taking Xarelto. He is currently taking Prednisone which is helping. His cotton farmworker cleared him. He comes in to discuss surgery here in [place]. He presents with pain on the left [...] left knee replacement in March 2021 in [facility]. Patient denies recent injury or trauma to [...] I reviewed his x-ray s. He has [id number] changes in the medial compartment of the left knee. He has failed conservative treatment and wishes to proceed with total knee replacement. He was scheduled in September 2020 but had a pulmonary embolism and had to cancel. He is ready to proceed after 6 months of being on anticoagulation. He saw a automation mechanic who told him he did not have any increased risk factors for pulmonary embolism and it is felt that the embolism occurred because of his driving down from [place]. I explained that a filter might be in order preoperatively. We will schedule this with Dr. Garcia. We will proceed with a left total knee replacement thereafter as an outpatient at [facility] for surgery. Risks including but not [...]
== END 2024-06-19 10:55 | disposition home or self-care (01) ==
PROVIDERS: PCP Nurse Practitioner Family; Visit Provider Nurse Practitioner Family
DX: L30.9 Dermatitis, unspecified (principal)

== ENCOUNTER → 2024-06-19 09:48 | Outpatient (BNVA) | payer MEDICARE, SELFPAY | PROVIDERS: PCP Nurse Practitioner Family | DX: L30.9 Dermatitis, unspecified (principal) | CPT/HCPCS: 99212 ==

== ENCOUNTER 2024-10-06 09:06 | Outpatient (AMB) | payer MEDICARE, SELFPAY ==
--- OUTSIDE RECORDS SUMMARY | 2024-09-08 04:30 | XMS_ITS ---
Author Organization [facility] [place] Address [address] [place] [address] Care Team Providers Care Biotech Production Specialist Name Role Phone Rahul Dangelo Primary Care Provider Unav Celina Rodríguez Unavailable [phone] Medications Medication SIG (Take, Route, Fr equency, [...] Negative Encounters Encounter Location Date Provider Diagnosis [facility] [address] [place] [address] 09/08/2024 Celina Sheikh Plan Of Treatment No Information Progress Notes * Mingo OSEIDOB:[birth year] (68 yo M)Acc No.[id number]:09/08/2024 Progress Notes Patient: Ramana Mingo LEONE Provider: Dolly Sheikh DPM :1955 A ge:68 Y S ex:Male Date:09/08/2024 Address:[address] [place] Pcp:Rahul Zhou DAG COATER-ERASMO Subjective: * Chief Complaints: * * ROS: [...] enies. C ardiovascular: Pacemaker d enies. M ENGINEERING LIBRARIAN d enies. W PW d enies. C [...] Pending * Provider: Dolly Sheikh DPM Date: 09/08/2024 Generated for Jelena corea/Luz Maria/Kassidy on: 10/06/2024 09:31 AM EDT
--- NOTE | 2024-10-06 09:20 | MHC.PC.OV ---
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 Accompanied by: Self / Same As Patient Allergies No Known Allergies (No Known Allergies*) Allergy (Verified 10/06/24 09:45) Medication List - Last Reconciled 10/06/24 [facility] buprenorphine-naloxone 2-0.5 mg 0.25 - 0.5 film sublingual DAILY finasteride 5 mg PO DAILY 90 days tamsulosin 0.8 mg (2 x 0.4 mg) PO BEDTIME 90 days Tobacco use date assessed: 05/28/24 Fall risk assessment: No Falls in past year Last assessed Fall Risk: 10/06/24 Dental Screening Dental Screen Date: 05/28/24 HPI Annual PE HPI Details History of Present Illness The patient is a 68-year-old male presenting with a physical examination. He denies any chest pain, shortness of breath, abdominal pain, blood in stool, constipation, diarrhea, suicidal ideation, or homicidal ideation. He has a history of restless leg syndrome for which he is on Suboxone and sees a specialist in [place]. He reports doing well overall with this condition. The patient has been diagnosed with bradycardia and has been evaluated by cardiology in the past. He reports feeling great with no dizziness, chest pain, headaches, or blurred vision. He has a history of varicose veins in bilateral extremities and has previously undergone vein stripping. There is some slight swelling in the right lower extremity, with trace swelling in the left, more pronounced on the right. The patient regularly sees a urologist for benign prostatic hyperplasia. His colon cancer screening is up to date. Health Maintenance - Colon cancer screening is up to date Social History Review of Systems - Cardiovascular: Denies chest pain or dizziness - Respiratory: Denies shortness of breath - Gastrointestinal: Denies abdominal pain, blood in stool, constipation, or diarrhea - Neurological: Denies headaches or blurred vision - Psychiatric: Denies suicidal or homicidal ideation Physical Exam General: Cooperative, healthy appearing, comfortable, no acute distress and well developed Orientation: Patient oriented x3 Limitations: No limitations Head: Normal to inspection Ears: Hearing grossly normal bilaterally Nose: Normal external nose present Face and sinus: Normal facial exam Eyes: Appearance normal, both eyes and all related structures Neck: Normal visual inspection and Yes full ROM Respiratory: Normal respiratory effort and able to speak in complete sentences. Clear to auscultation bilaterally Cardiovascular: Bradycardic on exam. Normal S1 and S2 GI: Normal to inspection. Soft to palpation and nontender : Testicles without masses/lesions and no hernias appreciated Skin: No rashes or lesions noted, extensive varicose veins to BLE. Neuro: Patient oriented x3 Extremities: Slight swelling to right lower extremity. Trace swelling to left lower extremity, more so to the right side than the left side. Normal to inspection Results Plan The patient will continue to manage restless leg syndrome with Suboxone under the care of a specialist in [place]. He is encouraged to maintain regular follow-ups with his urologist for benign prostatic hyperplasia and ensure his colon cancer screenings remain up to date. The patient is advised to monitor for any changes in his cardiovascular symptoms, given his history of bradycardia, and to seek medical attention if symptoms such as dizziness or chest pain develop. He is also encouraged to follow up with a vascular specialist if swelling in the lower extremities persists or worsens. Routine laboratory tests are recommended in the near future, and a follow-up appointment is scheduled for six months. Patient was informed and verbally consented to the use of an ambient scribe for clinic note documentation during this visit. Discussion Notes I discussed with the patient the importance of continuing his current management for restless leg syndrome and maintaining regular follow-ups with his specialists. We reviewed the need for ongoing monitoring of his cardiovascular health due to bradycardia and the potential need for further vascular evaluation if symptoms persist. Routine lab work was recommended, and a follow-up visit was scheduled for six months to reassess his overall health status. Patient Instructions - Continue taking Suboxone as prescribed for restless leg syndrome. - Follow up with your urologist regularly for prostate health. - Monitor for any new cardiovascular symptoms and seek medical attention if they occur. - Schedule an appointment with a vascular specialist if leg swelling worsens, varicose veins worsen. - Get routine lab tests done soon and return for a follow-up in six months. [facility] Medical History Central sleep apnea Insomnia Restless leg syndrome On anticoagulant therapy Pulmonary emboli Pulmonary embolism Sinus bradycardia Sleep apnea Restless leg Surgical History History of left knee replacement Hx of colonoscopy History of umbilical hernia repair Family History Father History of CVA (cerebrovascular accident) Diabetes mellitus Mother Diabetes mellitus Social History Household Members: Spouse Housing: House Are you a primary campground caretaker to a significant other at home: No Do you presently have visiting nurse or other home services: No Alcohol intake: current Alcohol intake frequency: a few times a month Patient Tobacco Use Status: Never used Tobacco e-Cigarette/Vaping Use: Never Used Second Hand Smoke Exposure: No service: No Current occupational status: retired Current occupation: right handed Cognitive needs: No Hearing needs: No Vision needs: No Questionnaire Thrive Questionnaire Date Thrive assessed: 10/06/24 I am a: Patient What is your living situation today?: I have a steady place to live Within the past 12 months, did the food you bought not last and you didn't have the money to get more?: Never true Within the past 12 months, did you worry whether your food would run out before you got money to buy more?: Never true Do you have trouble paying for medicines?: No Do you have trouble getting transportation to medical appointments?: No Do you have trouble paying your heating and electricity bill?: No Do you have trouble taking care of your child, family member or friend?: No Do you have trouble with day-to-day activities such as bathing, preparing meals, shopping, managing finances, etc.?: No Are you currently unemployed and looking for a job?: No Are you interested in more education?: No Please select the resources that you would like help with: None Currently or been in a relationship where the following occur: No concerns reported THRIVE Score: 0 LIZETTE-7 AMB Questionnaire LIZETTE-7 Date ILZETTE - 7 assessed: 05/28/24 Source: Developed by Drs. Gary Botello, Amanda Aguilar, Darrian Novak and colleagues, with an educational star from [employer]. Physical exam (Primary Care) Vital Signs: Last Vital Signs Pulse 53 10/06/24 09:21 BP 126/74 10/06/24 09:21 Pulse Ox 97 10/06/24 09:21 Oxygen Delivery Method Room Air 10/06/24 09:21 BMI result Body Mass Index 34.5 Tobacco/Smoking Status: Tobacco use Status Tobacco use date assessed 05/28/24 10/06/24 09:23 Patient Tobacco Use Status Never used Tobacco 10/06/24 09:23 e-Cigarette/Vaping Use Never Used 10/06/24 09:23 Thrive Assessment: Date of Thrive Assessment Date Thrive assessed 10/06/24 10/06/24 09:23 Currently or been in a relationship where the following occur: No concerns reported Coding Level of Care Code Est Pt Prev Care >65y(18309) Diagnoses Physical exam Z00. RLS (restless legs syndrome) G25.81 Enlarged prostate N40.0 Varicose veins of right lower extremity with inflammation I83.11 Assessment & Plan Assessment & Plan (1) Physical exam: Code(s): Z00.00 - Encounter for general adult medical examination without abnormal findings Category: Medical (2) RLS (restless legs syndrome): Code(s): G25.81 - Restless legs syndrome Category: Medical (3) Enlarged prostate: Code(s): N40.0 - Benign prostatic hyperplasia without lower urinary tract symptoms Category: Medical (4) Varicose veins of right lower extremity with inflammation: Comment: 08/10/2022 - right great saphenous vein Radiofrequency ablation 11/23/2022 - right leg microphlebectomy Code(s): I83.11 - Varicose veins of right lower extremity with inflammation Category: Medical Plan . Orders: Orders Complete Blood Count Auto Diff Today Z00.00 - Encounter for general adult medical examination without abnormal findings UA CC w/rflx Micro + Cult Today Z00.00 - Encounter for general adult medical examination without abnormal findings Comprehensive [place]. Panel Fast Today Z00.00 - Encounter for general adult medical examination without abnormal findings TSH reflex Free T4 Today Z00.00 - Encounter for general adult medical examination without abnormal findings Lipid Panel Today Z00.00 - Encounter for general adult medical examination without abnormal findings
[2024-10-06 09:21] VITALS: BP 126/74; PULSE 53; O2SAT 97; BMI 34.5
--- OUTSIDE RECORDS SUMMARY | 2024-10-06 09:32 | XMS_ITS | Patient Health Record ---
Author Organization [facility] Address [address] [place] [address] Care Team Providers Care Vocational Training Teacher Name Role Phone ARAVIND OJEDA Primary Care [...] Problem Screening for malignant neoplasm of colon (185724232) Special screening for malignant neoplasms, colon (V76.51) Active confirmed Problem [id number] Colon cancer screening (Z12.11) Active confirmed Problem [id number] Encounter for other preprocedural examination (Z01.818) Active confirmed Plan Of Treatment Future Test Test Name Order Date COLONOSCOPY 05/04/2011 COLONOSCOPY 06/13/2016 COLONOSCOPY 08/08/2022 Insurance Providers Payer Name Payer Address Payer Phone Subscriber Number Group Number Insured Name Patient Relationship to Insured Coverage Start Date Coverage End Date MEDICARE OF [place] [address] [place] [address] [id number] CARTER BRADY Self - patient is the insured [place] [address] [place], [place] [id number] [phone] [id number] CARTER BRADY Self - patient is the insured Medical (General) History Medical History History ICD Code Restless leg syndrome Central sleep apnea Colon polyps, colonoscopy 08/25, five-yea r followup Surgical History Surgery Date(Month/Year) knee surgery left Umbilical hernia repair 04/29
== END 2024-10-06 09:55 | disposition home or self-care (01) ==
PROVIDERS: PCP Nurse Practitioner Family; Visit Provider Nurse Practitioner Family
DX: Z00.00 Encounter for general adult medical examination without abnormal findings (principal); G25.81 Restless legs syndrome; N40.0 Benign prostatic hyperplasia without lower urinary tract symptoms; I83.11 Varicose veins of right lower extremity with inflammation

== ENCOUNTER → 2024-10-06 09:06 | Outpatient (BNVA) | payer MEDICARE, BC, SELFPAY | PROVIDERS: PCP Nurse Practitioner Family; Visit Provider Nurse Practitioner Family | DX: Z00.00 Encounter for general adult medical examination without abnormal findings (principal); G25.81 Restless legs syndrome; N40.0 Benign prostatic hyperplasia without lower urinary tract symptoms; I83.11 Varicose veins of right lower extremity with inflammation | CPT/HCPCS: 99397 ==

== ENCOUNTER 2024-12-02 06:50 | Outpatient (REF) | payer MEDICARE, SELFPAY ==
--- OUTSIDE RECORDS SUMMARY | 2021-01-12 09:14 | XMS_ITS | Continuity of Care Document ---
Author Organization [facility] Address [address] [place] [address] Phone Care Team Providers Care Clinical Trials Nurse Name Role Phone Jac Guerin MD Unavailable [...] Procedures Procedure Date Office/outpatient visit,est, high Office[facility]outpatient visit,[facility] 2020 X-ray exam of knee, 3 views Advance Directives Directive Yes / No Effective Date File Name No Information Encounters Encounter Description Practice Location Reason(s) For Visit Diagnoses Date Provider Providers Copied on Encounter [facility], [address], [place], [place], [id number], tel:[phone] [address] No Information Truong Nathan. [address], [address], [place], [place], [id number], [place]. tel:[phone] Referring Provider: Karina Reynoso, [address], [place], [address] . tel:[phone] Office/outpa tient visit,est, high [facility], [address], [place], [place], [address], [place] tel:[phone] left knee pain (chief complaint) Left knee pain, unspecified chronicityArthr itis of knee, leftHistory of pulmonary embolismAnticoa gulation adequate 1 Truong Nathan. [address], [address], [place], [place], [address], [place]. tel:[phone] Referring Provider: Karina Reynoso, [address], [place], [address] . tel:[phone] Office/outpa tient visit,[facility], [address], [place], [place], [address], [place] tel:[phone] left knee pain (chief complaint) Left knee pain, unspecified chronicityArthr itis of knee, left 1 Robinson Collins. [address], [address], [place], [place], [address], [place]. tel:[phone] Referring Provider: Karina Reynoso, [address], [place], [address] . tel:[phone] Family History Family Member Type Diagnosis Age At Onset No Information Payers Payer name Insurance type Covered constitution party ID Authorblanea tipanfilo(s) MEDICARE MB [id number] [facility] [id number] Social History Type Description Quantity Date Captured [...] Referred To: Lexus Garcia MD [address] [place], [phone] Ordered: Referrals: Lexus Garcia MD. Evaluate and [...] get a knee replacement back in in [place]. Patient has a history of PE and is currently taking Xarelto. He is currently taking Prednisone which is helping. His pcas cleared him. He comes in to discuss surgery here in [place]. He presents with pain on the left [...] left knee replacement in March 2021 in [facility]. Patient denies recent injury or trauma to [...] I reviewed his x-ray s. He has zijh-pb-[id number] changes in the medial compartment of the left knee. He has failed conservative treatment and wishes to proceed with total knee replacement. He was scheduled in September 2020 but had a pulmonary embolism and had to cancel. He is ready to proceed after 6 months of being on anticoagulation. He saw a computer bookkeeper who told him he did not have any increased risk factors for pulmonary embolism and it is felt that the embolism occurred because of his driving down from [place]. I explained that a filter might be in order preoperatively. We will schedule this with Dr. Garcia. We will proceed with a left total knee replacement thereafter as an outpatient at [facility] for surgery. Risks including but not limited to infection, DVT, stiffness, clicking and swelling were all discussed. All of his questions were addressed and answered. We will use persona implant. Related to Arthritis of knee, left I offered the mnauel ba a medrol dose pack for pain. Encourage him to continue ice prn. I will arrange for him to f/u with Dr. Guerin to discuss possible TKA scheduling for March. Related to Arthritis of knee, left Assessments Type Assessment Date No Information Patient Care Teams Name Effective Dates (start - stop) Status Members No Information
--- OUTSIDE RECORDS SUMMARY | 2024-09-08 04:30 | XMS_ITS ---
Author Organization [facility] [place] Address [address] [place] [address] Care Team Providers Care Claim Specialist Name Role Phone Rahul Dangelo Primary Care Provider Unav Celina Rodríguez Unavailable [phone] Medications Medication SIG (Take, Route, Fr equency, [...] Negative Encounters Encounter Location Date Provider Diagnosis [facility] [address] [place] [address] 09/08/2024 Celina Sheikh Plan Of Treatment No Information Progress Notes * Mingo OSEIDOB:[birth year] (69 yo M)Acc No.[id number]:09/08/2024 Progress Notes Patient: Ramana Mingo LEONE Provider: Dolly Sheikh DPM :1955 A ge:68 Y S ex:Male Date:09/08/2024 Address:[address] [place] Pcp:Rahul Zhou DOLL DRESSER-ERASMO Subjective: * Chief Complaints: * * ROS: [...] enies. C ardiovascular: Pacemaker d enies. M FIFTH HAND d enies. W PW d enies. C [...] 09/08/2024 Generated for Jelena corea/Luz Maria/Kassidy on: 0 12/02/2024 06:54 AM EDT
--- OUTSIDE RECORDS SUMMARY | 2024-12-02 06:54 | XMS_ITS | Patient Health Record ---
[facility] juliana Mcintosh Address [address] [place] [address] Care Team Providers Care Transportation Inspector Name Role Phone Rahul Dangelo Primary Care Provider Unav ailCelina Camargo Unavailable [phone] Reason For Referral No Information Medications Medication SIG (Take, Route, Fr equency, [...] Negative Encounters Encounter Location Date [facility] [place] [address] [place] [address] [facility] [address] [place] [address] 09/08/2024 Celina Sheikh Plan Of Treatment No Information Insurance Providers Payer Name Payer Address Payer Phone Subscriber Number Group Number Insured Name Patient Relationship to Insured Coverage Start Date Coverage End Date Medicare National Govt [facility] [address] [place] [address] [phone] [id number] Mingo Osie Self - patient is the insured [employer] [address] [place] [address] [id number] Mingo Osei Self - patient is the insured Medical (General) History Medical History History ICD Code Cataracts Joint implants/screws Restless Leg Syndrome
--- OUTSIDE RECORDS SUMMARY | 2024-12-02 06:54 | XMS_ITS | Patient Health Record ---
Author Organization [facility] Address [address] [place] [address] Care Team Providers Care Roundsman Name Role Phone ARAVIND OJEDA Primary Care Provider Bryson Ruggiero Jr [phone] Allergies No Known Allergies Reason For Referral [...] Problem Screening for malignant neoplasm of colon (796260691) Special screening for malignant neoplasms, colon (V76.51) Active confirmed Problem [id number] Colon cancer screening (Z12.11) Active confirmed Problem 20252888 Encounter for other preprocedural examination (Z01.818) Active confirmed Plan Of Treatment Future Test Test Name Order Date COLONOSCOPY 05/04/2011 COLONOSCOPY 06/13/2016 COLONOSCOPY 08/08/2022 Insurance Providers Payer Name Payer Address Payer Phone Subscriber Number Group Number Insured Name Patient Relationship to Insured Coverage Start Date Coverage End Date MED[place]ARE OF [place] [address] [place] [address] [phone] [id number] CARTER BRADY Self - patient is the insured [employer] [place] [address] [place], [place] [id number] CARTER BRADY Self - patient is the insured Medical (General) History Medical History History ICD Code Restless leg syndrome Central sleep apnea Colon polyps, colonoscopy 08/25, five-yea r followup Surgical History Surgery Date(Month/Year) knee surgery left Umbilical hernia repair 04/29
[2024-12-02 07:11] LABS: MANUAL DIFF FLAG NO
[2024-12-02 07:45] LABS: Hematocrit 44.1 % (42.0-52.0); Hemoglobin 14.7 g/dl (14.0-18.0); Imm Gran Abs Auto 0.01 X10*3/uL (0.00-0.03); Imm Gran Pct Auto 0.2 % (0.0-0.4); Lymphocytes Absolute Auto 2.2 X10*3/uL (1.2-4.9); Mean Corpuscular HGB Conc 33.3 g/dl (31.0-36.0); Mean Corpuscular Hemoglobin 29.8 pg (27.0-33.0); Mean Corpuscular Volume 89.5 fL (80.0-98.0); NRBC Abs Auto 0.000 X10*3/uL (0.0-0.012); NRBC Pct Auto 0.0 /100WBC (0.0-0.2); Platelet Count 175 X10*3/uL (160-400); Red Blood Count 4.93 X10*6/uL (4.60-5.80); White Blood Count 5.5 X10*3/uL (4.8-10.8)
[2024-12-02 08:13] LABS: Appearance Urine Clear; Glucose Urine UA Negative (Negative); PH 5.5 (5.0-9.0); Specific Gravity - Urine 1.020 (1.005-1.025)
[2024-12-02 08:15] LABS: Alanine Aminotransferase 19 U/L (0-40); Albumin Level 4.2 g/dL (3.5-5.0); Alkaline Phosphatase 54 U/L (39-117); Anion Gap 11 (12-20); Aspartate Amino Transferase 17 U/L (5-37); Blood Urea Nitrogen 25 mg/dL (9-16); Calcium 9.3 mg/dL (8.4-10.2); Carbon Dioxide 31 mmol/L (22-29); Chloride 106 mmol/L (96-108); Cholesterol 188 mg/dL (<200); Estimated Glomerular Filt Rate > 60; HDL Cholesterol 52 mg/dL (>40); Potassium 4.9 mmol/L (3.3-5.1); Sodium 143 mmol/L (135-145); Total Protein 6.7 g/dL (6.5-8.0); Triglycerides 71 mg/dL (<150)
[2024-12-02 08:16] LABS: Prostate Specific Antigen 2.16 ng/mL (<0.05-4.0)
== END 2024-12-02 06:51 | disposition home or self-care (01) ==
LOC: HO.LAB 06:50
PROVIDERS: PCP Nurse Practitioner Family; Visit Provider Nurse Practitioner Family
DX: Z00.00 Encounter for general adult medical examination without abnormal findings (principal); Z12.5 Encounter for screening for malignant neoplasm of prostate; Z13.29 Encounter for screening for other suspected endocrine disorder; Z13.6 Encounter for screening for cardiovascular disorders; N40.0 Benign prostatic hyperplasia without lower urinary tract symptoms
CPT/HCPCS: 36415; 51798; 80053; 80061; 81003; 84153; 84443; 85025; 99212

== ENCOUNTER 2024-12-02 10:29 | Outpatient (AMB) | payer MEDICARE, SELFPAY ==
--- NOTE | 2024-12-02 10:32 | MHC.OFFVIS ---
Intake Visit Reasons: 6m/PSA/PVR Intake Note: Patient is present for 6M/PSA/PVR Urology Medication:TAMSULOSIN,FINASTERIDE Antibiotic Allergy:NONE Blood Thinner:NONE Last PVR:228ML'S Todays PVR:0ML'S Cosmetic Surgeon Required: No Allergies No Known Allergies (No Known Allergies*) Allergy (Verified 12/02/24 10:32) HPI Comments Details: Mingo is a very pleasant 69-year-old male patient of Dr. Veronica. He has a past medical history of restless leg syndrome, central sleep apnea, insomnia, PE, and sinus bradycardia. He presents to the office today for follow-up of his lower urinary tract symptoms (weak urinary stream and urinary hesitancy). In discussion with the patient today he reports to be doing and feeling well. He denies having had any bothersome urinary issues or concerns since his last office visit here. He reports compliance with tamsulosin and finasteride as prescribed. He discusses how helpful this has been in treatment of his weak urinary stream he had previously been experiencing. Previous workup has included a retroperitoneal ultrasound 01/01 noting bilateral kidneys are normal in size, contour, and echogenicity. Right kidney with no renal calculi. Left kidney with linear echogenic area seen which can represent nonobstructing calculus. The bladder is well distended and normal. Bladder jets are demonstrated. Pre void bladder volume is 575 mL. Postvoid bladder volume is approximately 370 mL. Enlarged prostate measuring approximately 59 mL. PSA: 09/30 3.3, 10/01 3.7, 06/02 2.2, 12/03 2.2 He denies incontinence, nocturia, hematuria, dysuria, foul smelling urine, flank pain, fever, and or chills. We discussed at potential causes of lower urinary tract symptoms patient is experiencing. We did discussed further treatment options to include in office cystoscopy for potential surgical intervention however patient would like to continue with medical management at this time as he does feel he is doing well. In office urinalysis results reviewed with the patient today PVR 0ml's. He otherwise offers no other issues or concerns at this time. [facility] Medical History Central sleep apnea Insomnia Restless leg syndrome On anticoagulant therapy Pulmonary emboli Pulmonary embolism Sinus bradycardia Sleep apnea Restless leg Surgical History History of left knee replacement Hx of colonoscopy History of umbilical hernia repair Family History Father History of CVA (cerebrovascular accident) Diabetes mellitus Mother Diabetes mellitus Social History Household Members: Spouse Housing: House Are you a primary career development specialist to a significant other at home: No Do you presently have visiting nurse or other home services: No Alcohol intake: current Alcohol intake frequency: a few times a month Patient Tobacco Use Status: Never used Tobacco e-Cigarette/Vaping Use: Never Used Second Hand Smoke Exposure: No service: No Current occupational status: retired Current occupation: right handed Cognitive needs: No Hearing needs: No Vision needs: No Review of Systems Const All systems reviewed & are unremarkable except as noted in HPI and below Physical Exam Const General: cooperative, healthy appearing, comfortable, no acute distress, well developed, alert and awake Nutritional Appearance: overweight Orientation/consciousness: patient oriented x3 Limitations: no limitations HEENT Head: Yes normal to inspection, Yes normocephalic and Yes atraumatic Ears: hearing grossly normal bilaterally Eyes General: appearance normal, both eyes and all related structures Neck Neck: Yes normal visual inspection and Yes trachea midline Chest Chest palpation & inspection: normal inspection of the chest Resp Effort & Inspection: normal respiratory effort and able to speak in complete sentences Cardio Rate: regular rate GI Inspection: Yes normal to inspection General: Yes no CVA tenderness Back/Spine/Pelvis Back: no CVA tenderness Skin General skin exam: no rashes or lesions noted Neuro General: patient oriented x3 Extrem General: Yes normal to inspection Psych Appearance: grossly normal and well kempt Mental Status: mental status grossly normal Speech and movement: Clear speech present Affect: normal affect Attitude: cooperative Thought process: Normal thought process present Thought content: Normal thought content present Insight: Fair insight present (Psych) Judgement: Fair judgement present (Psych) Office Procedures Post Void Residual Post Residual Void Post Void Residual (PVR): 0 49307-Egct Void Residual by ultrasound Results AMB Urinalysis, Automated UA Leukoctes 0 Lara/uL Last Edit by Vanesa Quijano [facility] on 12/02/24 10:43 UA Nitrite Negative Last Edit by Vanesa Quijano [facility] on 12/02/24 10:43 UA Urobilinogen 0.2 mg/dL Last Edit by Vanesa Quijano [facility] on 12/02/24 10:43 UA Protein 0 mg/dL Last Edit by Vanesa Quijano [facility] on 12/02/24 10:43 UA pH 6.0 Last Edit by Vanesa Quijano [facility] on 12/02/24 10:43 UA Blood 0 Arthur/uL Last Edit by Vanesa Quijano [facility] on 12/02/24 10:43 UA Specific [place] 1.020 Last Edit by Vanesa Quijano [facility] on 12/02/24 10:43 UA Ketone Negative Last Edit by Vanesa Quijano [facility] on 12/02/24 10:43 UA Bilirubin 0 mg/dL Last Edit by Vanesa Quijano [facility] on 12/02/24 10:43 UA Glucose 0 mg/dL Last Edit by Vanesa Quijano [facility] on 12/02/24 10:43 Results Reviewed Results Reviewed: Laboratory Last Values Urine pH (Auto) 6.0 12/02/24 10:34 Specific [place] (Auto) 1.020 12/02/24 10:34 Urine Protein (Auto) 0 mg/dL 12/02/24 10:34 Glucose (UA)(Auto) 0 mg/dL 12/02/24 10:34 Urine Ketones (Auto) Negative 12/02/24 10:34 Urine Blood (Auto) 0 Arthur/uL 12/02/24 10:34 Urine Nitrite (Auto) Negative 12/02/24 10:34 Urine Bilirubin (Auto) 0 mg/dL 12/02/24 10:34 Urine Urobilinogen (Auto) 0.2 mg/dL 12/02/24 10:34 Leukocyte Esterase (Auto) 0 Lara/uL 12/02/24 10:34 Assessment & Plan Assessment & Plan (1) Weak urinary stream: Code(s): R39.12 - Poor urinary stream Category: Medical (2) Lower urinary tract symptoms: Code(s): R39.9 - Unspecified symptoms and signs involving the genitourinary system Category: Medical (3) Incomplete bladder emptying: Code(s): R33.9 - Retention of urine, unspecified Category: Medical (4) Enlarged prostate: Code(s): N40.0 - Benign prostatic hyperplasia without lower urinary tract symptoms Category: Medical Plan In office urinalysis results reviewed with the patient today; as noted above. PVR 0 mL. Continue Flomax and finasteride as prescribed. Patient reports be happy with current voiding parameters. He currently denies any bothersome urinary issues or concerns. Recent PSA results reviewed with the patient today; as noted above. Will continue with surveillance monitoring. Will obtain PSA in 1 year. Follow-up in 1 year with PSA and PVR; or sooner with any issues, concerns, and or questions. Orders: Orders AMB Urinalysis Automated Today Z13.9 - Encounter for screening, unspecified Prostate Specific Antigen 1 Year N40.0 - Benign prostatic hyperplasia without lower urinary tract symptoms Medications: Refilled finasteride 5 mg PO DAILY 90 tabs 3RF 90 days N32.0 - Bladder-neck obstruction tamsulosin 0.8 mg (2 x 0.4 mg) PO BEDTIME 180 caps 3RF 90 days N40.1 - Benign prostatic hyperplasia with lower urinary tract symptoms, R35.1 - Nocturia Patient Instructions: The patient had an opportunity to ask questions regarding the treatment plan. All questions were answered. Physical exam, labs, and imaging were discussed and reviewed in detail. As well as risks, benefits, and discussion of treatment choices. No major barriers to understanding were identified. The patient expressed understanding and agreement with the above treatment plan. The patient was made aware they should contact our office by phone for worsening of their current condition, the appearance of new symptoms, or with any questions or concerns. Compliance is encouraged with any medications and follow up testing that is ordered. It is a privilege to be allowed the opportunity to participate in? your urological care.? Again, if you have any questions or concerns If you have any questions or concerns please do not hesitate to contact me. The office is [phone]. This note is constructed using voice recognition software. While every effort has been made to ensure accuracy director search marketing strategies errors may have been included. Yours sincerely, ENEDINA Key Coding Level of Care Code Est Pt Level 3 (38868) Complex EM visit Add On G2211 Diagnoses Weak urinary stream R39.12 Lower urinary tract symptoms R39.9 Incomplete bladder emptying R33.9 Enlarged prostate N40.0 CPT Codes Post Residual Void - PVR CPT Code: 17978-Ascm Void Residual by ultrasound ([id number])
== END 2024-12-02 10:56 | disposition home or self-care (01) ==
LOC: HO.HUSH 10:30
PROVIDERS: PCP Nurse Practitioner Family; Visit Provider Nurse Practitioner Family
DX: R39.12 Poor urinary stream (principal); R39.9 Unspecified symptoms and signs involving the genitourinary system; R33.9 Retention of urine, unspecified; N40.0 Benign prostatic hyperplasia without lower urinary tract symptoms; Z13.9 Encounter for screening, unspecified
CPT/HCPCS: 99213; G2211

== ENCOUNTER 2025-01-28 10:12 | Outpatient (AMB) | payer MEDICARE, SELFPAY ==
--- OUTSIDE RECORDS SUMMARY | 2021-01-12 08:14 | XMS_ITS | Continuity of Care Document ---
Author Organization [facility] Address [address] [place] [address] Phone Care Team Providers Care Student Counselor Name Role Phone Jac Guerin MD Unavailable Unavailable Allergies, Adverse Reactions, Alerts Substance Reaction Status Criticality No Known Allergies Active No Inform ation Medications Medication Instructions Dosage Effective Dates (start - stop) Status Comments ropinirole 5 mg tablet take 1 tablet by oral route 3 times every day 5 MG - Active methylprednisolone 4 mg tablets in a dose pack take by oral route as directed per package instructions for 6 days - Active Procedures Procedure Date Office/outpatient visit,est, high Office/outpatient visit,[facility], [facility] 2020 X-ray exam of knee, 3 views Advance Directives Directive Yes / No Effective Date File Name No Information Encounters Encounter Description Practice Location Reason(s) For Visit Diagnoses Date Provider Providers Copied on Encounter [facility], [address], [place], [place], [id number], tel:[phone] [address] No Information Truong Nathan. [address], [facility] [address], [place], [place], [id number], [place]. tel:[phone] Referring Provider: Karina Reynoso, [address], [place], [address] . tel:[phone] Office/outpa tient visit,est, high [facility], [address], [place], [place], [id number], [place] tel:[phone] left knee pain (chief complaint) Left knee pain, unspecified chronicityArthr itis of knee, leftHistory of pulmonary embolismAnticoa gulation adequate 1 Truong Nathan. [address], [address], [place], [place], [id number], [place]. tel:[phone] Referring Provider: Karina Reynoso, [address], [place], [address] . tel:[phone] Office/outpa tient visit,[facility], [address], [place], [place], [address], [place] tel:[phone] left knee pain (chief complaint) Left knee pain, unspecified chronicityArthr itis of knee, left 1 Robinson Collins. [address], [address], [place], [place], [address], [place]. tel:[phone] Referring Provider: Karina Reynoso, [address], [place], [address] . tel:[phone] Family History Family Member Type Diagnosis Age At Onset No Information Payers Payer name Insurance type Covered republican ID Authorblanea tipanfilo(s) MEDICARE MB [id number] [facility] [id number] Social History Type Description Quantity Date Captured Comments Alcohol Use Details Unknown Caffeine Use Details Unknown Tobacco Use Status No Information Smoking Status No Information Sex Male Chief Complaint And Reason For Visit No Information Reason For Referral Reason For Referral No Information Plan Of Treatment Date Type Action Status Referral Ordered: Lexus Garcia MD (related to History of pulmonary embolism) ordered Referral Referred To: Lexus Garcia MD [address] [place], [phone] Ordered: Referrals: Lexus Garcia MD. Evaluate and treat ordered Referral Ordered: X-ray exam of knee, 3 views LT ordered Patient Education Knee Pain or Injury: Idania re Instructions completed Patient Education A Healthy Lifestyle: Ca re Instructions completed History Of Present Illness Encounter Date Complaint History Of Prese nt Illness left knee pain Mingo Osei is a 65 year old male. Patient last saw Karina VAUGHN on 12/17/20. He reports he was supposed to get a knee replacement back in in [place]. Patient has a history of PE and is currently taking Xarelto. He is currently taking Prednisone which is helping. His government affairs manager cleared him. He comes in to discuss surgery here in [place]. He presents with pain on the left side. The symptoms occur constantly. The problem is fluctuating. Currently the patient states that the symptoms are moderate-severe. The pain is described as aching and discomforting. He also reports additional pain in the entire knee region on the left side. He rates his worst pain as 9/10. He rates his current pain as 5/10. The pain does not radiate. The symptoms are aggravated by walking and daily activities. In addition to left knee pain the patient is also experiencing nighttime awakening and clicking. left knee pain Mr Osei is a 65 year old male who complains of left knee pain. Patient presents with ongoing pain to the left knee. Patient states that he is scheduled for a left knee replacement in March 2021 in [facility]. Patient denies recent injury or trauma to the left knee. He presents with pain on the left side. The symptoms occur occasionally. The problem is fluctuating. Currently the patient states that the symptoms are mild-moderate. The pain is described as discomforting and throbbing. The symptoms occur with activity. He rates his best pain as 4/10. He rates his worst pain as 8/10. He rates his current pain as 6/10. The pain does not radiate. The symptoms are aggravated by daily activities and movement. Mingo states that the symptoms are relieved by rest. In addition to left knee pain the patient is also experiencing decreased mobility, pain and pain after activity. He denies having any pertinent negatives. Functional Status Date Functional Assessmen t No Information Instructions Date Instruction Additional Infor renate I reviewed his x-ray s. He has [id number] changes in the medial compartment of the left knee. He has failed conservative treatment and wishes to proceed with total knee replacement. He was scheduled in September 2020 but had a pulmonary embolism and had to cancel. He is ready to proceed after 6 months of being on anticoagulation. He saw a automatic tire tester who told him he did not have any increased risk factors for pulmonary embolism and it is felt that the embolism occurred because of his driving down from [place]. I explained that a filter might be in order preoperatively. We will schedule this with Dr. Garcia. We will proceed with a left total knee replacement thereafter as an outpatient at [facility] for surgery. Risks including but not limited to infection, DVT, stiffness, clicking and swelling were all discussed. All of his questions were addressed and answered. We will use persona implant. Related to Arthritis of knee, left I offered the manuel ba a medrol dose pack for pain. Encourage him to continue ice prn. I will arrange for him to f/u with Dr. Guerin to discuss possible TKA scheduling for March. Related to Arthritis of knee, left Assessments Type Assessment Date No Information Patient Care Teams Name Effective Dates (start - stop) Status Members No Information
--- OUTSIDE RECORDS SUMMARY | 2024-09-08 03:30 | XMS_ITS ---
Author Organization [facility] Address [address] [place] [address] Care Team Providers Care Early Childhood Associate Teacher Name Role Phone Rahul Dangelo Primary Care Provider Unav Celina Rodríguez Unavailable [phone] Medications Medication SIG (Take, Route, Fr equency, Duration) Notes Start Date End Date Status Tamsulosin HCl Activ e rOPINIRole HCl Activ e Finasteride Active Buprenorphine Active Social History Tobacco Use: Social History Observation Description Date Details (start date - stop date) Never Smoker NA - NA Tobacco use other than smoking: Question Answer Notes Are you an other tobacco user? No Tobacco Control (Standard) Question Answer Notes Tobacco use: Nonsmoker AUDIT-C (Standard) Question Answer Notes Did you have a drink contain ing alcohol in the past year? Yes How often did you have a dri nk containing alcohol in the past year? Never (0 point) How many drinks did you have on a typical day when you were drinking in the past year? 1 or 2 drinks (0 point) How often did you have six o r more drinks on one occasion in the past year? Never (0 point) Points 0 Interpretation Negative Encounters Encounter Location Date Provider Diagnosis [facility] [address] [place] [address] 09/08/2024 Celina Sheikh Plan Of Treatment No Information Progress Notes * Mingo OSEIDOB:[birth year] (69 yo M)Acc No.[id number]:09/08/2024 Progress Notes Patient: Ramana Mingo [place]ONE Provider: Dolly Sheikh DPM :1955 A ge:68 Y S ex:Male Date:09/08/2024 Address[address] [place] Pcp:Rahul Zhou CANVASSING MANAGER-ERASMO Subjective: * Chief Complaints: * * ROS: G eneral/Constitutional: Nausea d enies. V omiting d enies. H nneka Thirst d enies. L oss appetite d enies. C hills d enies. F atigue d enies.?Fever d enies. N ight Sweats d enies. U nexplained weight loss d enies. U nexplained weight gain d enies. H EENTM: Dentures d enies. D izziness d enies. G lasses/contacts a dmits. R etinopathy d enies. B lurred/double vision d enies. T MJ?denies. D ischarge/drainage d enies. I mplants d enies. S ore throat d enies. D ental implants d enies. H tamia of hearing d enies. D ifficulty chewing/swallowing/speaking d enies. N ose bleeds d enies. S ore mouth d enies. ? R espiratory: On Oxygen d enies. P neumonia/pleurisy d enies.?Bronchitis d enies. E mphysema d enies. C oughing d enies. C ough blood?denies. S hortness of breath d enies. W heezing d enies. C ardiovascular: Pacemaker d enies. M FACTORY ASSEMBLER d enies. W PW d enies. C HF d enies. H eart attack d enies. S eptal defect d enies. R apid beat d enies. C hest pain d enies. A trial Fib. d enies. M urmur/Palpitations d enies. G astrointestinal: Hemorrhoids d enies. S tomach/Abdominal pain d enies. D ark blood stool d enies. I rritable bowel d enies. C onstipation d enies. D iarrhea d enies. H ematology: Swelling d enies. C lots d enies. V aricose Veins a dmits. B ruising d enies. B leeding problem d enies. G enitourinary: Blood urine d enies. F requent/Painfu/urination/bladder control d enies. K idney stones d enies. I nfection (UTI) d enies. N ephropathy d enies. s ex trans dis (STD) d enies. P rostate a dmits. M usculoskeletal: Hammertoes d enies. B unions d enies. B ack Pain d enies. M uscle Cramps/ Resting d enies. M uscle cramps / walking d enies.?Generalized aches and pains d enies. W eakness d enies. I nteg.: Hdz d enies. S cars d enies. C orns/calluses?denies. I ngrown nails d enies. P ainful nails d enies. O pen Sores d enies. R ashes d enies. N eurologic: Difficulty sleeping d enies. B rain disorder d enies. N umbness d enies. B alance trouble d enies. C onfusion d enies. F ainting/blackouts d enies. T ingling d enies. T remors d enies. * Medical History: C ataracts, Joint implants/screws, Restless Leg Syndrome. * Family History: M other: . F ather: , diagnosed with Diabetic - NIDDM. * Social History: T obacco Use: T obacco use other than smoking A re you an other tobacco user? N o Tobacco Control (Standard) T obacco use: N onsmoker D rugs/Alcohol: D rugs H ave you used drugs other than those for medical reasons in the past 12 months? N o M iscellaneous: C affeine: yes, frequency:. Children: yes, 1. Exercise: yes, Golf, Kayaking. Marital status: . D rug/Alcohol: A STEPHANIE-C (Standard) D id you have a drink containing alcohol in the past year? Y es H ow often did you have a drink containing alcohol in the past year? N ever (0 point) H ow many drinks did you have on a typical day when you were drinking in the past year? 1 or 2 drinks (0 point) H ow often did you have six or more drinks on one occasion in the past year? N ever (0 point) P oints 0 I nterpretation N egative * Medications: T aking rOPINIRole HCl , Taking Buprenorphine , Taking Finasteride , Taking Tamsulosin HCl Objective: * Vitals: Assessment: Plan: * Treatment: * Images: * The named appointment provid er may or may not be the originator of this progress note, and it is not deemed complete until electronically signed by the appointment provider. Sign off status: Pending * Provider: Dolly Sheikh DPM Date: 0 09/08/2024 Generated for Jelena corea/Luz Maria/Kassidy on: 03/30/2024 02:59 PM EST
[2025-01-28 10:24] VITALS: BP 118/66; PULSE 56; TEMP 36.7; O2SAT 96; BMI 33.8
--- NOTE | 2025-01-28 10:24 | AM.OFFWIN_ITS ---
Intake Vital Signs 01/28/25 10:24 Height 6 ft Weight 249 lb BMI 33.8 BP 118/66 Blood Pressure Location Lt brachial Position Sitting Pulse 56 Pulse Source Pulse Oximeter Temp 98.1 F Temp Source Oral Pulse Oximetry (%) 96 Oxygen Delivery Method Room Air Intake Visit Reasons: EP Tick bite, dizziness/fatigue Intake Note: pt presents with concern for dizziness, mental fog, neck ache and fatigued for a few days after a tick bite 10 days ago Patient Tobacco Use Status: Never used Tobacco Allergies No Known Allergies (No Known Allergies*) Allergy (Verified 01/28/25 10:24) Do you need a note to return to daycare/school/sports/work: No HPI HPI Comments History of Present Illness Details History - The patient is a 69-year-old individua l presenting with fatigue, dizziness, and a history of a recent tick bite. - Fatigue began suddenly on Saturday while watching football, characterized by prolonged sleep episodes and persistent tiredness throughout the week. - Dizziness accompanies the fatigue, wit h no associated cold symptoms initially reported. - The patient experienced a sore throat until the day before the visit, with minimal cough and chest congestion. - A tick bite occurred in [place], with the tick embedding itself and requiring removal, leaving a red wisam that has since improved. - The patient reports a stiff neck after walking, with no joint pain or muscle aches. - A COVID-19 test conducted the day befo re the visit was negative. - He states that he has been generally t ired which is not normal for him. - He is not sure if anyone else is sick he was with. - He denies CP, ear pain, sore throat, S OB, abd pain, n/v/d, rashes or lesions. - He has not had a fever. Physical Exam General: Cooperative, healthy appearing, comfortable, no acute distress and well developed Orientation: Patient oriented x3 Limitations: No limitations Head: Normal to inspection Ears: Hearing grossly normal bilaterally Face and sinus: Normal facial exam Eyes: Appearance normal, both eyes and all related structures Neck: FROM of the neck. Cardiac: RRR, no m/r/g noted. Respiratory: Normal respiratory effort and able to speak in complete sentences. No w/r/r noted. Skin: Small, healed tick bite noted on the right anterior chest by the clavicle with no erythema noted. Neuro: Patient oriented x3. CN II- XII intact. Patient was informed and verbally consented to the use of an ambient scribe for clinic note documentation during this visit. [facility] Medical History Central sleep apnea Insomnia Restless leg syndrome On anticoagulant therapy Pulmonary emboli Pulmonary embolism Sinus bradycardia Sleep apnea Restless leg Surgical History (Reviewed 10/06/24 @ 09:42 by Rahul Zhou [facility] History of left knee replacement Hx of colonoscopy History of umbilical hernia repair Family History Father History of CVA (cerebrovascular accident) Diabetes mellitus Mother Diabetes mellitus Social History Household Members: Spouse Housing: House Are you a primary career placement services counselor to a significant other at home: No Do you presently have visiting nurse or other home services: No Alcohol intake: current Alcohol intake frequency: a few times a month Patient Tobacco Use Status: Never used Tobacco e-Cigarette/Vaping Use: Never Used Second Hand Smoke Exposure: No service: No Current occupational status: retired Current occupation: right handed Cognitive needs: No Hearing needs: No Vision needs: No Review of Systems Const All systems reviewed & are unremarkable except as noted in HPI and below Physical Exam Vital Signs: Last Vital Signs Temp 98.1 F 01/28/25 10:24 Pulse 56 01/28/25 10:24 BP 118/66 01/28/25 10:24 Pulse Ox 96 01/28/25 10:24 Oxygen Delivery Method Room Air 01/28/25 10:24 BMI result Body Mass Index 33.8 Assessment & Plan Assessment & Plan (1) Tick bite of chest wall: Code(s): S20.369A - Insect bite (nonvenomous) of unspecified front wall of thorax, initial encounter; W57.XXXA - Bitten or stung by nonvenomous insect and other nonvenomous arthropods, initial encounter Qualifiers: Encounter type: initial encounter Laterality: right Qualified Code(s): S20.361A - Insect bite (nonvenomous) of right front wall of thorax, initial encounter; W57.XXXA - Bitten or stung by nonvenomous insect and other nonvenomous arthropods, initial encounter (2) Dizziness: Code(s): R42 - Dizziness and giddiness Plan Most likely viral illness after travel or lyme disease due to the tick bite plan - Perform a Lyme disease test to assess for potential infection from the tick bite. - Conduct COVID-19, flu, and RSV swabs to rule out viral infections acquired during travel. - Initiate a course of antibiotics prophylactically to prevent Lyme disease, to be taken for seven days. - Advise the patient to monitor for symptoms such as chest pain, dizziness, weakness, or stroke-like symptoms, and seek emergency care if they occur. Orders: Orders SARS-CoV2/FLU/RSV Today R09.89 - Other specified symptoms and signs involving the circulatory and respiratory systems Lyme IgG/IgM w/reflex to WB Today W57.XXXA - Bitten or stung by nonvenomous insect and other nonvenomous arthropods, initial encounter Medications: New doxycycline hyclate 100 mg PO BID 14 tabs 0RF Coding Level of Care Code Est Pt Level 4 (24620) Diagnoses Tick bite of right side of chest wall, initial encounter S20.361A; W57.XXXA Encounter type: initial encounter Laterality: right Dizziness R42
--- OUTSIDE RECORDS SUMMARY | 2025-01-28 15:00 | XMS_ITS | Patient Health Record ---
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 the day before the procedure; Duration: 1 day 08/08/2022 Active rOPINIRole HCl Activ e Xtampza ER 13.5 MG Capsule ER 12 Hour Abuse-Deterrent Oral; Duration: 30 Active Immunizations Vaccine Route Administration Date Status Comme nts Influenza Unknown 12/19/2021 Administered Social History Social History Additional Details Category Social Info Options Details Miscellaneous: Marital status: Occupation: retired Section Notes: Tobacco use is negative, alc ohol use is one to 2 drinks per month. Tobacco use is negative, alc ohol use is one to 2 drinks per month. Tobacco use is negative, alc ohol use is one to 2 drinks per month. Problems Problem Type SNOMED Code ICD Code Onset Dates Problem Status W/U Status Risk Notes Problem Screening for malignant neoplasm of colon (394376472) Special screening for malignant neoplasms, colon (V76.51) Active confirmed Problem Colon cancer screening (658376777) Colon cancer screening (Z12.11) Active confirmed Problem Pre-procedure evaluation check (041289084) Encounter for other preprocedural examination (Z01.818) Active confirmed Plan Of Treatment Future Test Test Name Order Date COLONOSCOPY 05/04/2011 COLONOSCOPY 06/13/2016 COLONOSCOPY 08/08/2022 Insurance Providers Payer Name Payer Address Payer Phone Subscriber Number Group Number Insured Name Patient Relationship to Insured Coverage Start Date Coverage End Date MEDICARE OF [place] [address] [place] [id number] CARTER BRADY Self - patient is the insured [facility] [address] [place], [place] [id number] [phone] [id number] CARTER BRADY Self - patient is the insured Medical (General) History Medical History History ICD Code Restless leg syndrome Central sleep apnea Colon polyps, colonoscopy 08/25, five-yea r followup Surgical History Surgery Date(Month/Year) knee surgery left Umbilical hernia repair 04/29
--- OUTSIDE RECORDS SUMMARY | 2025-01-28 15:01 | XMS_ITS | Patient Health Record ---
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 Name Role Phone Rahul Dangelo Primary Care Provider Unav ailCelina Camargo Unavailable [phone] Reason For Referral No Information Medications Medication [...] Negative Encounters Encounter Location Date [facility] [place] [address] [place] [address] [facility] [address] [place] [address] [facility]/08/2024 Celina Sheikh Plan Of Treatment No Information Insurance Providers Payer Name Payer Address Payer Phone Subscriber Number Group Number Insured Name Patient Relationship to Insured Coverage Start Date Coverage End Date Medicare National Govt [facility] [address] [place] [address] [id number] Mingo Osei Self - patient is the insured [employer] [address] [place] [address] [phone] [id number] Mingo Osei Self - patient is the insured Medical (General) History Medical History History ICD Code Cataracts Joint implants/screws Restless Leg Syndrome
== END 2025-01-28 11:10 | disposition home or self-care (01) ==
PROVIDERS: PCP Nurse Practitioner Family; Visit Provider Physician Assistant Medical
DX: S20.361A Insect bite (nonvenomous) of right front wall of thorax, initial encounter (principal); W57.XXXA Bitten or stung by nonvenomous insect and other nonvenomous arthropods, initial encounter; R42 Dizziness and giddiness

== ENCOUNTER 2025-01-28 10:12 | Outpatient (REF) | payer MEDICARE, SELFPAY ==
[2025-01-28 14:37] LABS: Resp Syncy Virus RNA Qual PCR NEGATIVE (Negative); SARS COV2 PCR INHOUSE NEGATIVE (Negative)
[2025-01-29 06:54] LABS: Lyme Abs Screen <0.90 index
== END 2025-01-28 10:13 | disposition home or self-care (01) ==
LOC: HO.HMGCLDS 10:12
PROVIDERS: PCP Nurse Practitioner Family; Visit Provider Physician Assistant Medical
DX: S20.361A Insect bite (nonvenomous) of right front wall of thorax, initial encounter (principal); R42 Dizziness and giddiness; Z01.84 Encounter for antibody response examination; R09.89 Other specified symptoms and signs involving the circulatory and respiratory systems; W57.XXXA Bitten or stung by nonvenomous insect and other nonvenomous arthropods, initial encounter
CPT/HCPCS: 36415; 86617; 86618; 87637; 99212